=== PATIENT | female | born 1940 | race Caucasian/White ===

== ENCOUNTER 2019-09-15 08:40 | Outpatient (RCR) | payer MEDICARE, OTHER, SELFPAY ==
[2019-09-15 10:25] LABS: Basophils % 0.4 %; Eosinophils # 0.1 10^3/uL (0.0-0.8); Hematocrit 27.5 % (37.0-47.0); Hemoglobin 8.8 g/dL (11.5-15.3); Lymphocytes # 1.3 10^3/uL (0.8-4.8); Mean Corpuscular Hemoglobin 32.4 pg (28.0-34.0); Mean Corpuscular Volume 101.1 fL (81-99); Mean Platelet Volume 10.4 fL (7.4-10.4); Monocytes # 0.7 10^3/uL (0.2-0.9); Monocytes % 13.7 %; Neutrophils # 2.8 10^3/uL (1.8-7.7); Neutrophils % 56.5 %; Nucleated Red Blood Cells % 0 %; Platelet Count 142 10^3/cmm (130-400); Red Blood Count 2.72 10^6/uL (4.1-5.3); Red Cell Distribution Width 18.7 % (12.1-15.1); White Blood Count 4.9 10^3/uL (4.0-10.0)
[2019-09-15 10:42] LABS: Alanine Aminotransferase 9 U/L (0-33); Alkaline Phosphatase 48 IU/L (35-105); Anion Gap 15.7 (5-19); Aspartate Amino Transferase 23 U/L (0-32); Blood Urea Nitrogen 10 mg/dL (8-23); Calcium 9.5 mg/Dl (8.8-10.2); Carbon Dioxide 23 mmol/L (22-29); Chloride 103 mmol/L (98-107); Globulin 2.2 g/dL (1.3-4.6); Glucose 93 mg/dL (74-106); Potassium 3.7 mmol/L (3.5-5.1); Sodium 138 mmol/L (136-145); Total Bilirubin 0.5 mg/dL (0.15-1.2); Total Protein 6.2 g/dL (6.6-8.7)
--- NOTE | 2019-09-15 11:57 | ONC FU_ITS ---
[facility] Patient Note Patient: Lola Lozano Unit #: [id number]: 1940 Dictated By: Ray Wade M.D.Date of Visit: Sep 15, 2019 Onc MED Follow-Up/Prog Note Chief Complaint: Lung cancer. 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 In April 2019 she was admitted to [facility] in [place] after presenting with confusion and frequent falls. Her brain MRI showed a 2.5 x 3.8 x 2.3 cm left anterior frontal convexity mass with surrounding edema extending into the frontal, temporal, and anterior parietal subcortical and periventricular white matter. Her chest x-ray showed a left hilar mass. Her initial staging CT scans showed an irregularly marginated soft tissue density mass in the left suprahilar region measuring 4.5 cm. There was encasement and obstruction of a segmental branch of the left upper lobe bronchus. There was no evidence of mediastinal mass/adenopathy. A subtle opacity in the upper lobe of the right lung was felt to represent minimal infiltrate versus ill-defined small nodule. There were no other findings of metastatic disease. On 04/28/2019 she underwent left frontal craniotomy with resection of the mass. Pathology showed metastatic adenocarcinoma consistent with lung primary. The tumor was found to be negative for the ALK and ROS1 gene rearrangements. EGFR and BRAF mutations were not detected. PD-L1 expression was positive at 10% (membranous positivity). Her staging PET/CT on 05/23/2019 showed an FDG avid left hilar mass measuring 4.9 x 4.2 cm, SUV 13.84. A 1.3 cm nodular density in the upper lobe of the right lung showed no significant FDG uptake, SUV 0.68, consistent with benign disease. There was mild focal increased metabolic activity in the distal esophagus, maximum SUV 4.76, felt to be consistent with inflammatory changes. There was no evidence of mediastinal or distant metastatic disease. Follow recovery from the surgery she underwent CyberKnife radiosurgery, completed on 06/04/2019. She then underwent radiation concurrently with weekly carboplatin/paclitaxel chemotherapy to the primary lesion in the left lung. She completed her radiation on 08/01/2019. She received her sixth weekly infusion of carboplatin/paclitaxel on 07/30/2018. Overall, she tolerated the treatment well. Dr Wade had seen her initially on 08/05/2019. At that point she was still having some difficulty with swallowing and eating following the chemoradiation. She was having daily epistaxis, and she also was having significant diarrhea. She was treated empirically with Levaquin and acyclovir. Her stool was tested and was negative for C. difficile. Restaging CT of the chest on 08/12/2019 showed persistent left hilar region mass or lymphadenopathy measuring 4.8 right 3.6 x 2.6 cm. It appeared to have decreased slightly compared to the pretreatment PET/CT. There was persistent groundglass density in the posterior segment right upper lobe and there are small bilateral pleural effusions. There was no evidence of metastatic disease. She was seen in August 2019 for followup. She did have follow-up CT of the chest on 08/12/2019. It did report left hilar region neoplastic mass or lymphadenopathy. Persistent groundglass density posterior segment right upper lobe. Small bilateral pleural effusions. Chronic emphysema and extensive arteriosclerotic cardiovascular and peripheral vascular changes. Cardiomegaly and prior coronary bypass grafting and mitral valve replacement. Diffuse cortical atrophy of the left kidney. Cholelithiasis. Mrs. Lozano has been offered maintenance therapy with durvalumab. She will start her first cycle today. Ms. Lozano is here today for follow-up. She states overall she is feeling good. She has no new concerns. She denies any fever or chills. She states she is just cold in general which is normal for her. She denies any new shortness of breath. She denies orthopnea. She states she has not had any diarrhea or constipation. Her energy is about the same as always. Her appetite is good. She was informed that her hemoglobin is 8.8 today but she states she does not feel that bad and does not feel that she needs blood currently. Her ECOG is 1. Past Medical History: Carotid stenosis Chronic kidney disease Clostridium difficile colitis Congestive heart failure Coronary artery disease Hyperlipidemia Hypertension Peripheral arterial disease Renal artery stenosis Past Surgical History: Coronary angioplasty/stent placement Femoropopliteal bypass bilaterally ORIF for left ankle fracture ORIF for left foot fracture Right Right carotid endarterectomy Right internal juglar venous access device-[facility] [place] in 2018 Craniotomy with resection of left frontal lobe brain mass in 2019 Aortofemoral bypass in 2004 Renal artery stent placement in 2003 Triple-vessel coronary artery bypass in 2003 Allergies: No Known Allergies. Medications: Atorvastatin Calcium 1 Tablet (of 80 mg) Oral daily Bystolic 1 Tablet (of 5 mg) Oral daily Captopril 1 Tablet (of 25 mg) Oral b.i.d. Felodipine ER 1 Tablet (of 5 mg) Tablet SR 24 HR Oral daily Ondansetron HCl 1 Tablet (of 4 mg) Oral b.i.d. Prochlorperazine Maleate 1 Tablet (of 10 mg) Oral b.i.d. Family History: Ms. Lozano's mother at age 60: bone cancer, and diabetes. Ms. Lozano's father at age 72: old age. Ms. Lozano has 1 brother who is : bone cancer. She has 2 sisters: 2 alive. Father at age 72, reportedly of old age. Mother at age 60 with advanced malignancy. She also had diabetes. Primary site unknown to the patient. A brother at age 74, bone cancer. Two sisters are still living. One is known to have a cerebral aneurysm. Social History: Ms. Lozano is and she is retired. Ms. Lozano quit smoking less than one year ago but had smoked 0.5 packs/day for 60 years. She quit drinking 15 years ago. She has a history of smoking beginning at age 17, but reportedly no more than 6 cigarettes per day. She quit smoking in May 2019. She also had a long history of alcohol use, at times heavy. She quit drinking in 2003. Review Of Symptoms: Constitutional Denies fevers, chills, night sweats, excessive fatigue or weight loss. Allergic/Immunologic No reactions. Eyes Denies significant visual changes. No diplopia. No amaurosis. ENMT Denies changes in hearing, sore throat, mouth sores, difficulty or changes in swallowing ability, and/or sinus drainage. Endocrine No diabetes, thyroid disease or hormone replacement. Denies hot flashes or night sweats. Hematologic/Lymphatic Denies easy bruising or bleeding. The patient denies any tender or palpable lymph nodes. Respiratory Denies dyspnea on exertion, chest pain, cough or hemoptysis. Denies orthopnea. Cardiovascular Denies anginal chest pain, palpitations or orthopnea. Gastrointestinal Denies nausea, vomiting, diarrhea, GI bleeding, or constipation. Denies change in bowel habits and/or stool color, no heartburn or early satiety. Genitourinary (F) No hematuria, hesitancy, incontinence, vaginal bleeding, discharge or other problems with urination. Musculoskeletal Denies joint pain, swelling or redness. No decreased range of motion. Integumentary Denies chronic rashes, inflammation, ulcerations or skin changes. Neurologic Denies headache, blurred vision, and no areas of focal weakness or numbness. Normal gait. No sensory problems. Psychiatric Denies insomnia, depression, bebe or mood swings. Vital Signs: Performed on Sep 15, 2019 10:52 Height - 60.00 in Weight - 120.0 lbs (LOW) BSA - 1.50 sq.m BMI - 23.44 Temperature - 98.9 F (HIGH) Pulse - 67 /min Respiration - 16 /min BP - 144/65 mm(hg) (HIGH) O2 Sat - 96 % Pain - 0,1 - No physically strenuous activity, but ambulatory and able to carry out light or sedentary work (e.g. office work, light house work). (ECOG) Physical Examination: Constitutional Alert, oriented, no acute distress. Skin pink, warm and dry. Head Normocephalic; atraumatic. Eyes Conjunctivae and sclerae are clear and without icterus. Pupils are reactive and equal. ENMT No oral exudates, ulcers, masses, thrush or mucositis. Oropharynx clear. Tongue normal. Neck Supple without masses or thyromegaly. No jugular venous distension. Hematologic/Lymphatic No petechiae or purpura. No tender or palpable lymph nodes in the cervical or supraclavicular areas. Respiratory Lungs are clear to auscultation without rhonchi or wheezing. Cardiovascular Regular rate and rhythm of heart without murmurs,clicks, gallops or rubs. Chest Bruising in mid chest and right subclavian area due to recent Port a Cath insertion. Abdomen Non-tender, non-distended, no masses or ascites. Good bowel sounds noted in all quads. No guarding or rebound tenderness. No pulsatile masses. Back/Spine Non-tender to palpation. Extremities No visible deformities, no cyanosis, clubbing or edema. Musculoskeletal No tenderness or swelling, normal range of motion without obvious weakness. Integumentary No rashes or lesions. Neurologic No sensory or motor deficits, normal cerebellar function, normal gait. Psychiatric Alert and oriented times three. Coherent speech. Verbalizes understanding of our discussions today. Laboratory:Test performed on Sep 15, 2019 10:15 Glucose 93 mg/dL BUN 10 mg/dL Creatinine 0.8 mg/dL Cr Clearance (Est) 53.39 mL/min Sodium 138 mmol/L Potassium 3.7 mmol/L Chloride 103 mmol/L CO2 23 mmol/L Calcium 9.5 mg/dL Protein, Total 6.2 g/dL Albumin 4 g/dL Globulin 2.2 g/dL Bilirubin, Total 0.5 mg/dL Alkaline Phosphatase 48 IU/L AST (SGOT) 23 IU/L ALT (SGPT) 9 IU/L WBC 4.9 10^9/L RBC 2.72 10^12/L HGB 8.8 g/dL HCT 27.5 % MCV 101.1 fl MCH 32.4 pg MCHC 32 g/dL RDW 18.7 % Platelet Count 142 10^9/L MPV 10.4 fL Neutrophils (Gran) 2.8 10^9/L Lymphocytes 1.3 10^9/L Monocytes 0.7 10^9/L Eosinophils 0.1 10^9/L Basophils 0 10^9/L Impression: 1. 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 2. She underwent craniotomy with resection of left frontal lobe metastasis on 04/28/2019. Pathology showed metastatic adenocarcinoma consistent with lung primary. The tumor was negative for ALK and ROS1 rearrangements, and EGFR and BRAF mutations were not detected. The tumor showed positive PD-L1 expression at 10% (membranous positivity). 3. She underwent CyberKnife radiosurgery to the site of brain involvement, completed on 06/04/2019. 4. She then underwent treatment to the primary lesion in the left lung with radiation concurrently with weekly carboplatin/paclitaxel chemotherapy. Radiation was completed on 08/01/2019. She received a total of 6 weekly infusions of chemotherapy. Her other medical illnesses include: 5. Hypertension. 6. Hyperlipidemia. 7. Coronary artery disease with previous myocardial infarction and with triple coronary bypass in 2003. 8. Congestive heart failure. 9. Carotid stenosis with previous right carotid endarterectomy. 10. Peripheral arterial disease with previous aortofemoral bypass and femoropopliteal bypass bilaterally. 11. Renal artery stenosis with previous renal artery stent placement. 12. Chronic kidney disease. 13. Her records indicate a history of clostridium difficile colitis. Overall, she tolerated the chemoradiation pretty well. She does appear to have some response, though not dramatic. She did have follow-up CT of the chest on 08/12/2019. It did report left hilar region neoplastic mass or lymphadenopathy. Persistent groundglass density posterior segment right upper lobe. Small bilateral pleural effusions. Chronic emphysema and extensive arteriosclerotic cardiovascular and peripheral vascular changes. Cardiomegaly and prior coronary bypass grafting and mitral valve replacement. Diffuse cortical atrophy of the left kidney. Cholelithiasis. Mrs. Lozano has been offered maintenance therapy with durvalumab. She will start her first cycle today. Plan: 1. Proceed with cycle 1 durvalumab. 2. No planned premedication. 3. Today's labs were reviewed in detail and discussed with Ms. Lozano and a copy was given to her. WBC 4.9, hemoglobin 8.8, platelets 142,000 ANC is 2800. Creatinine 0.8 LFTs are normal random glucose is 93. 4. It is noted the bruising from recent Port-A-Cath insertion is healing. 5. We will plan to see her back in 2 weeks for cycle 2 durvalumab with CBC CMP and TSH. 6. I did request follow-up B12 and folate level for anemia. Her MCV is elevated. I also added a baseline TSH for immunotherapy monitoring today. 7. Mrs. Lozano was instructed to contact us in the interim should questions or problems arise. 8. Specific side effects of immunotherapy discussed included but not limited to: ??? pneumonitis: new or worsening cough; chest pain; and shortness of breath. ??? Colitis: diarrhea or more bowel movements than usual; blood in stools or dark, tarry, sticky stools; and severe stomach area (abdomen) pain or tenderness. ??? hepatitis: jaundice; severe nausea or vomiting; pain on the right side of the abdomen; drowsiness; dark urine; bleeding or bruise more easily than normal. ??? nephritis and kidney failure: including decrease in the amount of urine; hematuria; lower extremity edema; and loss of appetite. pancreatitis; hyperglycemia. ??? thyroid and pituitary changes that may include: headaches that will not go away or unusual headaches; extreme tiredness, weight gain or weight loss; changes in mood or behavior, such as decreased sex drive, irritability, or forgetfulness; dizziness or fainting; hair loss; feeling cold; constipation; and voice gets deeper. ???rash; changes in eyesight; severe or persistent muscle or joint pains; and severe muscle weakness. The majority of this visit was time spent face to face in review of plan of care, side effect identification and management. Signed By:PIETER Ramirez, AOLEBRON Wade M.D. <<Signature on File>>
[2019-09-16 09:06] LABS: Thyroid Stimulating Hormone 1.56 uIU/mL (0.27-4.20); Vitamin B12 303 pg/mL (232-1245)
[2019-09-16 09:07] LABS: Folate Level 8.5 ng/mL (4.8-37.3)
[2019-09-29 13:43] LABS: Basophils % 0.4 %; Eosinophils # 0.2 10^3/uL (0.0-0.8); Eosinophils % 2.6 %; Hemoglobin 10.1 g/dL (11.5-15.3); Lymphocytes # 1.8 10^3/uL (0.8-4.8); Lymphocytes % 26.7 %; Mean Corpuscular HGB Conc 31.6 g/dL (30.0-36.0); Mean Corpuscular Hemoglobin 33.2 pg (28.0-34.0); Mean Corpuscular Volume 105.3 fL (81-99); Mean Platelet Volume 9.9 fL (7.4-10.4); Monocytes # 0.8 10^3/uL (0.2-0.9); Monocytes % 11.6 %; Neutrophils % 58.4 %; Nucleated Red Blood Cells % 0 %; Platelet Count 148 10^3/cmm (130-400); Red Blood Count 3.04 10^6/uL (4.1-5.3); Red Cell Distribution Width 16.6 % (12.1-15.1); White Blood Count 6.9 10^3/uL (4.0-10.0)
[2019-09-29 14:39] LABS: Alanine Aminotransferase 12 U/L (0-33); Albumin Level 3.6 g/dL (3.5-5.2); Alkaline Phosphatase 49 IU/L (35-105); Anion Gap 17.1 (5-19); Aspartate Amino Transferase 31 U/L (0-32); Blood Urea Nitrogen 12 mg/dL (8-23); Carbon Dioxide 23 mmol/L (22-29); Chloride 103 mmol/L (98-107); Globulin 3.7 g/dL (1.3-4.6); Glucose 90 mg/dL (74-106); Potassium 4.1 mmol/L (3.5-5.1); Sodium 139 mmol/L (136-145); Thyroid Stimulating Hormone 1.76 uIU/mL (0.27-4.20); Total Bilirubin 0.6 mg/dL (0.15-1.2); Total Protein 7.3 g/dL (6.6-8.7)
== END 2019-10-10 23:59 | disposition home or self-care (01) ==
LOC: ONCMED 08:40
PROVIDERS: Nurse Practitioner; Visit Provider Internal Medicine Medical Oncology
DX: Z51.12 Encounter for antineoplastic immunotherapy (principal); C34.02 Malignant neoplasm of left main bronchus; C79.31 Secondary malignant neoplasm of brain; J43.9 Emphysema, unspecified; I25.10 Atherosclerotic heart disease of native coronary artery without angina pectoris; I73.9 Peripheral vascular disease, unspecified; N18.9 Chronic kidney disease, unspecified; I10 Essential (primary) hypertension; I50.9 Heart failure, unspecified; E78.5 Hyperlipidemia, unspecified; Z79.899 Other long term (current) drug therapy; Z95.1 Presence of aortocoronary bypass graft; Z95.2 Presence of prosthetic heart valve; Z95.5 Presence of coronary angioplasty implant and graft; Z92.3 Personal history of irradiation
CPT/HCPCS: 80053; 82607; 82746; 84443; 85025; 96413; 99214; A4222; J7050; J9173

== ENCOUNTER 2019-09-29 12:44 | Outpatient (CLI) | payer MEDICARE, OTHER, SELFPAY ==
--- NOTE | 2019-10-03 21:22 | ONC FU_ITS ---
Dr. Wade Patient Follow-Up Note Patient: Lola Lozano Unit #: [id number]: [id number] Dicatated By: Ray Wade M.D.Date of Visit:Sep 29, 2019 Onc Med Follow-up/Prog Note Chief Complaint: Lung cancer. 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 In April 2019 she was admitted to [facility] in [place] after presenting with confusion and frequent falls. Her brain MRI showed a 2.5 x 3.8 x 2.3 cm left anterior frontal convexity mass with surrounding edema extending into the frontal, temporal, and anterior parietal subcortical and periventricular white matter. Her chest x-ray showed a left hilar mass. Her initial staging CT scans showed an irregularly marginated soft tissue density mass in the left suprahilar region measuring 4.5 cm. There was encasement and obstruction of a segmental branch of the left upper lobe bronchus. There was no evidence of mediastinal mass/adenopathy. A subtle opacity in the upper lobe of the right lung was felt to represent minimal infiltrate versus ill-defined small nodule. There were no other findings of metastatic disease. On 04/28/2019 she underwent left frontal craniotomy with resection of the mass. Pathology showed metastatic adenocarcinoma consistent with lung primary. The tumor was found to be negative for the ALK and ROS1 gene rearrangements. EGFR and BRAF mutations were not detected. PD-L1 expression was positive at 10% (membranous positivity). Her staging PET/CT on 05/23/2019 showed an FDG avid left hilar mass measuring 4.9 x 4.2 cm, SUV 13.84. A 1.3 cm nodular density in the upper lobe of the right lung showed no significant FDG uptake, SUV 0.68, consistent with benign disease. There was mild focal increased metabolic activity in the distal esophagus, maximum SUV 4.76, felt to be consistent with inflammatory changes. There was no evidence of mediastinal or distant metastatic disease. Follow recovery from the surgery she underwent CyberKnife radiosurgery, completed on 06/04/2019. She then underwent radiation concurrently with weekly carboplatin/paclitaxel chemotherapy to the primary lesion in the left lung. She completed her radiation on 08/01/2019. She received her sixth weekly infusion of carboplatin/paclitaxel on 07/30/2018. Overall, she tolerated the treatment well. I had seen her initially on 08/05/2019. At that point she was still having some difficulty with swallowing and eating following the chemoradiation. She was having daily epistaxis, and she also was having significant diarrhea. She was treated empirically with Levaquin and acyclovir. Her stool was tested and was negative for C. difficile. Restaging CT of the chest on 08/12/2019 showed persistent left hilar region mass or lymphadenopathy measuring 4.8 right 3.6 x 2.6 cm. It appeared to have decreased slightly compared to the pretreatment PET/CT. There was persistent groundglass density in the posterior segment right upper lobe and there are small bilateral pleural effusions. There was no evidence of metastatic disease. With those findings, she was eligible for maintenance therapy with durvalumab. She began cycle 1 on 09/15/2019. She is seen now for a follow-up visit. She has been feeling pretty good generally. She has pretty good energy, at least until afternoon. She is doing light work. Her ECOG score is 1. She says she is eating more, but she has lost a little more weight. She does not have fever. She occasionally has sweating at night. She continues to have some sinus drainage. She says her breathing is fine. She has some cough, but not as much. She does not complain of chest pain. She still has some heartburn. She has no other GI or complaints. She reports having some pain on her left side, mainly when she is sitting. She has some soreness in her ribs. She does not complain of headache, and she has no focal neurologic symptoms. Medications: Atorvastatin Calcium 1 Tablet (of 80 mg) Oral daily, Bystolic 1 Tablet (of 5 mg) Oral daily, Captopril 1 Tablet (of 25 mg) Oral b.i.d., Felodipine ER 1 Tablet (of 5 mg) Tablet SR 24 HR Oral daily, Ondansetron HCl 1 Tablet (of 4 mg) Oral b.i.d., Prochlorperazine Maleate 1 Tablet (of 10 mg) Oral b.i.d. Allergies: No Known Allergies. Review of Systems: Constitutional - Her energy is pretty good until afternoon. Her appetite is getting better. No fever. She occasionally has sweating at night. ECOG score is 1, ENMT - She has some sinus congestion/drainage. No further epistaxis. No mouth sores. No sore throat. No difficulty swallowing, Hematologic/Lymphatic - She bruises easily, Respiratory - Her breathing is fine. She has cough, but not much. No pleuritic pain or hemoptysis, Cardiovascular - No angina pain. No palpitations, Gastrointestinal - No nausea or vomiting. She has heartburn. No diarrhea or constipation. No blood in the stool or black stools, Genitourinary (F) - No dysuria or hematuria. No urinary frequency. No urgency or incontinence, Musculoskeletal - She has some pain on her left side and she has some soreness in her ribs, Integumentary - No skin rash, Neurologic - No headache or dizziness. No numbness/paresthesias or other focal neurologic symptoms, Psychiatric - She has some depression. No insomnia. Vital Signs: Performed on Sep 29, 2019 14:49 Height - 60.00 in Weight - 118.6 lbs (LOW) BSA - 1.49 sq.m BMI - 23.16 Temperature - 99.0 F (HIGH) Pulse - 62 /min Respiration - 24 /min BP - 121/60 mm(hg) O2 Sat - 98 % Pain - 0 Physical Examination: Constitutional - She looks pretty good generally, Eyes - Sclerae nonicteric. Conjunctivae clear, ENMT - No lesions noted in the oral cavity, Hematologic/Lymphatic - No cervical, clavicular, or axillary adenopathy, Respiratory - Lungs sound clear with diminished air movement bilaterally, Cardiovascular - Heart rhythm is irregular. There is no murmur, gallop, or rub noted, Abdomen - Soft. Liver and spleen are not enlarged. There is no abdominal mass or ascites noted and there is no inguinal adenopathy, Extremities - No edema, Integumentary - There is no evidence of skin eruption, Neurologic - No focal neurologic deficits noted. Lab/Imaging: Test performed on Sep 29, 2019 14:55 TSH 1.76 uU/mL Glucose 90 mg/dL BUN 12 mg/dL Creatinine 0.8 mg/dL Cr Clearance (Est) 53.39 mL/min Sodium 139 mmol/L Potassium 4.1 mmol/L Chloride 103 mmol/L CO2 23 mmol/L Calcium 10 mg/dL Protein, Total 7.3 g/dL Albumin 3.6 g/dL Globulin 3.7 g/dL Bilirubin, Total 0.6 mg/dL Alkaline Phosphatase 49 IU/L AST (SGOT) 31 IU/L ALT (SGPT) 12 IU/L Test performed on Sep 29, 2019 14:12 WBC 6.9 10^9/L RBC 3.04 10^12/L HGB 10.1 g/dL HCT 32 % MCV 105.3 fl MCH 33.2 pg MCHC 31.6 g/dL RDW 16.6 % Platelet Count 148 10^9/L MPV 9.9 fL Neutrophils (Gran) 4 10^9/L Lymphocytes 1.8 10^9/L Monocytes 0.8 10^9/L Eosinophils 0.2 10^9/L Basophils 0 10^9/L Manual Segs 58.4 % Manual Lymphocytes 26.7 % Manual Monocytes 11.6 % Manual Eosinophils 2.6 % Manual Basophils 0.4 % NRBCs 0 /100 WBC Impression: 1. 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 2. She underwent craniotomy with resection of left frontal lobe metastasis on 04/28/2019. Pathology showed metastatic adenocarcinoma consistent with lung primary. The tumor was negative for ALK and ROS1 rearrangements, and EGFR and BRAF mutations were not detected. The tumor showed positive PD-L1 expression at 10% (membranous positivity). 3. She underwent CyberKnife radiosurgery to the site of brain involvement, completed on 06/04/2019. 4. She then underwent treatment to the primary lesion in the left lung with radiation concurrently with weekly carboplatin/paclitaxel chemotherapy. Radiation was completed on 08/01/2019. She received a total of 6 weekly infusions of chemotherapy. Her other medical illnesses include: 5. Hypertension. 6. Hyperlipidemia. 7. Coronary artery disease with previous myocardial infarction and with triple coronary bypass in 2003. 8. Congestive heart failure. 9. Carotid stenosis with previous right carotid endarterectomy. 10. Peripheral arterial disease with previous aortofemoral bypass and femoropopliteal bypass bilaterally. 11. Renal artery stenosis with previous renal artery stent placement. 12. Chronic kidney disease. 13. Her records indicate a history of clostridium difficile colitis. Overall, she tolerated the chemoradiation pretty well. She appeared to have some response by followup CT scan, though it was not dramatic. Nonetheless, she did meet criteria for maintenance therapy with avelumab. She began cycle 1 on 09/15/2019. She tolerated it well. Overall, she has continued to show gradual improvement in her performance status since completing the chemoradiation. Plan: She will continue with cycle 2 of her avelumab. The dosage remains the same. She will be scheduled for a follow-up visit in 2 weeks. In the meantime, she will be given a prescription for Protonix for the GERD symptoms. Signed By: Ray Wade M.D. <<Signature on File>>
== END 2019-09-29 12:45 | disposition home or self-care (01) ==
LOC: ONCMED 12:44
PROVIDERS: Visit Provider Internal Medicine Medical Oncology
DX: Z51.12 Encounter for antineoplastic immunotherapy (principal); C34.02 Malignant neoplasm of left main bronchus; C79.31 Secondary malignant neoplasm of brain; E78.5 Hyperlipidemia, unspecified; I25.10 Atherosclerotic heart disease of native coronary artery without angina pectoris; I25.2 Old myocardial infarction; I50.9 Heart failure, unspecified; I73.9 Peripheral vascular disease, unspecified; I13.0 Hypertensive heart and chronic kidney disease with heart failure and stage 1 through stage 4 chronic kidney disease, or unspecified chronic kidney disease; N18.9 Chronic kidney disease, unspecified; K21.9 Gastro-esophageal reflux disease without esophagitis; Z95.1 Presence of aortocoronary bypass graft; Z92.3 Personal history of irradiation
CPT/HCPCS: 96413; 99214; J7050; J9173

== ENCOUNTER 2019-10-27 05:40 | Outpatient (RCR) | payer MEDICARE, OTHER, SELFPAY ==
[2019-10-13] MEDS: alteplase 1 mg/mL SDV 2 mL 2 MG IV (09:58)
[2019-10-13 10:14] LABS: Basophils % 0.4 %; Eosinophils # 0.2 10^3/uL (0.0-0.8); Eosinophils % 2.7 %; Hematocrit 31.5 % (37.0-47.0); Lymphocytes # 1.8 10^3/uL (0.8-4.8); Lymphocytes % 26.3 %; Mean Corpuscular HGB Conc 31.7 g/dL (30.0-36.0); Mean Corpuscular Hemoglobin 32.7 pg (28.0-34.0); Mean Corpuscular Volume 102.9 fL (81-99); Mean Platelet Volume 10.2 fL (7.4-10.4); Monocytes # 0.9 10^3/uL (0.2-0.9); Monocytes % 13.5 %; Neutrophils # 3.8 10^3/uL (1.8-7.7); Neutrophils % 56.7 %; Nucleated Red Blood Cells % 0 %; Platelet Count 137 10^3/cmm (130-400); Red Blood Count 3.06 10^6/uL (4.1-5.3); White Blood Count 6.7 10^3/uL (4.0-10.0)
[2019-10-13 10:37] LABS: Alanine Aminotransferase 10 U/L (0-33); Albumin Level 3.5 g/dL (3.5-5.2); Alkaline Phosphatase 63 IU/L (35-105); Aspartate Amino Transferase 24 U/L (0-32); Blood Urea Nitrogen 17 mg/dL (8-23); Calcium 9.6 mg/dL (8.5-10.5); Carbon Dioxide 25 mmol/L (22-29); Chloride 100 mmol/L (98-107); Globulin 3.9 g/dL (1.3-4.6); Glucose 102 mg/dL (74-106); Sodium 135 mmol/L (136-145); Thyroid Stimulating Hormone 2.69 uIU/mL (0.27-4.20); Total Bilirubin 0.3 mg/dL (0.15-1.2); Total Protein 7.4 g/dL (6.6-8.7)
--- NOTE | 2019-10-13 12:10 | ONC FU_ITS ---
[facility] Patient Note Patient: Lola Lozano Unit #: [id number]: 1940 Dictated By: Alvarez RamirezDate of Visit: Oct 13, 2019 Onc MED Follow-Up/Prog Note Chief Complaint: Lung cancer. 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 In April 2019 she was admitted to [facility] in [place] after presenting with confusion and frequent falls. Her brain MRI showed a 2.5 x 3.8 x 2.3 cm left anterior frontal convexity mass with surrounding edema extending into the frontal, temporal, and anterior parietal subcortical and periventricular white matter. Her chest x-ray showed a left hilar mass. Her initial staging CT scans showed an irregularly marginated soft tissue density mass in the left suprahilar region measuring 4.5 cm. There was encasement and obstruction of a segmental branch of the left upper lobe bronchus. There was no evidence of mediastinal mass/adenopathy. A subtle opacity in the upper lobe of the right lung was felt to represent minimal infiltrate versus ill-defined small nodule. There were no other findings of metastatic disease. On 04/28/2019 she underwent left frontal craniotomy with resection of the mass. Pathology showed metastatic adenocarcinoma consistent with lung primary. The tumor was found to be negative for the ALK and ROS1 gene rearrangements. EGFR and BRAF mutations were not detected. PD-L1 expression was positive at 10% (membranous positivity). Her staging PET/CT on 05/23/2019 showed an FDG avid left hilar mass measuring 4.9 x 4.2 cm, SUV 13.84. A 1.3 cm nodular density in the upper lobe of the right lung showed no significant FDG uptake, SUV 0.68, consistent with benign disease. There was mild focal increased metabolic activity in the distal esophagus, maximum SUV 4.76, felt to be consistent with inflammatory changes. There was no evidence of mediastinal or distant metastatic disease. Follow recovery from the surgery she underwent CyberKnife radiosurgery, completed on 06/04/2019. She then underwent radiation concurrently with weekly carboplatin/paclitaxel chemotherapy to the primary lesion in the left lung. She completed her radiation on 08/01/2019. She received her sixth weekly infusion of carboplatin/paclitaxel on 07/30/2018. Overall, she tolerated the treatment well. Dr Wade had seen her initially on 08/05/2019. At that point she was still having some difficulty with swallowing and eating following the chemoradiation. She was having daily epistaxis, and she also was having significant diarrhea. She was treated empirically with Levaquin and acyclovir. Her stool was tested and was negative for C. difficile. Restaging CT of the chest on 08/12/2019 showed persistent left hilar region mass or lymphadenopathy measuring 4.8 right 3.6 x 2.6 cm. It appeared to have decreased slightly compared to the pretreatment PET/CT. There was persistent groundglass density in the posterior segment right upper lobe and there are small bilateral pleural effusions. There was no evidence of metastatic disease. With those findings, she was eligible for maintenance therapy with durvalumab. She began cycle 1 on 09/15/2019. Mrs. Lozano is here today for follow-up. She is due for cycle 3 durvalumab. She states overall she is doing well. She states her appetite has improved she has now eating 2 meals a day. She feels her GERD symptoms are improved. She did start taking the Protonix. She denies any nausea or vomiting. She denies any diarrhea or constipation. She has had no new shortness of breath orthopnea. She states her breathing is good. She denies any change in her fatigue other than it seems to be getting better. She denies any pain particularly any abdominal cramping or pain. She is able to do all her ADLs without assistance. She denies any lower extremity edema. Her ECOG is 1. Past Medical History: Carotid stenosis Chronic kidney disease Clostridium difficile colitis Congestive heart failure Coronary artery disease Hyperlipidemia Hypertension Peripheral arterial disease Renal artery stenosis Past Surgical History: Coronary angioplasty/stent placement Femoropopliteal bypass bilaterally ORIF for left ankle fracture ORIF for left foot fracture Right Right carotid endarterectomy Right internal juglar venous access device-[facility] in 2018 Craniotomy with resection of left frontal lobe brain mass in 2019 Aortofemoral bypass in 2004 Renal artery stent placement in 2003 Triple-vessel coronary artery bypass in 2003 Allergies: No Known Allergies. Medications: Atorvastatin Calcium 1 Tablet (of 80 mg) Oral daily Bystolic 1 Tablet (of 5 mg) Oral daily Captopril 1 Tablet (of 25 mg) Oral b.i.d. Felodipine ER 1 Tablet (of 5 mg) Tablet SR 24 HR Oral daily Ondansetron HCl 1 Tablet (of 4 mg) Oral b.i.d. Prochlorperazine Maleate 1 Tablet (of 10 mg) Oral b.i.d. Family History: Ms. Lozano's mother at age 60: bone cancer, and diabetes. Ms. Lozano's father at age 72: old age. Ms. Lozano has 1 brother who is : bone cancer. She has 2 sisters: 2 alive. Father at age 72, reportedly of old age. Mother at age 60 with advanced malignancy. She also had diabetes. Primary site unknown to the patient. A brother at age 74, bone cancer. Two sisters are still living. One is known to have a cerebral aneurysm. Social History: Ms. Lozano is and she is retired. Ms. Lozano quit smoking less than one year ago but had smoked 0.5 packs/day for 60 years. She quit drinking 15 years ago. She has a history of smoking beginning at age 17, but reportedly no more than 6 cigarettes per day. She quit smoking in May 2019. She also had a long history of alcohol use, at times heavy. She quit drinking in 2003. Review Of Symptoms: Constitutional Denies fevers, chills, night sweats, excessive fatigue or weight loss. Appetite better after starting Protonix. Eating two meals a day. Allergic/Immunologic No reactions. Eyes Denies significant visual changes. No diplopia. No amaurosis. ENMT Denies changes in hearing, sore throat, mouth sores, difficulty or changes in swallowing ability, and/or sinus drainage. Endocrine No diabetes, thyroid disease or hormone replacement. Denies hot flashes or night sweats. Hematologic/Lymphatic Denies easy bruising or bleeding. The patient denies any tender or palpable lymph nodes. Respiratory Denies dyspnea on exertion, chest pain, cough or hemoptysis. Denies orthopnea. Cardiovascular Denies anginal chest pain, palpitations or orthopnea. Gastrointestinal Denies nausea, vomiting, diarrhea, GI bleeding, or constipation. Denies change in bowel habits and/or stool color, no heartburn or early satiety. Genitourinary (F) No hematuria, hesitancy, incontinence, vaginal bleeding, discharge or other problems with urination. Musculoskeletal Denies joint pain, swelling or redness. No decreased range of motion. Integumentary Denies chronic rashes, inflammation, ulcerations or skin changes. Neurologic Denies headache, blurred vision, and no areas of focal weakness or numbness. Normal gait. No sensory problems. Psychiatric Denies insomnia, depression, bebe or mood swings. Vital Signs: Performed on Oct 13, 2019 11:22 Height - 60.00 in Weight - 120.0 lbs (HIGH) BSA - 1.50 sq.m BMI - 23.44 Temperature - 98.8 F Pulse - 63 /min Respiration - 20 /min BP - 139/61 mm(hg) O2 Sat - 97 % Pain - 0,1 - No physically strenuous activity, but ambulatory and able to carry out light or sedentary work (e.g. office work, light house work). (ECOG) Physical Examination: Constitutional Alert, oriented, no acute distress. Skin pink, warm and dry. Head Normocephalic; atraumatic. Eyes Conjunctivae and sclerae are clear and without icterus. Pupils are reactive and equal. ENMT No oral exudates, ulcers, masses, thrush or mucositis. Oropharynx clear. Tongue normal. Neck Supple without masses or thyromegaly. No jugular venous distension. Hematologic/Lymphatic No petechiae or purpura. No tender or palpable lymph nodes in the cervical or supraclavicular areas. Respiratory Lungs are clear to auscultation without rhonchi or wheezing. Cardiovascular Regular rate and rhythm of heart without murmurs,clicks, gallops or rubs. Chest Right chest wall venous access device placement site is unremarkable. Abdomen Non-tender, non-distended, no masses or ascites. Good bowel sounds noted in all quads. No guarding or rebound tenderness. No pulsatile masses. Back/Spine Non-tender to palpation. Extremities No visible deformities, no cyanosis, clubbing or edema. Musculoskeletal No tenderness or swelling, normal range of motion without obvious weakness. Integumentary No rashes or lesions. Neurologic No sensory or motor deficits, normal cerebellar function, normal gait. Psychiatric Alert and oriented times three. Coherent speech. Verbalizes understanding of our discussions today. Laboratory:Test performed on Oct 13, 2019 10:00 Sodium 135 mmol/L TSH 2.69 uIU/mL Potassium 4.0 mmol/L Chloride 100 mmol/L CO2 25 mmol/L Anion Gap 14.0 BUN 17 mg/dL Creatinine 0.8 mg/dL Cr Clearance (Est) 53.3900 mL/min Glucose 102 mg/dL Calcium 9.6 mg/dL Protein, Total 7.4 g/dL Albumin 3.5 g/dL Globulin 3.9 g/dL Bilirubin, Total 0.3 mg/dL ALT (SGPT) 10 U/L AST (SGOT) 24 U/L Alkaline Phosphatase 63 IU/L WBC 6.7 10 3/uL RBC 3.06 10 6/uL HGB 10.0 g/dL HCT 31.5 % MCV 102.9 fL MCH 32.7 pg MCHC 31.7 g/dL RDW 15.0 % Platelet Count 137 10 3/cmm MPV 10.2 fL Neutrophils 3.8 10 3/uL Lymphocytes 1.8 10 3/uL Monocytes 0.9 10 3/uL Eosinophils 0.2 10 3/uL Basophils 0.0 10 3/uL Neutrophil % 56.7 % Lymphocyte % 26.3 % Monocyte % 13.5 % Eosinophil % 2.7 % Basophils % 0.4 % Test performed on Sep 29, 2019 14:12 Manual Segs 58.4 % Manual Lymphocytes 26.7 % Manual Monocytes 11.6 % Manual Eosinophils 2.6 % Manual Basophils 0.4 % NRBCs 0 /100 WBC Test performed on Aug 06, 2019 07:30 C Difficile Culture (Stool) Not Detected Impression: 1. 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 2. She underwent craniotomy with resection of left frontal lobe metastasis on 04/28/2019. Pathology showed metastatic adenocarcinoma consistent with lung primary. The tumor was negative for ALK and ROS1 rearrangements, and EGFR and BRAF mutations were not detected. The tumor showed positive PD-L1 expression at 10% (membranous positivity). 3. She underwent CyberKnife radiosurgery to the site of brain involvement, completed on 06/04/2019. 4. She then underwent treatment to the primary lesion in the left lung with radiation concurrently with weekly carboplatin/paclitaxel chemotherapy. Radiation was completed on 08/01/2019. She received a total of 6 weekly infusions of chemotherapy. Her other medical illnesses include: 5. Hypertension. 6. Hyperlipidemia. 7. Coronary artery disease with previous myocardial infarction and with triple coronary bypass in 2003. 8. Congestive heart failure. 9. Carotid stenosis with previous right carotid endarterectomy. 10. Peripheral arterial disease with previous aortofemoral bypass and femoropopliteal bypass bilaterally. 11. Renal artery stenosis with previous renal artery stent placement. 12. Chronic kidney disease. 13. Her records indicate a history of clostridium difficile colitis. Overall, she tolerated the chemoradiation pretty well. She appeared to have some response by followup CT scan, though it was not dramatic. Nonetheless, she did meet criteria for maintenance therapy with avelumab. She began cycle 1 on 09/15/2019. She tolerated it well. Overall, she has continued to show gradual improvement in her performance status since completing the chemoradiation. She has now completed 2 cycles and is tolerating that well. She continues to have improvement in her performance status. Plan: 1. Proceed with cycle 3 durvalumab. Her dose remains the same. 2. Continue Protonix daily for GERD symptoms as they have dramatically improved. 3. Today's labs reviewed in detail and discussed with Ms. Lozano and a copy was given to her. WBC 6.7, hemoglobin 10, platelets 137,000 ANC is 3800. Potassium 4.0 random glucose 102 creatinine is 0.8 and LFTs are normal. TSH is stable at 2.69. 4. We will plan to see her back in 2 weeks with CBC, CMP and TSH for immunotherapy monitoring. She will be due for cycle 4 durvalumab at that time. 5. Mrs. Lozano was instructed to contact us in the interim should questions or problems arise. Signed By: Alicia Ramirez.N.P.-NISHA, ELIANAP Ray Wade MD <<Signature on File>>
[2019-10-27] MEDS: alteplase 1 mg/mL SDV 2 mL 2 MG IV (08:29)
[2019-10-27 09:29] LABS: Basophils % 0.5 %; Eosinophils # 0.1 10^3/uL (0.0-0.8); Eosinophils % 2.2 %; Hematocrit 31.4 % (37.0-47.0); Hemoglobin 9.9 g/dL (11.5-15.3); Lymphocytes # 1.4 10^3/uL (0.8-4.8); Lymphocytes % 21.2 %; Mean Corpuscular HGB Conc 31.5 g/dL (30.0-36.0); Mean Corpuscular Hemoglobin 31.7 pg (28.0-34.0); Mean Corpuscular Volume 100.6 fL (81-99); Mean Platelet Volume 10.2 fL (7.4-10.4); Monocytes # 0.7 10^3/uL (0.2-0.9); Monocytes % 11.2 %; Neutrophils # 4.1 10^3/uL (1.8-7.7); Neutrophils % 64.4 %; Nucleated Red Blood Cells % 0 %; Platelet Count 160 10^3/cmm (130-400); Red Blood Count 3.12 10^6/uL (4.1-5.3); Red Cell Distribution Width 13.5 % (12.1-15.1); White Blood Count 6.4 10^3/uL (4.0-10.0)
[2019-10-27 10:01] LABS: Alanine Aminotransferase 11 U/L (0-33); Albumin Level 3.6 g/dL (3.5-5.2); Alkaline Phosphatase 70 IU/L (35-105); Anion Gap 15.7 (5-19); Aspartate Amino Transferase 23 U/L (0-32); Blood Urea Nitrogen 23 mg/dL (8-23); Calcium 9.8 mg/dL (8.5-10.5); Carbon Dioxide 22 mmol/L (22-29); Chloride 105 mmol/L (98-107); Globulin 3.3 g/dL (1.3-4.6); Glucose 103 mg/dL (65-115); Potassium 3.7 mmol/L (3.5-5.1); Sodium 139 mmol/L (136-145); Thyroid Stimulating Hormone 2.89 uIU/mL (0.27-4.20); Total Bilirubin 0.3 mg/dL (0.15-1.2); Total Protein 6.9 g/dL (6.6-8.7)
--- NOTE | 2019-10-27 10:21 | ONC FU_ITS ---
Dr. Waed Patient Follow-Up Note Patient: Loal Lozano Unit #: [id number]: 1940 Dicatated By: Ray Wade M.D.Date of Visit:Oct 27, 2019 Onc Med Follow-up/Prog Note Chief Complaint: Lung cancer. 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 In April [address] was admitted [address] [facility] in [place] after presenting with confusion and frequent falls. Her brain MRI showed a 2.5 x 3.8 x 2.3 cm left anterior frontal convexity mass with surrounding edema extending into the frontal, temporal, and anterior parietal subcortical and periventricular white matter. Her chest x-ray showed a left hilar mass. Her initial staging CT scans showed an irregularly marginated soft tissue density mass in the left suprahilar region measuring 4.5 cm. There was encasement and obstruction of a segmental branch of the left upper lobe bronchus. There was no evidence of mediastinal mass/adenopathy. A subtle opacity in the upper lobe of the right lung was felt to represent minimal infiltrate versus ill-defined small nodule. There were no other findings of metastatic disease. On 04/28/2019 she underwent left frontal craniotomy with resection of the mass. Pathology showed metastatic adenocarcinoma consistent with lung primary. The tumor was found to be negative for the ALK and ROS1 gene rearrangements. EGFR and BRAF mutations were not detected. PD-L1 expression was positive at 10% (membranous positivity). Her staging PET/CT on 05/23/2019 showed an FDG avid left hilar mass measuring 4.9 x 4.2 cm, SUV 13.84. A 1.3 cm nodular density in the upper lobe of the right lung showed no significant FDG uptake, SUV 0.68, consistent with benign disease. There was mild focal increased metabolic activity in the distal esophagus, maximum SUV 4.76, felt to be consistent with inflammatory changes. There was no evidence of mediastinal or distant metastatic disease. Follow recovery from the surgery she underwent CyberKnife radiosurgery, completed on 06/04/2019. She then underwent radiation concurrently with weekly carboplatin/paclitaxel chemotherapy to the primary lesion in the left lung. She completed her radiation on 08/01/2019. She received her sixth weekly infusion of carboplatin/paclitaxel on 07/30/2018. Overall, she tolerated the treatment well. I had seen her initially on 08/05/2019. At that point she was still having some difficulty with swallowing and eating following the chemoradiation. She was having daily epistaxis, and she also was having significant diarrhea. She was treated empirically with Levaquin and acyclovir. Her stool was tested and was negative for C. difficile. Restaging CT of the chest on 08/12/2019 showed persistent left hilar region mass or lymphadenopathy measuring 4.8 right 3.6 x 2.6 cm. It appeared to have decreased slightly compared to the pretreatment PET/CT. There was persistent groundglass density in the posterior segment right upper lobe and there are small bilateral pleural effusions. There was no evidence of metastatic disease. With those findings, she was eligible for maintenance therapy with durvalumab. She began cycle 1 on 09/15/2019. She tolerated well, and she was able to continue with cycle 2 on 09/29/2019 and with cycle 3 on 10/13/2019. She is seen for a scheduled visit. She has been feeling pretty good generally. She does not have much activity, but she is doing light housework. ECOG score is 1. Her appetite has improved. Her weight is up a couple of pounds. She does not have fever or night sweats. She has a little bit of sinus drainage. She does not complain of shortness of breath or cough, and she has not been having any chest pain. She currently has no GI complaints. She says her bowels are better now. Bladder function remains adequate, though she does get up frequently at night. She says her left foot is sometimes sore, but that is associated with a previous injury. She has no other joint or bone pain. She has some numbness in the right hand, but it is intermittent. She has no other focal neurologic symptoms. Medications: Atorvastatin Calcium 1 Tablet (of 80 mg) Oral daily, Bystolic 1 Tablet (of 5 mg) Oral daily, Captopril 1 Tablet (of 25 mg) Oral b.i.d., Felodipine ER 1 Tablet (of 5 mg) Tablet SR 24 HR Oral daily, Ondansetron HCl 1 Tablet (of 4 mg) Oral b.i.d., Prochlorperazine Maleate 1 Tablet (of 10 mg) Oral b.i.d. Allergies: No Known Allergies. Review of Systems: Constitutional - Her energy is pretty good, though she still doesn't have much activity. She is doing light housework. Her appetite is getting better. Her weight is up a couple of pounds. No fever or night sweats. ECOG score is 1, ENMT - She has a little bit of sinus drainage. No mouth sores. No sore throat. No difficulty swallowing, Hematologic/Lymphatic - She has a little bruising. No other bleeding. She has been anemic, Respiratory - Her breathing is OK. She does not complain of cough. No pleuritic pain or hemoptysis, Cardiovascular - No angina pain. No palpitations, Gastrointestinal - No nausea or vomiting. Her acid reflux is controlled with medication. Her bowels are better. She currently is not having diarrhea or constipation. No blood in the stool or black stools, Genitourinary (F) - No dysuria or hematuria. No urinary frequency, but she does have nocturia. No urgency or incontinence, Musculoskeletal - No significant joint or bone pain, Integumentary - No skin rash, Neurologic - No headache or dizziness. She has some numbness in the right hand, but it is intermittent. She has no other focal neurologic symptoms, Psychiatric - She sometimes gets nervous. No depression. No insomnia. Vital Signs: Performed on Oct 27, 2019 09:26 Height - 60.00 in Weight - 122 lbs (HIGH) BSA - 1.51 sq.m BMI - 23.83 Temperature - 97.9 F (LOW) Pulse - 64 /min Respiration - 18 /min BP - 131/54 mm(hg) O2 Sat - 97 % Pain - 0 Physical Examination: Constitutional - She looks pretty good generally, Eyes - Sclerae nonicteric. Conjunctivae clear, ENMT - No lesions noted in the oral cavity, Hematologic/Lymphatic - No cervical, clavicular, or axillary adenopathy, Respiratory - Lungs sound clear with slightly diminished air movement on the right, Cardiovascular - Heart rhythm appears regular. There is a I/ systolic murmur at the bas. There is no gallop or rub noted, Abdomen - Soft. Liver and spleen are not enlarged. There is no abdominal mass or ascites noted and there is no inguinal adenopathy, Extremities - No edema, Neurologic - No focal neurologic deficits noted. Lab/Imaging: Test performed on Oct 27, 2019 08:53 WBC 6.4 10 3/uL RBC 3.12 10 6/uL HGB 9.9 g/dL HCT 31.4 % MCV 100.6 fL MCH 31.7 pg MCHC 31.5 g/dL RDW 13.5 % Platelet Count 160 10 3/cmm MPV 10.2 fL Neutrophils 4.1 10 3/uL Lymphocytes 1.4 10 3/uL Monocytes 0.7 10 3/uL Eosinophils 0.1 10 3/uL Basophils 0.0 10 3/uL Neutrophil % 64.4 % Lymphocyte % 21.2 % Monocyte % 11.2 % Eosinophil % 2.2 % Basophils % 0.5 % Impression: 1. 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 2. She underwent craniotomy with resection of left frontal lobe metastasis on 04/28/2019. Pathology showed metastatic adenocarcinoma consistent with lung primary. The tumor was negative for ALK and ROS1 rearrangements, and EGFR and BRAF mutations were not detected. The tumor showed positive PD-L1 expression at 10% (membranous positivity). 3. She underwent CyberKnife radiosurgery to the site of brain involvement, completed on 06/04/2019. 4. She then underwent treatment to the primary lesion in the left lung with radiation concurrently with weekly carboplatin/paclitaxel chemotherapy. Radiation was completed on 08/01/2019. She received a total of 6 weekly infusions of chemotherapy. Her other medical illnesses include: 5. Hypertension. 6. Hyperlipidemia. 7. Coronary artery disease with previous myocardial infarction and with triple coronary bypass in 2003. 8. Congestive heart failure. 9. Carotid stenosis with previous right carotid endarterectomy. 10. Peripheral arterial disease with previous aortofemoral bypass and femoropopliteal bypass bilaterally. 11. Renal artery stenosis with previous renal artery stent placement. 12. Chronic kidney disease. 13. Her records indicate a history of clostridium difficile colitis. Overall, she tolerated the chemoradiation pretty well. She appeared to have some response by followup CT scan, though it was not dramatic. Nonetheless, she did meet criteria for maintenance therapy with avelumab. She began cycle 1 on 09/15/2019. She tolerated it well. She has now completed 3 cycles of treatment. She appears stable clinically, though she remains moderately anemic. Plan: She will continue with cycle 4 of avelumab. The dosage remains the same. She will be scheduled for treatment in 2 weeks and for a follow-up visit in 4 weeks. In the meantime, I will check serum iron studies. She will have further evaluation for the anemia as indicated. Signed By: Ray Wade M.D. <<Signature on File>>
[2019-10-27] MEDS: sodium chloride 0.9% 250 ML IV (10:29)
[2019-10-27 10:56] LABS: Iron 53 ug/dL (37-145); Percent Saturation 19.8 % (20-50); Total Iron Binding Capacity 267 mcg/dl; Unsaturated Iron Binding 214 ug/dL (112-347)
== END 2019-11-08 23:59 | disposition home or self-care (01) ==
LOC: ONCMED 05:40
PROVIDERS: Nurse Practitioner; Absent Provider Internal Medicine Medical Oncology; Visit Provider Internal Medicine Medical Oncology
DX: Z51.12 Encounter for antineoplastic immunotherapy (principal); C34.02 Malignant neoplasm of left main bronchus; C79.31 Secondary malignant neoplasm of brain; T82.594A Other mechanical complication of infusion catheter, initial encounter; Y80.1 Therapeutic (nonsurgical) and rehabilitative physical medicine devices associated with adverse incidents; K21.9 Gastro-esophageal reflux disease without esophagitis; I12.9 Hypertensive chronic kidney disease with stage 1 through stage 4 chronic kidney disease, or unspecified chronic kidney disease; N18.9 Chronic kidney disease, unspecified; I50.9 Heart failure, unspecified; I25.10 Atherosclerotic heart disease of native coronary artery without angina pectoris; E78.5 Hyperlipidemia, unspecified; I73.9 Peripheral vascular disease, unspecified; F10.21 Alcohol dependence, in remission; I25.2 Old myocardial infarction; Z79.899 Other long term (current) drug therapy; Z98.890 Other specified postprocedural states; Z92.3 Personal history of irradiation; Z92.21 Personal history of antineoplastic chemotherapy; Z95.5 Presence of coronary angioplasty implant and graft; Z95.1 Presence of aortocoronary bypass graft; Z87.891 Personal history of nicotine dependence
CPT/HCPCS: 36593; 80053; 83540; 83550; 84443; 85025; 96375; 96413; 99214; J2997; J7050; J9173

== ENCOUNTER 2019-12-08 06:32 | Outpatient (RCR) | payer MEDICARE, OTHER, SELFPAY ==
[2019-11-10] MEDS: sodium chloride 0.9% 250 ML 75 ML IV (09:55)
[2019-11-24 09:01] LABS: Basophils # 0.1 10^3/uL (0.0-0.1); Basophils % 0.7 %; Eosinophils # 0.2 10^3/uL (0.0-0.8); Eosinophils % 2.4 %; Hematocrit 36.5 % (37.0-47.0); Hemoglobin 11.5 g/dL (11.5-15.3); Lymphocytes % 22.3 %; Mean Corpuscular HGB Conc 31.5 g/dL (30.0-36.0); Mean Corpuscular Hemoglobin 31.6 pg (28.0-34.0); Mean Corpuscular Volume 100.3 fL (81-99); Mean Platelet Volume 9.7 fL (7.4-10.4); Monocytes % 11.3 %; Neutrophils # 5.5 10^3/uL (1.8-7.7); Nucleated Red Blood Cells % 0 %; Platelet Count 187 10^3/cmm (130-400); Red Blood Count 3.64 10^6/uL (4.1-5.3); Red Cell Distribution Width 12.6 % (12.1-15.1); White Blood Count 8.7 10^3/uL (4.0-10.0)
[2019-11-24 09:28] LABS: Alanine Aminotransferase 10 U/L (0-33); Albumin Level 3.7 g/dL (3.5-5.2); Alkaline Phosphatase 61 IU/L (35-105); Anion Gap 14.9 (5-19); Aspartate Amino Transferase 23 U/L (0-32); Blood Urea Nitrogen 16 mg/dL (8-23); Calcium 9.6 mg/dL (8.5-10.5); Carbon Dioxide 25 mmol/L (22-29); Chloride 102 mmol/L (98-107); Globulin 3.3 g/dL (1.3-4.6); Glucose 85 mg/dL (65-115); Osmolality Calculated 282 mOsm/kg (285-295); Potassium 3.9 mmol/L (3.5-5.1); Sodium 138 mmol/L (136-145); Thyroid Stimulating Hormone 2.24 uIU/mL (0.27-4.20); Total Bilirubin 0.3 mg/dL (0.15-1.2)
--- NOTE | 2019-11-24 11:20 | ONC FU_ITS ---
[facility]send Patient Note Patient: Lola Lozano Unit #: [id number]: 1940 Dictated By: Alvarez RamirezDate of Visit: Nov 24, 2019 Onc MED Follow-Up/Prog Note Chief Complaint: Lung cancer. 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 In April 2019 she was admitted to [facility] in [place] after presenting with confusion and frequent falls. Her brain MRI showed a 2.5 x 3.8 x 2.3 cm left anterior frontal convexity mass with surrounding edema extending into the frontal, temporal, and anterior parietal subcortical and periventricular white matter. Her chest x-ray showed a left hilar mass. Her initial staging CT scans showed an irregularly marginated soft tissue density mass in the left suprahilar region measuring 4.5 cm. There was encasement and obstruction of a segmental branch of the left upper lobe bronchus. There was no evidence of mediastinal mass/adenopathy. A subtle opacity in the upper lobe of the right lung was felt to represent minimal infiltrate versus ill-defined small nodule. There were no other findings of metastatic disease. On 04/28/2019 she underwent left frontal craniotomy with resection of the mass. Pathology showed metastatic adenocarcinoma consistent with lung primary. The tumor was found to be negative for the ALK and ROS1 gene rearrangements. EGFR and BRAF mutations were not detected. PD-L1 expression was positive at 10% (membranous positivity). Her staging PET/CT on 05/23/2019 showed an FDG avid left hilar mass measuring 4.9 x 4.2 cm, SUV 13.84. A 1.3 cm nodular density in the upper lobe of the right lung showed no significant FDG uptake, SUV 0.68, consistent with benign disease. There was mild focal increased metabolic activity in the distal esophagus, maximum SUV 4.76, felt to be consistent with inflammatory changes. There was no evidence of mediastinal or distant metastatic disease. Follow recovery from the surgery she underwent CyberKnife radiosurgery, completed on 06/04/2019. She then underwent radiation concurrently with weekly carboplatin/paclitaxel chemotherapy to the primary lesion in the left lung. She completed her radiation on 08/01/2019. She received her sixth weekly infusion of carboplatin/paclitaxel on 07/30/2018. Overall, she tolerated the treatment well. I had seen her initially on 08/05/2019. At that point she was still having some difficulty with swallowing and eating following the chemoradiation. She was having daily epistaxis, and she also was having significant diarrhea. She was treated empirically with Levaquin and acyclovir. Her stool was tested and was negative for C. difficile. Restaging CT of the chest on 08/12/2019 showed persistent left hilar region mass or lymphadenopathy measuring 4.8 right 3.6 x 2.6 cm. It appeared to have decreased slightly compared to the pretreatment PET/CT. There was persistent groundglass density in the posterior segment right upper lobe and there are small bilateral pleural effusions. There was no evidence of metastatic disease. With those findings, she was eligible for maintenance therapy with durvalumab. She began cycle 1 on 09/15/2019. She tolerated well, and she was able to continue with cycle 2 on 09/29/2019 and with cycle 3 on 10/13/2019. She has tolerated it well. Ms. Lozano is here today for follow-up. She is due for cycle 6 Imfinzi. She states overall she is doing well. She denies any fever or chills. She is had no mouth sores, sore throat or difficulty swallowing. She denies any shortness of breath orthopnea. She denies any chest pain palpitations or cough. She states her appetite is good and her energy is good. She denies any diarrhea or constipation. She states she did have diarrhea just a stop that bladder medicine and now the diarrhea is gone . She denies any urinary frequency or hesitancy. She denies any new pain. She states she has not had any lower extremity edema. Her ECOG is 1. Past Medical History: Carotid stenosis Chronic kidney disease Clostridium difficile colitis Congestive heart failure Coronary artery disease Hyperlipidemia Hypertension Peripheral arterial disease Renal artery stenosis Past Surgical History: Coronary angioplasty/stent placement Femoropopliteal bypass bilaterally ORIF for left ankle fracture ORIF for left foot fracture Right Right carotid endarterectomy Benign Tumor removal (back of head) in 2019 Right internal juglar venous access device-[facility] in 2018 Craniotomy with resection of left frontal lobe brain mass in 2018 Aortofemoral bypass in 2004 Renal artery stent placement in 2003 Triple-vessel coronary artery bypass in 2003 Allergies: No Known Allergies. Medications: Atorvastatin Calcium 1 Tablet (of 80 mg) Oral daily Bystolic 1 Tablet (of 5 mg) Oral daily Captopril 1 Tablet (of 25 mg) Oral b.i.d. Felodipine ER 1 Tablet (of 5 mg) Tablet SR 24 HR Oral daily Ondansetron HCl 1 Tablet (of 4 mg) Oral b.i.d. Prochlorperazine Maleate 1 Tablet (of 10 mg) Oral b.i.d. Family History: Ms. Lozano's mother at age 60: bone cancer, and diabetes. Ms. Lozano's father at age 72: old age. Ms. Lozano has 1 brother who is : bone cancer. She has 2 sisters: 2 alive. Father at age 72, reportedly of old age. Mother at age 60 with advanced malignancy. She also had diabetes. Primary site unknown to the patient. A brother at age 74, bone cancer. Two sisters are still living. One is known to have a cerebral aneurysm. Social History: Ms. Lozano is and she is retired. Ms. Lozano quit smoking less than one year ago but had smoked 0.5 packs/day for 60 years. She quit drinking 15 years ago. She has a history of smoking beginning at age 17, but reportedly no more than 6 cigarettes per day. She quit smoking in May 2019. She also had a long history of alcohol use, at times heavy. She quit drinking in 2003. Review Of Symptoms: Constitutional Denies fevers, chills, night sweats, excessive fatigue or weight loss. Eating good. Feels good. Allergic/Immunologic No reactions. Eyes Denies significant visual changes. No diplopia. No amaurosis. ENMT Denies changes in hearing, sore throat, mouth sores, difficulty or changes in swallowing ability, and/or sinus drainage. Endocrine No diabetes, thyroid disease or hormone replacement. Denies hot flashes or night sweats. Hematologic/Lymphatic Denies easy bruising or bleeding. The patient denies any tender or palpable lymph nodes. Respiratory Denies dyspnea on exertion, chest pain, cough or hemoptysis. Denies orthopnea. Cardiovascular Denies anginal chest pain, palpitations or orthopnea. Gastrointestinal Denies nausea, vomiting, diarrhea, GI bleeding, or constipation. Denies change in bowel habits and/or stool color, no heartburn or early satiety. Genitourinary (F) No hematuria, hesitancy, incontinence, vaginal bleeding, discharge or other problems with urination. Musculoskeletal Denies joint pain, swelling or redness. No decreased range of motion. Integumentary Denies chronic rashes, inflammation, ulcerations or skin changes. Neurologic Denies headache, blurred vision, and no areas of focal weakness or numbness. Normal gait. No sensory problems. Psychiatric Denies insomnia, depression, bebe or mood swings. Vital Signs: Performed on Nov 24, 2019 10:17 Height - 60.00 in Weight - 120.2 lbs (LOW) BSA - 1.50 sq.m BMI - 23.48 Temperature - 98.9 F (HIGH) Pulse - 60 /min Respiration - 12 /min BP - 165/80 mm(hg) (HIGH) O2 Sat - 98 % Pain - 0 Fatigue - 2,1 - No physically strenuous activity, but ambulatory and able to carry out light or sedentary work (e.g. office work, light house work). (ECOG) Physical Examination: Constitutional Alert, oriented, no acute distress. Skin pink, warm and dry. Head Normocephalic; atraumatic. Eyes Conjunctivae and sclerae are clear and without icterus. Pupils are reactive and equal. ENMT No oral exudates, ulcers, masses, thrush or mucositis. Oropharynx clear. Tongue normal. (white appearing exudate on tongue but she states she ate a mint just before her visit). Neck Supple without masses or thyromegaly. No jugular venous distension. Hematologic/Lymphatic No petechiae or purpura. No tender or palpable lymph nodes in the cervical or supraclavicular areas. Respiratory Lungs are clear to auscultation without rhonchi or wheezing. Cardiovascular Regular rate and rhythm of heart without murmurs,clicks, gallops or rubs. Chest Right chest wall venous access device placement site is unremarkable. Abdomen Non-tender, non-distended, no masses or ascites. Good bowel sounds noted in all quads. No guarding or rebound tenderness. No pulsatile masses. Back/Spine Non-tender to palpation. Extremities No visible deformities, no cyanosis, clubbing or edema. Musculoskeletal No tenderness or swelling, normal range of motion without obvious weakness. Integumentary No rashes or lesions. Neurologic No sensory or motor deficits, normal cerebellar function, normal gait. Psychiatric Alert and oriented times three. Coherent speech. Verbalizes understanding of our discussions today. Laboratory:Test performed on Nov 24, 2019 08:30 Sodium 138 mmol/L TSH 2.24 uIU/mL Potassium 3.9 mmol/L Chloride 102 mmol/L CO2 25 mmol/L Anion Gap 14.9 BUN 16 mg/dL Creatinine 0.9 mg/dL Cr Clearance (Est) 47.4600 mL/min Glucose 85 mg/dL Calcium 9.6 mg/dL Protein, Total 7.0 g/dL Albumin 3.7 g/dL Globulin 3.3 g/dL Bilirubin, Total 0.3 mg/dL ALT (SGPT) 10 U/L AST (SGOT) 23 U/L Alkaline Phosphatase 61 IU/L WBC 8.7 10 3/uL RBC 3.64 10 6/uL HGB 11.5 g/dL HCT 36.5 % MCV 100.3 fL MCH 31.6 pg MCHC 31.5 g/dL RDW 12.6 % Platelet Count 187 10 3/cmm MPV 9.7 fL Neutrophils 5.5 10 3/uL Lymphocytes 2.0 10 3/uL Monocytes 1.0 10 3/uL Eosinophils 0.2 10 3/uL Basophils 0.1 10 3/uL Neutrophil % 63.0 % Lymphocyte % 22.3 % Monocyte % 11.3 % Eosinophil % 2.4 % Basophils % 0.7 % Impression: 1. 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 2. She underwent craniotomy with resection of left frontal lobe metastasis on 04/28/2019. Pathology showed metastatic adenocarcinoma consistent with lung primary. The tumor was negative for ALK and ROS1 rearrangements, and EGFR and BRAF mutations were not detected. The tumor showed positive PD-L1 expression at 10% (membranous positivity). 3. She underwent CyberKnife radiosurgery to the site of brain involvement, completed on 06/04/2019. 4. She then underwent treatment to the primary lesion in the left lung with radiation concurrently with weekly carboplatin/paclitaxel chemotherapy. Radiation was completed on 08/01/2019. She received a total of 6 weekly infusions of chemotherapy. Her other medical illnesses include: 5. Hypertension. 6. Hyperlipidemia. 7. Coronary artery disease with previous myocardial infarction and with triple coronary bypass in 2003. 8. Congestive heart failure. 9. Carotid stenosis with previous right carotid endarterectomy. 10. Peripheral arterial disease with previous aortofemoral bypass and femoropopliteal bypass bilaterally. 11. Renal artery stenosis with previous renal artery stent placement. 12. Chronic kidney disease. 13. Her records indicate a history of clostridium difficile colitis. Overall, she tolerated the chemoradiation pretty well. She appeared to have some response by followup CT scan, though it was not dramatic. Nonetheless, she did meet criteria for maintenance therapy with avelumab. She began cycle 1 on 09/15/2019. She tolerated it well. Overall, she has continued to show gradual improvement in her performance status since completing the chemoradiation. She has now completed 5 cycles and is tolerating treatment well. She continues to have improvement in her performance status. Plan: 1. Proceed with cycle 6 durvalumab. Her dose remains the same. 2. Continue Protonix daily for GERD symptoms as they have dramatically improved. 3. Today's labs reviewed in detail and discussed with Ms. Lozano and a copy was given to her. WBC 8.7, hemoglobin 11.5, platelets 187,000 ANC is 5500. Potassium 3.9 random glucose 85 creatinine is 0.9 and LFTs are normal. TSH is stable at 2.24. 4. We will plan to see her back in 4 weeks with CBC, CMP and TSH for immunotherapy monitoring but she will continue treatment every 2 weeks. She will be due for cycle 8 durvalumab at that time. 5. Mrs. Lozano was instructed to contact us in the interim should questions or problems arise. Signed By: Emely Ramirez.-, AOP Ray Wade MD <<Signature on File>>
== END 2019-12-09 23:59 | disposition home or self-care (01) ==
LOC: ONCMED 06:32
PROVIDERS: Nurse Practitioner; Absent Provider Internal Medicine Medical Oncology; Visit Provider Internal Medicine Medical Oncology
DX: Z51.12 Encounter for antineoplastic immunotherapy (principal); C34.02 Malignant neoplasm of left main bronchus; C79.31 Secondary malignant neoplasm of brain; I13.0 Hypertensive heart and chronic kidney disease with heart failure and stage 1 through stage 4 chronic kidney disease, or unspecified chronic kidney disease; N18.9 Chronic kidney disease, unspecified; I50.9 Heart failure, unspecified; I25.10 Atherosclerotic heart disease of native coronary artery without angina pectoris; E78.5 Hyperlipidemia, unspecified; I73.9 Peripheral vascular disease, unspecified; K21.9 Gastro-esophageal reflux disease without esophagitis; F10.21 Alcohol dependence, in remission; Z79.899 Other long term (current) drug therapy; Z92.3 Personal history of irradiation; Z95.5 Presence of coronary angioplasty implant and graft; Z95.1 Presence of aortocoronary bypass graft; Z87.891 Personal history of nicotine dependence; Z92.21 Personal history of antineoplastic chemotherapy; Z98.890 Other specified postprocedural states
CPT/HCPCS: 80053; 84443; 85025; 96413; 99214; J7050; J9173

== ENCOUNTER 2020-01-05 06:44 | Outpatient (RCR) | payer MEDICARE, OTHER, SELFPAY ==
[2019-12-22 11:34] LABS: Basophils # 0.1 10^3/uL (0.0-0.1); Basophils % 0.6 %; Eosinophils # 0.2 10^3/uL (0.0-0.8); Eosinophils % 1.7 %; Hematocrit 34.4 % (37.0-47.0); Hemoglobin 10.8 g/dL (11.5-15.3); Lymphocytes # 1.9 10^3/uL (0.8-4.8); Lymphocytes % 21.7 %; Mean Corpuscular HGB Conc 31.4 g/dL (30.0-36.0); Mean Corpuscular Hemoglobin 30.5 pg (28.0-34.0); Mean Corpuscular Volume 97.2 fL (81-99); Mean Platelet Volume 9.4 fL (7.4-10.4); Monocytes # 1.1 10^3/uL (0.2-0.9); Monocytes % 12.3 %; Neutrophils # 5.6 10^3/uL (1.8-7.7); Neutrophils % 63.5 %; Nucleated Red Blood Cells % 0 %; Platelet Count 169 10^3/cmm (130-400); Red Blood Count 3.54 10^6/uL (4.1-5.3); Red Cell Distribution Width 13.3 % (12.1-15.1); White Blood Count 8.8 10^3/uL (4.0-10.0)
[2019-12-22 11:58] LABS: Alanine Aminotransferase 7 U/L (0-33); Albumin Level 3.7 g/dL (3.5-5.2); Alkaline Phosphatase 63 IU/L (35-105); Anion Gap 13.2 (5-19); Aspartate Amino Transferase 24 U/L (0-32); Blood Urea Nitrogen 14 mg/dL (8-23); Calcium 9.4 mg/dL (8.5-10.5); Carbon Dioxide 25 mmol/L (22-29); Chloride 103 mmol/L (98-107); Globulin 3.2 g/dL (1.3-4.6); Glucose 110 mg/dL (65-115); Magnesium 1.9 mg/dL (1.7-2.3); Osmolality Calculated 281 mOsm/kg (285-295); Potassium 4.2 mmol/L (3.5-5.1); Sodium 137 mmol/L (136-145); Thyroid Stimulating Hormone 2.72 uIU/mL (0.27-4.20); Total Bilirubin 0.5 mg/dL (0.15-1.2); Total Protein 6.9 g/dL (6.6-8.7)
--- NOTE | 2019-12-22 18:29 | ONC FU_ITS ---
Dr. Wade Patient Follow-Up Note Patient: Lola Lozano Unit #: [id number]: [id number] Dicatated By: Ray Wade M.D.Date of Visit:Dec 22, 2019 Onc Med Follow-up/Prog Note Chief Complaint: Lung cancer. 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 In April 2019 she was admitted to [facility] in [place] after presenting with confusion and frequent falls. Her brain MRI showed a 2.5 x 3.8 x 2.3 cm left anterior frontal convexity mass with surrounding edema extending into the frontal, temporal, and anterior parietal subcortical and periventricular white matter. Her chest x-ray showed a left hilar mass. Her initial staging CT scans showed an irregularly marginated soft tissue density mass in the left suprahilar region measuring 4.5 cm. There was encasement and obstruction of a segmental branch of the left upper lobe bronchus. There was no evidence of mediastinal mass/adenopathy. A subtle opacity in the upper lobe of the right lung was felt to represent minimal infiltrate versus ill-defined small nodule. There were no other findings of metastatic disease. On 04/28/2019 she underwent left frontal craniotomy with resection of the mass. Pathology showed metastatic adenocarcinoma consistent with lung primary. The tumor was found to be negative for the ALK and ROS1 gene rearrangements. EGFR and BRAF mutations were not detected. PD-L1 expression was positive at 10% (membranous positivity). Her staging PET/CT on 05/23/2019 showed an FDG avid left hilar mass measuring 4.9 x 4.2 cm, SUV 13.84. A 1.3 cm nodular density in the upper lobe of the right lung showed no significant FDG uptake, SUV 0.68, consistent with benign disease. There was mild focal increased metabolic activity in the distal esophagus, maximum SUV 4.76, felt to be consistent with inflammatory changes. There was no evidence of mediastinal or distant metastatic disease. Follow recovery from the surgery she underwent CyberKnife radiosurgery, completed on 06/04/2019. She then underwent radiation concurrently with weekly carboplatin/paclitaxel chemotherapy to the primary lesion in the left lung. She completed her radiation on 08/01/2019. She received her sixth weekly infusion of carboplatin/paclitaxel on 07/30/2018. Overall, she tolerated the treatment well. I had seen her initially on 08/05/2019. At that point she was still having some difficulty with swallowing and eating following the chemoradiation. She was having daily epistaxis, and she also was having significant diarrhea. She was treated empirically with Levaquin and acyclovir. Her stool was tested and was negative for C. difficile. Restaging CT of the chest on 08/12/2019 showed persistent left hilar region mass or lymphadenopathy measuring 4.8 right 3.6 x 2.6 cm. It appeared to have decreased slightly compared to the pretreatment PET/CT. There was persistent groundglass density in the posterior segment right upper lobe and there are small bilateral pleural effusions. There was no evidence of metastatic disease. With those findings, she was eligible for maintenance therapy with durvalumab. She began cycle 1 on 09/15/2019. She tolerated it well, and she the continued treatment at 2-week intervals. As of 12/08/2019 she received cycle 7 of durvalumab. During that time, she had been mildly anemic. Her serum iron studies showed low transferrin saturation 19.8%, suggestive of possible iron deficiency. She began on oral iron supplementation. In the meantime, a repeat brain MRI on 10/29/2019 showed a new metastatic lesion in the right occipital lobe measuring 11 mm. There was surrounding vasogenic edema. There was no evidence of recurrent tumor at the left frontal lobe resection site. She has seen the radiation oncologist at [facility], and she is scheduled to undergo CyberKnife radiosurgery. She is seen for a scheduled visit. She has been feeling good generally. She has good energy and activity tolerance. ECOG score is 0. Her appetite is good. She has not had fever. She has had night sweating, but not very much. She did have to stop her oral iron supplement because it made her sick. She has just a little bit of cough occasionally. She does not complain of shortness of breath or chest pain. She has otherwise not had nausea. She has just very occasional diarrhea. She has no complaints. She has some joint pain, mainly just in the right hand. She does not complain of headache. She sometimes has dizziness, but not often. She has no focal neurologic symptoms. Medications: Atorvastatin Calcium 1 Tablet (of 80 mg) Oral daily, Bystolic 1 Tablet (of 5 mg) Oral daily, Captopril 1 Tablet (of 25 mg) Oral b.i.d., Felodipine ER 1 Tablet (of 5 mg) Tablet SR 24 HR Oral daily, Ondansetron HCl 1 Tablet (of 4 mg) Oral b.i.d., Prochlorperazine Maleate 1 Tablet (of 10 mg) Oral b.i.d., Protonix 1 Tablet (of 40 mg) Tablet, enteric coated Oral daily Allergies: No Known Allergies. Review of Systems: Constitutional - Her energy level is good. She is able to do normal activities. Her appetite is good and weight is up about 8 pounds. No fever or chills. She has occasional night sweats but they are significantly improved. ECOG score is 0, ENMT - She has sinus congestion/drainage. No mouth sores. No sore throat or difficulty swallowing, Hematologic/Lymphatic - She bruises easily, Respiratory - No shortness of breath. She has a slight cough. No pleuritic pain or hemoptysis, Cardiovascular - No angina pain. No palpitations, Gastrointestinal - No nausea or vomiting. Her heartburn is well managed with Protonix. No diarrhea or constipation. No blood in the stool or black stools, Genitourinary (F) - No dysuria or hematuria. No urinary frequency. No urgency or incontinence, Musculoskeletal - No joint or bone pain, Integumentary - No skin complications, Neurologic - No headache. She has occasional dizziness. No numbness/paresthesias or other focal neurologic symptoms, Psychiatric - No anxiety or depression. No insomnia. Vital Signs: Performed on Dec 22, 2019 13:23 Height - 60.00 in Weight - 128.4 lbs (HIGH) BSA - 1.55 sq.m BMI - 25.08 Temperature - 99.1 F (HIGH) Pulse - 64 /min Respiration - 18 /min BP - 131/54 mm(hg) O2 Sat - 98 % Pain - 0 Physical Examination: Constitutional - She looks good generally, Eyes - Sclerae nonicteric. Conjunctivae clear, ENMT - No lesions noted in the oral cavity, Hematologic/Lymphatic - No cervical, clavicular, or axillary adenopathy, Respiratory - Lungs sound clear, Cardiovascular - Heart rhythm is regular. There is no murmur, gallop, or rub noted, Abdomen - Soft. Liver and spleen are not enlarged. There is no abdominal mass or ascites noted and there is no inguinal adenopathy, Extremities - Mild swelling at the left ankle, Neurologic - No focal neurologic deficits noted. Lab/Imaging: Test performed on Dec 22, 2019 11:23 Magnesium 1.9 mg/dL Sodium 137 mmol/L TSH 2.72 uIU/mL Potassium 4.2 mmol/L Chloride 103 mmol/L CO2 25 mmol/L Anion Gap 13.2 BUN 14 mg/dL Creatinine 0.9 mg/dL Cr Clearance (Est) 47.4600 mL/min Glucose 110 mg/dL Calcium 9.4 mg/dL Protein, Total 6.9 g/dL Albumin 3.7 g/dL Globulin 3.2 g/dL Bilirubin, Total 0.5 mg/dL ALT (SGPT) 7 U/L AST (SGOT) 24 U/L Alkaline Phosphatase 63 IU/L WBC 8.8 10 3/uL RBC 3.54 10 6/uL HGB 10.8 g/dL HCT 34.4 % MCV 97.2 fL MCH 30.5 pg MCHC 31.4 g/dL RDW 13.3 % Platelet Count 169 10 3/cmm MPV 9.4 fL Neutrophils 5.6 10 3/uL Lymphocytes 1.9 10 3/uL Monocytes 1.1 10 3/uL Eosinophils 0.2 10 3/uL Basophils 0.1 10 3/uL Neutrophil % 63.5 % Lymphocyte % 21.7 % Monocyte % 12.3 % Eosinophil % 1.7 % Basophils % 0.6 % Impression: 1. 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 2. She underwent craniotomy with resection of left frontal lobe metastasis on 04/28/2019. Pathology showed metastatic adenocarcinoma consistent with lung primary. The tumor was negative for ALK and ROS1 rearrangements, and EGFR and BRAF mutations were not detected. The tumor showed positive PD-L1 expression at 10% (membranous positivity). 3. She underwent CyberKnife radiosurgery to the site of brain involvement, completed on 06/04/2019. 4. She then underwent treatment to the primary lesion in the left lung with radiation concurrently with weekly carboplatin/paclitaxel chemotherapy. Radiation was completed on 08/01/2019. She received a total of 6 weekly infusions of chemotherapy. Her other medical illnesses include: 5. Hypertension. 6. Hyperlipidemia. 7. Coronary artery disease with previous myocardial infarction and with triple coronary bypass in 2003. 8. Congestive heart failure. 9. Carotid stenosis with previous right carotid endarterectomy. 10. Peripheral arterial disease with previous aortofemoral bypass and femoropopliteal bypass bilaterally. 11. Renal artery stenosis with previous renal artery stent placement. 12. Chronic kidney disease. 13. Her records indicate a history of clostridium difficile colitis. Overall, she tolerated the chemoradiation pretty well. She appeared to have some response by followup CT scan, though it was not dramatic. Nonetheless, she did meet criteria for maintenance therapy with avelumab. She began cycle 1 on 09/15/2019. She tolerated it well. She then continued treatment at 2-week intervals. During that time she remained mildly anemic. Her serum iron studies were suggestive of iron deficiency. She was not able to tolerate an oral iron supplement. A repeat brain MRI on 10/29/2019 showed a new metastatic lesion in the right occipital lobe measuring 11 mm. There was surrounding vasogenic edema. There was no evidence of recurrent tumor at the left frontal lobe resection site. She has seen the radiation oncologist at [facility], and she was scheduled to undergo CyberKnife radiosurgery. Overall she has been doing well clinically. She continues to show gradual improvement in her performance status. Thus far there has been no other progression of the lung cancer, though she has not had any other followup imaging since the CT scan in August. Plan: She will continue with cycle 8 of avelumab. The dosage remains the same. She will be scheduled for treatment in 2 weeks and for a follow-up visit in 4 weeks. I will tentatively plan to repeat her CT scans in February. Signed By: Ray Wade M.D. <<Signature on File>>
== END 2020-01-08 23:59 | disposition home or self-care (01) ==
LOC: ONCMED 06:44
PROVIDERS: Visit Provider Internal Medicine Medical Oncology
DX: Z51.12 Encounter for antineoplastic immunotherapy (principal); C34.02 Malignant neoplasm of left main bronchus; C79.31 Secondary malignant neoplasm of brain; Z51.81 Encounter for therapeutic drug level monitoring; Z79.899 Other long term (current) drug therapy; I25.10 Atherosclerotic heart disease of native coronary artery without angina pectoris; I11.0 Hypertensive heart disease with heart failure; I50.9 Heart failure, unspecified; I25.2 Old myocardial infarction; I65.29 Occlusion and stenosis of unspecified carotid artery; I13.0 Hypertensive heart and chronic kidney disease with heart failure and stage 1 through stage 4 chronic kidney disease, or unspecified chronic kidney disease; N18.9 Chronic kidney disease, unspecified; E78.5 Hyperlipidemia, unspecified; I73.9 Peripheral vascular disease, unspecified; Z95.5 Presence of coronary angioplasty implant and graft; Z95.1 Presence of aortocoronary bypass graft
CPT/HCPCS: 80053; 83735; 84443; 85025; 96413; 99214; J7050; J9173

== ENCOUNTER 2020-02-03 06:49 | Outpatient (RCR) | payer MEDICARE, OTHER, SELFPAY ==
[2020-01-19 09:34] LABS: Basophils # 0.1 10^3/uL (0.0-0.1); Basophils % 0.7 %; Eosinophils # 0.2 10^3/uL (0.0-0.8); Eosinophils % 2.9 %; Hemoglobin 11.5 g/dL (11.5-15.3); Lymphocytes # 1.9 10^3/uL (0.8-4.8); Lymphocytes % 24.9 %; Mean Corpuscular HGB Conc 31.9 g/dL (30.0-36.0); Mean Corpuscular Hemoglobin 31.1 pg (28.0-34.0); Mean Corpuscular Volume 97.3 fL (81-99); Mean Platelet Volume 9.6 fL (7.4-10.4); Monocytes % 12.8 %; Neutrophils # 4.4 10^3/uL (1.8-7.7); Neutrophils % 58.3 %; Nucleated Red Blood Cells % 0 %; Platelet Count 182 10^3/cmm (130-400); Red Cell Distribution Width 14.1 % (12.1-15.1); White Blood Count 7.5 10^3/uL (4.0-10.0)
[2020-01-19 10:06] LABS: Alanine Aminotransferase 12 U/L (0-33); Albumin Level 3.8 g/dL (3.5-5.2); Alkaline Phosphatase 76 IU/L (35-105); Aspartate Amino Transferase 23 U/L (0-32); Blood Urea Nitrogen 26 mg/dL (8-23); Calcium 9.8 mg/dL (8.5-10.5); Carbon Dioxide 24 mmol/L (22-29); Chloride 103 mmol/L (98-107); Globulin 3.8 g/dL (1.3-4.6); Glucose 85 mg/dL (65-115); Iron 60 ug/dL (37-145); Osmolality Calculated 280 mOsm/kg (285-295); Percent Saturation 18.6 % (20-50); Sodium 137 mmol/L (136-145); Thyroid Stimulating Hormone 2.66 uIU/mL (0.27-4.20); Total Bilirubin 0.3 mg/dL (0.15-1.2); Total Iron Binding Capacity 322 mcg/dl; Total Protein 7.6 g/dL (6.6-8.7); Unsaturated Iron Binding 262 ug/dL (112-347)
[2020-01-19] MEDS: sodium chloride 0.9% 250 ML 75 ML IV (11:35)
--- NOTE | 2020-01-19 15:01 | ONC FU_ITS ---
Dr. Wade Patient Follow-Up Note Patient: Lola Lozano Unit #: [id number]: 1940 Dicatated By: Ray Wade M.D.Date of Visit:January 19, 2020 Onc Med Follow-up/Prog Note Chief Complaint: Lung cancer. 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 In April 2019 she was admitted to [facility] in [place] after presenting with confusion and frequent falls. Her brain MRI showed a 2.5 x 3.8 x 2.3 cm left anterior frontal convexity mass with surrounding edema extending into the frontal, temporal, and anterior parietal subcortical and periventricular white matter. Her chest x-ray showed a left hilar mass. Her initial staging CT scans showed an irregularly marginated soft tissue density mass in the left suprahilar region measuring 4.5 cm. There was encasement and obstruction of a segmental branch of the left upper lobe bronchus. There was no evidence of mediastinal mass/adenopathy. A subtle opacity in the upper lobe of the right lung was felt to represent minimal infiltrate versus ill-defined small nodule. There were no other findings of metastatic disease. On 04/28/2019 she underwent left frontal craniotomy with resection of the mass. Pathology showed metastatic adenocarcinoma consistent with lung primary. The tumor was found to be negative for the ALK and ROS1 gene rearrangements. EGFR and BRAF mutations were not detected. PD-L1 expression was positive at 10% (membranous positivity). Her staging PET/CT on 05/23/2019 showed an FDG avid left hilar mass measuring 4.9 x 4.2 cm, SUV 13.84. A 1.3 cm nodular density in the upper lobe of the right lung showed no significant FDG uptake, SUV 0.68, consistent with benign disease. There was mild focal increased metabolic activity in the distal esophagus, maximum SUV 4.76, felt to be consistent with inflammatory changes. There was no evidence of mediastinal or distant metastatic disease. Follow recovery from the surgery she underwent CyberKnife radiosurgery, completed on 06/04/2019. She then underwent radiation concurrently with weekly carboplatin/paclitaxel chemotherapy to the primary lesion in the left lung. She completed her radiation on 08/01/2019. She received her sixth weekly infusion of carboplatin/paclitaxel on 07/30/2018. Overall, she tolerated the treatment well. I had seen her initially on 08/05/2019. At that point she was still having some difficulty with swallowing and eating following the chemoradiation. She was having daily epistaxis, and she also was having significant diarrhea. She was treated empirically with Levaquin and acyclovir. Her stool was tested and was negative for C. difficile. Restaging CT of the chest on 08/12/2019 showed persistent left hilar region mass or lymphadenopathy measuring 4.8 right 3.6 x 2.6 cm. It appeared to have decreased slightly compared to the pretreatment PET/CT. There was persistent groundglass density in the posterior segment right upper lobe and there are small bilateral pleural effusions. There was no evidence of metastatic disease. With those findings, she was eligible for maintenance therapy with durvalumab. She began cycle 1 on 09/15/2019. She tolerated it well, and she the continued treatment at 2-week intervals. As of 12/08/2019 she received cycle 7 of durvalumab. During that time, she had been mildly anemic. Her serum iron studies showed low transferrin saturation 19.8%, suggestive of possible iron deficiency. She began on oral iron supplementation. In the meantime, a repeat brain MRI on 10/29/2019 showed a new metastatic lesion in the right occipital lobe measuring 11 mm. There was surrounding vasogenic edema. There was no evidence of recurrent tumor at the left frontal lobe resection site. She was seen the radiation oncologist at [facility], and she ws scheduled to undergo CyberKnife radiosurgery. In the meantime, she has continued her durvalumab infusions every 2 weeks. She is seen for a scheduled visit. She has been feeling good generally. She has now completed 9 cycles of durvalumab. She has continued to tolerate it well. She says she feels fine. Her ECOG score is 1. She has pretty good appetite. She has no fever or night sweats. She has some mild exertional dyspnea, but overall she feels that her breathing is fine. She does not have resting dyspnea or cough. She does not complain of chest pain. She has no GI complaints other than her stools are occasionally runny. She has some urinary frequency and nocturia, and she has some associated urgency. She has no significant joint or bone pain. She does not complain of headache. She has just occasional dizziness. She has no focal neurologic symptoms. She says her nerves are sometimes pretty rugged. Medications: Atorvastatin Calcium 1 Tablet (of 80 mg) Oral daily, Bystolic 1 Tablet (of 5 mg) Oral daily, Captopril 1 Tablet (of 25 mg) Oral b.i.d., Felodipine ER 1 Tablet (of 5 mg) Tablet SR 24 HR Oral daily, Ondansetron HCl 1 Tablet (of 4 mg) Oral b.i.d., Prochlorperazine Maleate 1 Tablet (of 10 mg) Oral b.i.d., Protonix 1 Tablet (of 40 mg) Tablet, enteric coated Oral daily Allergies: No Known Allergies. Review of Systems: Constitutional - She generally feels good. Her appetite is good and weight is stable. No fever, chills, hot flashes, or night sweats. ECOG score is 1, ENMT - Her sinus congestion/drainage is improved. No mouth sores. No sore throat or difficulty swallowing, Hematologic/Lymphatic - She bruises easily, Respiratory - She has shortness of breath with activity. No cough. No pleuritic pain or hemoptysis, Cardiovascular - No angina pain. No palpitations, Gastrointestinal - No nausea or vomiting. Her heartburn is well managed with Protonix. No diarrhea or constipation. No blood in the stool or black stools, Genitourinary (F) - No dysuria or hematuria. She has urinary frequency at night. No urgency or incontinence, Musculoskeletal - No joint or bone pain, Integumentary - No skin complications, Neurologic - No headache. She has occasional dizziness. No numbness/paresthesias or other focal neurologic symptoms, Psychiatric - No anxiety or depression. No insomnia. Vital Signs: Performed on January 19, 2020 10:50 Height - 60.00 in Weight - 127.4 lbs (LOW) BSA - 1.54 sq.m BMI - 24.88 Temperature - 97.5 F (LOW) Pulse - 61 /min Respiration - 16 /min BP - 135/62 mm(hg) O2 Sat - 97 % Pain - 0 Physical Examination: Constitutional - She looks good generally, Eyes - Sclerae nonicteric. Conjunctivae clear, ENMT - No lesions noted in the oral cavity, Hematologic/Lymphatic - No cervical, clavicular, or axillary adenopathy, Respiratory - Lungs sound clear, Cardiovascular - Heart rhythm is regular. There is a II/ systolic murmur. There is no gallop or rub noted, Abdomen - Soft. Liver and spleen are not enlarged. There is no abdominal mass or ascites noted and there is no inguinal adenopathy, Extremities - No edema, Neurologic - No focal neurologic deficits noted. Lab/Imaging: Test performed on January 19, 2020 09:10 Iron 60 mcg/dL Sodium 137 mmol/L TSH 2.66 uIU/mL Iron Binding Capacity (TIBC) 322 mcg/dl Potassium 4.0 mmol/L % Iron Saturation 18.6 % Chloride 103 mmol/L CO2 24 mmol/L UIBC 262 mcg/dL Anion Gap 14.0 BUN 26 mg/dL Creatinine 1.0 mg/dL Cr Clearance (Est) 42.0300 mL/min Glucose 85 mg/dL Calcium 9.8 mg/dL Protein, Total 7.6 g/dL Albumin 3.8 g/dL Globulin 3.8 g/dL Bilirubin, Total 0.3 mg/dL ALT (SGPT) 12 U/L AST (SGOT) 23 U/L Alkaline Phosphatase 76 IU/L WBC 7.5 10 3/uL RBC 3.70 10 6/uL HGB 11.5 g/dL HCT 36.0 % MCV 97.3 fL MCH 31.1 pg MCHC 31.9 g/dL RDW 14.1 % Platelet Count 182 10 3/cmm MPV 9.6 fL Neutrophils 4.4 10 3/uL Lymphocytes 1.9 10 3/uL Monocytes 1.0 10 3/uL Eosinophils 0.2 10 3/uL Basophils 0.1 10 3/uL Neutrophil % 58.3 % Lymphocyte % 24.9 % Monocyte % 12.8 % Eosinophil % 2.9 % Basophils % 0.7 % Impression: 1. 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 2. She underwent craniotomy with resection of left frontal lobe metastasis on 04/28/2019. Pathology showed metastatic adenocarcinoma consistent with lung primary. The tumor was negative for ALK and ROS1 rearrangements, and EGFR and BRAF mutations were not detected. The tumor showed positive PD-L1 expression at 10% (membranous positivity). 3. She underwent CyberKnife radiosurgery to the site of brain involvement, completed on 06/04/2019. 4. She then underwent treatment to the primary lesion in the left lung with radiation concurrently with weekly carboplatin/paclitaxel chemotherapy. Radiation was completed on 08/01/2019. She received a total of 6 weekly infusions of chemotherapy. Her other medical illnesses include: 5. Hypertension. 6. Hyperlipidemia. 7. Coronary artery disease with previous myocardial infarction and with triple coronary bypass in 2003. 8. Congestive heart failure. 9. Carotid stenosis with previous right carotid endarterectomy. 10. Peripheral arterial disease with previous aortofemoral bypass and femoropopliteal bypass bilaterally. 11. Renal artery stenosis with previous renal artery stent placement. 12. Chronic kidney disease. 13. Her records indicate a history of clostridium difficile colitis. Overall, she tolerated the chemoradiation pretty well. She appeared to have some response by followup CT scan, though it was not dramatic. Nonetheless, she did meet criteria for maintenance therapy with avelumab. She began cycle 1 on 09/15/2019. She tolerated it well. She then continued treatment at 2-week intervals. During that time she remained mildly anemic. Her serum iron studies were suggestive of iron deficiency. She was not able to tolerate an oral iron supplement. A repeat brain MRI on 10/29/2019 showed a new metastatic lesion in the right occipital lobe measuring 11 mm. There was surrounding vasogenic edema. There was no evidence of recurrent tumor at the left frontal lobe resection site. She was seen the radiation oncologist at [facility], and she was scheduled to undergo CyberKnife radiosurgery. During followup she continued to show gradual improvement in her performance status. She has continued her durvalumab infusions every 2 weeks with no adverse effects. Overall, she has been doing well clinically. Plan: She will continue with cycle 10 of avelumab. The dosage remains the same. She will be scheduled for treatment in 2 weeks. She will be scheduled for a follow-up visit with restaging chest CT in 4 weeks. Signed By: Ray Wade M.D. <<Signature on File>>
[2020-02-03] MEDS: sodium chloride 0.9% 250 ML 75 ML IV (08:35)
== END 2020-02-08 23:59 | disposition home or self-care (01) ==
LOC: ONCMED 06:49
PROVIDERS: Visit Provider Internal Medicine Medical Oncology
DX: Z51.12 Encounter for antineoplastic immunotherapy (principal); C34.02 Malignant neoplasm of left main bronchus; C79.31 Secondary malignant neoplasm of brain; I65.23 Occlusion and stenosis of bilateral carotid arteries; N18.9 Chronic kidney disease, unspecified; I50.9 Heart failure, unspecified; I25.10 Atherosclerotic heart disease of native coronary artery without angina pectoris; E78.5 Hyperlipidemia, unspecified; I10 Essential (primary) hypertension; I73.9 Peripheral vascular disease, unspecified; Z86.19 Personal history of other infectious and parasitic diseases; Z79.899 Other long term (current) drug therapy
CPT/HCPCS: 80053; 83540; 83550; 84443; 85025; 96413; 99214; J7050; J9173

== ENCOUNTER 2020-03-01 06:46 | Outpatient (RCR) | payer MEDICARE, OTHER, SELFPAY ==
--- NOTE | 2020-02-12 10:42 | CT_ITS ---
WS: [id number] CT CHEST WITH INTRAVENOUS CONTRAST HISTORY: LUNG CANCER TECHNIQUE: Contiguous 5 mm axial imaging performed on the thorax. Coronal and sagittal reformats are submitted. All CT scans at [facility] use at least one of these dose optimization techniq ues: automated exposure control; mA and/or kV adjustment per patient size (includes targeted exams wh ere dose is matched to clinical indication); or iterative reconstruction. CONTRAST: Visipaque 320; 95 mL IV. DLP: 351.09 mGy.cm COMPARISON: 08/12/2019 Lungs and central airway: Severe chronic emphysema. Significant improvement in the LEFT hilar mass si nce 08/12/2019. Mass extends over a length of 2.5 cm and transversely by 2.0 and anterior posterior by 2.6 cm. Mass is inseparable from the LEFT main pulmonary artery. Less narrowing of the upper and low er lobe bronchi. Groundglass attenuation in the RIGHT upper lobe measures 1.5 cm in maximum diameter with no change. There is an additional area of groundglass attenuation in the LEFT upper lobe which i s also unchanged. Mild thickening persists but improved along the superior LEFT major fissure. Pleura: No pleural effusions. Heart and pericardium: Markedly enlarged LEFT heart chambers. No pericardial effusion. Prior CABG. Mediastinum and venkat: No new or increasing mediastinal and hilar lymph nodes. Vessels: Extensive atherosclerosis of aorta with no aneurysm. Pulmonary artery size is top normal and equal to the aorta. Chest wall and lower neck: No soft tissue masses. Upper abdomen: Again noted is severe atrophy of the LEFT kidney. No adrenal mass. Extensive atheroscl erosis within the suprarenal aorta and a small hiatal hernia. Osseous structures: Mild increase in the thoracic kyphosis. CT/CT chest w con* [id number] IMPRESSION: 1. Significant decrease in size of the LEFT hilar mass since 08/12/2019. Mass n ow measures 2.5 x 2.0 x 2.6 cm. This compares to a prior measurement of 3.6 x 2 .6 x 4.8 cm. 2. No new or increasing lymphadenopathy. 3. Stable groundglass areas of attenuation in the upper lobes bilaterally. 4. Severe emphysema and atherosclerosis aorta. 5. LEFT cardiomegaly and prior CABG.
[2020-02-12] MEDS: iodixanol 320 mg/mL 100mL Btl IV (11:08)
[2020-02-16 09:01] LABS: Basophils % 0.4 %; Eosinophils # 0.2 10^3/uL (0.0-0.8); Eosinophils % 3.2 %; Hematocrit 33.4 % (37.0-47.0); Hemoglobin 10.6 g/dL (11.5-15.3); Lymphocytes # 1.8 10^3/uL (0.8-4.8); Lymphocytes % 24.3 %; Mean Corpuscular HGB Conc 31.7 g/dL (30.0-36.0); Mean Corpuscular Hemoglobin 30.7 pg (28.0-34.0); Mean Corpuscular Volume 96.8 fL (81-99); Mean Platelet Volume 9.6 fL (7.4-10.4); Monocytes % 13.7 %; Neutrophils # 4.4 10^3/uL (1.8-7.7); Neutrophils % 58.1 %; Nucleated Red Blood Cells % 0 %; Platelet Count 181 10^3/cmm (130-400); Red Blood Count 3.45 10^6/uL (4.1-5.3); Red Cell Distribution Width 14.6 % (12.1-15.1); White Blood Count 7.5 10^3/uL (4.0-10.0)
[2020-02-16 09:15] LABS: Alanine Aminotransferase 9 U/L (0-33); Albumin Level 3.6 g/dL (3.5-5.2); Alkaline Phosphatase 68 IU/L (35-105); Aspartate Amino Transferase 21 U/L (0-32); Blood Urea Nitrogen 20 mg/dL (8-23); Calcium 8.4 mg/dL (8.5-10.5); Carbon Dioxide 22 mmol/L (22-29); Chloride 105 mmol/L (98-107); Globulin 2.9 g/dL (1.3-4.6); Glucose 99 mg/dL (65-115); Osmolality Calculated 281 mOsm/kg (285-295); Sodium 137 mmol/L (136-145); Total Bilirubin 0.3 mg/dL (0.15-1.2); Total Protein 6.5 g/dL (6.6-8.7)
[2020-02-16] MEDS: sodium chloride 0.9% 250 ML 75 ML IV (10:58)
--- NOTE | 2020-02-20 13:32 | ONC FU_ITS ---
Dr. Wade Patient Follow-Up Note Patient: Lola Lozano Unit #: [id number]: 1940 Dicatated By: Ray Wade M.D.Date of Visit:Feb 16, 2020 Onc Med Follow-up/Prog Note Chief Complaint: Lung cancer. 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 In April 2019 she was admitted to [facility] in [place] after presenting with confusion and frequent falls. Her brain MRI showed a 2.5 x 3.8 x 2.3 cm left anterior frontal convexity mass with surrounding edema extending into the frontal, temporal, and anterior parietal subcortical and periventricular white matter. Her chest x-ray showed a left hilar mass. Her initial staging CT scans showed an irregularly marginated soft tissue density mass in the left suprahilar region measuring 4.5 cm. There was encasement and obstruction of a segmental branch of the left upper lobe bronchus. There was no evidence of mediastinal mass/adenopathy. A subtle opacity in the upper lobe of the right lung was felt to represent minimal infiltrate versus ill-defined small nodule. There were no other findings of metastatic disease. On 04/28/2019 she underwent left frontal craniotomy with resection of the mass. Pathology showed metastatic adenocarcinoma consistent with lung primary. The tumor was found to be negative for the ALK and ROS1 gene rearrangements. EGFR and BRAF mutations were not detected. PD-L1 expression was positive at 10% (membranous positivity). Her staging PET/CT on 05/23/2019 showed an FDG avid left hilar mass measuring 4.9 x 4.2 cm, SUV 13.84. A 1.3 cm nodular density in the upper lobe of the right lung showed no significant FDG uptake, SUV 0.68, consistent with benign disease. There was mild focal increased metabolic activity in the distal esophagus, maximum SUV 4.76, felt to be consistent with inflammatory changes. There was no evidence of mediastinal or distant metastatic disease. Follow recovery from the surgery she underwent CyberKnife radiosurgery, completed on 06/04/2019. She then underwent radiation concurrently with weekly carboplatin/paclitaxel chemotherapy to the primary lesion in the left lung. She completed her radiation on 08/01/2019. She received her sixth weekly infusion of carboplatin/paclitaxel on 07/30/2018. Overall, she tolerated the treatment well. I had seen her initially on 08/05/2019. At that point she was still having some difficulty with swallowing and eating following the chemoradiation. She was having daily epistaxis, and she also was having significant diarrhea. She was treated empirically with Levaquin and acyclovir. Her stool was tested and was negative for C. difficile. Restaging CT of the chest on 08/12/2019 showed persistent left hilar region mass or lymphadenopathy measuring 4.8 right 3.6 x 2.6 cm. It appeared to have decreased slightly compared to the pretreatment PET/CT. There was persistent groundglass density in the posterior segment right upper lobe and there are small bilateral pleural effusions. There was no evidence of metastatic disease. With those findings, she was eligible for maintenance therapy with durvalumab. She began cycle 1 on 09/15/2019. She tolerated it well, and she the continued treatment at 2-week intervals. As of 12/08/2019 she received cycle 7 of durvalumab. During that time, she had been mildly anemic. Her serum iron studies showed low transferrin saturation 19.8%, suggestive of possible iron deficiency. She began on oral iron supplementation. In the meantime, a repeat brain MRI on 10/29/2019 showed a new metastatic lesion in the right occipital lobe measuring 11 mm. There was surrounding vasogenic edema. There was no evidence of recurrent tumor at the left frontal lobe resection site. She was seen by the radiation oncologist at [facility], and she underwent CyberKnife radiosurgery. Treatment included a single fraction of 2400 cGy delivered on 11/20/2019. She tolerated it well. In the meantime, she continued her durvalumab infusions every 2 weeks. Her other medical illnesses include hypertension, hyperlipidemia, coronary artery disease, congestive heart failure, carotid stenosis, peripheral arterial disease, and renal artery stenosis. She has a history of C. difficile colitis. Her surgical procedures have included coronary angioplasty/stent placement, triple coronary artery bypass, femoropopliteal bypass bilaterally, aortofemoral bypass, and renal artery stent placement. She has a history of smoking since age 17, but less than 1/2 pack of cigarettes daily. She quit smoking in May 2019. She had heavy alcohol use in the past, but she quit drinking in 2003. Restaging chest CT on 02/12/2020 showed improvement in the left hilar mass compared to the previous study from August, measuring 2.5 x 2.0 x 2.6 cm. The mass was noted to be inseparable from the left main pulmonary artery. There was less narrowing of upper and lower lobe bronchi. Groundglass attenuation in the right upper lobe measuring 1.5 cm appeared unchanged. An additional area of groundglass attenuation in the left upper lobe also appeared unchanged. Left heart chambers were noted to be markedly enlarged. Also noted was severe atrophy of the left kidney. She is seen for a scheduled visit. She has now completed 11 cycles of durvalumab. She has been tolerating it well. Her energy has been pretty good. She does housework and she says she does lots of walking. ECOG score is 1. She has good appetite. She has not had fever. She had a single episode of night sweating. She has some sinus drainage with a little cough. She does not complain of shortness of breath or chest pain. She has no GI or complaints. She occasionally has pain in her right hand. She has no other joint or bone pain. She does not complain of headache. She sometimes has dizziness. She has no focal neurologic symptoms. Medications: Atorvastatin Calcium 1 Tablet (of 80 mg) Oral daily, Bystolic 1 Tablet (of 5 mg) Oral daily, Captopril 1 Tablet (of 25 mg) Oral b.i.d., Felodipine ER 1 Tablet (of 5 mg) Tablet SR 24 HR Oral daily, Ondansetron HCl 1 Tablet (of 4 mg) Oral b.i.d., Prochlorperazine Maleate 1 Tablet (of 10 mg) Oral b.i.d., Protonix 1 Tablet (of 40 mg) Tablet, enteric coated Oral daily Allergies: No Known Allergies. Review of Systems: Constitutional - She has pretty good energy. She is doing housework and she says she does lots of walking. Appetite is good and her weight is up a few pounds. No fever, night sweats, or hot flashes. ECOG score is 1, ENMT - She has sinus congestion/drainage. No mouth sores. No sore throat or difficulty swallowing, Hematologic/Lymphatic - She has some bruising, Respiratory - No shortness of breath. She has a little bit of cough. No pleuritic pain or hemoptysis. She continues to have some chest congestion, Cardiovascular - No angina pain. No palpitations, Gastrointestinal - No nausea or vomiting. No heartburn or acid reflux. No diarrhea or constipation. No blood in the stool or black stools, Genitourinary (F) - No dysuria or hematuria. No urinary frequency. No urgency or incontinence, Musculoskeletal - She has pain in her right hand occasionally. No other joint or bone pain, Integumentary - No skin rash, Neurologic - No headache. She sometimes has dizziness. No numbness or tingling. No other focal neurologic symptoms, Psychiatric - No anxiety or depression. No insomnia. Vital Signs: Performed on Feb 16, 2020 10:04 Height - 60.00 in Weight - 129.0 lbs (HIGH) BSA - 1.55 sq.m BMI - 25.19 Temperature - 97.0 F (LOW) Pulse - 53 /min (LOW) Respiration - 18 /min BP - 117/59 mm(hg) O2 Sat - 97 % Pain - 0 Physical Examination: Constitutional - She looks good generally, Eyes - Sclerae nonicteric. Conjunctivae clear, ENMT - No lesions noted in the oral cavity, Hematologic/Lymphatic - No cervical, clavicular, or axillary adenopathy, Respiratory - Lungs are clear with some decrease in air movement bilaterally, Cardiovascular - Heart rhythm is regular. There is a II/ systolic murmur. There is no gallop or rub noted, Abdomen - Soft. Liver and spleen are not enlarged. There is no abdominal mass or ascites noted and there is no inguinal adenopathy, Extremities - Slight edema, Neurologic - No focal neurologic deficits noted. Lab/Imaging: Test performed on Feb 16, 2020 08:42 Sodium 137 mmol/L Potassium 4.0 mmol/L Chloride 105 mmol/L CO2 22 mmol/L Anion Gap 14.0 BUN 20 mg/dL Creatinine 1.0 mg/dL Cr Clearance (Est) 42.0300 mL/min Glucose 99 mg/dL Calcium 8.4 mg/dL Protein, Total 6.5 g/dL Albumin 3.6 g/dL Globulin 2.9 g/dL Bilirubin, Total 0.3 mg/dL ALT (SGPT) 9 U/L AST (SGOT) 21 U/L Alkaline Phosphatase 68 IU/L WBC 7.5 10 3/uL RBC 3.45 10 6/uL HGB 10.6 g/dL HCT 33.4 % MCV 96.8 fL MCH 30.7 pg MCHC 31.7 g/dL RDW 14.6 % Platelet Count 181 10 3/cmm MPV 9.6 fL Neutrophils 4.4 10 3/uL Lymphocytes 1.8 10 3/uL Monocytes 1.0 10 3/uL Eosinophils 0.2 10 3/uL Basophils 0.0 10 3/uL Neutrophil % 58.1 % Lymphocyte % 24.3 % Monocyte % 13.7 % Eosinophil % 3.2 % Basophils % 0.4 % Impression: 1. 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 2. She underwent craniotomy with resection of left frontal lobe metastasis on 04/28/2019. Pathology showed metastatic adenocarcinoma consistent with lung primary. The tumor was negative for ALK and ROS1 rearrangements, and EGFR and BRAF mutations were not detected. The tumor showed positive PD-L1 expression at 10% (membranous positivity). 3. She underwent CyberKnife radiosurgery to the site of brain involvement, completed on 06/04/2019. 4. She then underwent treatment to the primary lesion in the left lung with radiation concurrently with weekly carboplatin/paclitaxel chemotherapy. Radiation was completed on 08/01/2019. She received a total of 6 weekly infusions of chemotherapy. Her other medical illnesses include: 5. Hypertension. 6. Hyperlipidemia. 7. Coronary artery disease with previous myocardial infarction and with triple coronary bypass in 2003. 8. Congestive heart failure. 9. Carotid stenosis with previous right carotid endarterectomy. 10. Peripheral arterial disease with previous aortofemoral bypass and femoropopliteal bypass bilaterally. 11. Renal artery stenosis with previous renal artery stent placement. 12. Chronic kidney disease. 13. Her records indicate a history of clostridium difficile colitis. Overall, she tolerated the chemoradiation pretty well. She appeared to have some response by followup CT scan, though it was not dramatic. Nonetheless, she did meet criteria for maintenance therapy with avelumab. She began cycle 1 on 09/15/2019. She tolerated it well. She then continued treatment at 2-week intervals. During that time she remained mildly anemic. Her serum iron studies were suggestive of iron deficiency. She was not able to tolerate an oral iron supplement. A repeat brain MRI on 10/29/2019 showed a new metastatic lesion in the right occipital lobe measuring 11 mm. There was surrounding vasogenic edema. There was no evidence of recurrent tumor at the left frontal lobe resection site. She was seen by the radiation oncologist at [facility], and she underwent CyberKnife radiosurgery. Treatment included a single fraction of 2400 cGy delivered on 11/20/2019. During followup she had gradual improvement in her performance status. She has continued her durvalumab infusions every 2 weeks with no adverse effects. Her restaging chest CT on 02/12/2020 showed residual left hilar region mass, but with further improvement compared to the study from August 2019. Plan: She will continue with cycle 12 of avelumab. The dosage remains the same. She will be scheduled for treatment in 2 weeks. In the meantime, she will be scheduled for repeat MRI, she has not yet had restaging of her [employer] disease since the CyberKnife radiosurgery. Signed By: Ray Wade M.D. <<Signature on File>>
== END 2020-03-09 23:59 | disposition home or self-care (01) ==
LOC: ONCMED 06:46
PROVIDERS: Visit Provider Internal Medicine Medical Oncology
DX: Z51.12 Encounter for antineoplastic immunotherapy (principal); C34.02 Malignant neoplasm of left main bronchus; C79.31 Secondary malignant neoplasm of brain; I65.23 Occlusion and stenosis of bilateral carotid arteries; N18.9 Chronic kidney disease, unspecified; I50.9 Heart failure, unspecified; I25.10 Atherosclerotic heart disease of native coronary artery without angina pectoris; E78.5 Hyperlipidemia, unspecified; I10 Essential (primary) hypertension; I73.9 Peripheral vascular disease, unspecified; I70.1 Atherosclerosis of renal artery; A04.71 Enterocolitis due to Clostridium difficile, recurrent; Z79.899 Other long term (current) drug therapy
CPT/HCPCS: 71260; 80053; 85025; 96413; 99214; J7050; J9173; Q9967

== ENCOUNTER 2020-03-29 06:46 | Outpatient (RCR) | payer MEDICARE, OTHER, SELFPAY ==
[2020-03-15 08:57] LABS: Basophils # 0.1 10^3/uL (0.0-0.1); Basophils % 0.9 %; Eosinophils # 0.3 10^3/uL (0.0-0.8); Eosinophils % 3.8 %; Hematocrit 34.9 % (37.0-47.0); Hemoglobin 11.2 g/dL (11.5-15.3); Lymphocytes # 1.7 10^3/uL (0.8-4.8); Lymphocytes % 24.1 %; Mean Corpuscular HGB Conc 32.1 g/dL (30.0-36.0); Mean Corpuscular Hemoglobin 30.6 pg (28.0-34.0); Mean Corpuscular Volume 95.4 fL (81-99); Mean Platelet Volume 9.4 fL (7.4-10.4); Monocytes # 0.9 10^3/uL (0.2-0.9); Monocytes % 13.2 %; Neutrophils # 4.1 10^3/uL (1.8-7.7); Neutrophils % 57.7 %; Nucleated Red Blood Cells % 0 %; Platelet Count 162 10^3/cmm (130-400); Red Blood Count 3.66 10^6/uL (4.1-5.3); Red Cell Distribution Width 14.2 % (12.1-15.1); White Blood Count 7.1 10^3/uL (4.0-10.0)
[2020-03-15 09:19] LABS: Alanine Aminotransferase 11 U/L (0-33); Albumin Level 3.9 g/dL (3.5-5.2); Alkaline Phosphatase 67 IU/L (35-105); Aspartate Amino Transferase 25 U/L (0-32); Chloride 100 mmol/L (98-107); Glucose 88 mg/dL (65-115); Potassium 3.9 mmol/L (3.5-5.1); Sodium 136 mmol/L (136-145)
[2020-03-15 10:30] LABS: Thyroid Stimulating Hormone 2.85 uIU/mL (0.27-4.20)
[2020-03-15 11:43] LABS: Anion Gap 14.9 (5-19); Blood Urea Nitrogen 12 mg/dL (8-23); Calcium 9.6 mg/dL (8.5-10.5); Carbon Dioxide 25 mmol/L (22-29); Osmolality Calculated 278 mOsm/kg (285-295); Total Bilirubin 0.4 mg/dL (0.15-1.2); Total Protein 6.9 g/dL (6.6-8.7)
--- NOTE | 2020-03-15 11:46 | ONC FU_ITS ---
[facility] Patient Note Patient: Lola Lozano Unit #: [id number]: 1940 Dictated By: Alvarez RamirezDate of Visit: Mar 15, 2020 Onc MED Follow-Up/Prog Note Chief Complaint: Lung cancer. 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 In April 2019 she was admitted to [facility] in [place] after presenting with confusion and frequent falls. Her brain MRI showed a 2.5 x 3.8 x 2.3 cm left anterior frontal convexity mass with surrounding edema extending into the frontal, temporal, and anterior parietal subcortical and periventricular white matter. Her chest x-ray showed a left hilar mass. Her initial staging CT scans showed an irregularly marginated soft tissue density mass in the left suprahilar region measuring 4.5 cm. There was encasement and obstruction of a segmental branch of the left upper lobe bronchus. There was no evidence of mediastinal mass/adenopathy. A subtle opacity in the upper lobe of the right lung was felt to represent minimal infiltrate versus ill-defined small nodule. There were no other findings of metastatic disease. On 04/28/2019 she underwent left frontal craniotomy with resection of the mass. Pathology showed metastatic adenocarcinoma consistent with lung primary. The tumor was found to be negative for the ALK and ROS1 gene rearrangements. EGFR and BRAF mutations were not detected. PD-L1 expression was positive at 10% (membranous positivity). Her staging PET/CT on 05/23/2019 showed an FDG avid left hilar mass measuring 4.9 x 4.2 cm, SUV 13.84. A 1.3 cm nodular density in the upper lobe of the right lung showed no significant FDG uptake, SUV 0.68, consistent with benign disease. There was mild focal increased metabolic activity in the distal esophagus, maximum SUV 4.76, felt to be consistent with inflammatory changes. There was no evidence of mediastinal or distant metastatic disease. Follow recovery from the surgery she underwent CyberKnife radiosurgery, completed on 06/04/2019. She then underwent radiation concurrently with weekly carboplatin/paclitaxel chemotherapy to the primary lesion in the left lung. She completed her radiation on 08/01/2019. She received her sixth weekly infusion of carboplatin/paclitaxel on 07/30/2018. Overall, she tolerated the treatment well. Dr Wade had seen her initially on 08/05/2019. At that point she was still having some difficulty with swallowing and eating following the chemoradiation. She was having daily epistaxis, and she also was having significant diarrhea. She was treated empirically with Levaquin and acyclovir. Her stool was tested and was negative for C. difficile. Restaging CT of the chest on 08/12/2019 showed persistent left hilar region mass or lymphadenopathy measuring 4.8 right 3.6 x 2.6 cm. It appeared to have decreased slightly compared to the pretreatment PET/CT. There was persistent groundglass density in the posterior segment right upper lobe and there are small bilateral pleural effusions. There was no evidence of metastatic disease. With those findings, she was eligible for maintenance therapy with durvalumab. She began cycle 1 on 09/15/2019. She tolerated it well, and she the continued treatment at 2-week intervals. As of 12/08/2019 she received cycle 7 of durvalumab. During that time, she had been mildly anemic. Her serum iron studies showed low transferrin saturation 19.8%, suggestive of possible iron deficiency. She began on oral iron supplementation. In the meantime, a repeat brain MRI on 10/29/2019 showed a new metastatic lesion in the right occipital lobe measuring 11 mm. There was surrounding vasogenic edema. There was no evidence of recurrent tumor at the left frontal lobe resection site. She was seen by the radiation oncologist at [facility], and she underwent CyberKnife radiosurgery. Treatment included a single fraction of 2400 cGy delivered on 11/20/2019. She tolerated it well. In the meantime, she continued her durvalumab infusions every 2 weeks. Her other medical illnesses include hypertension, hyperlipidemia, coronary artery disease, congestive heart failure, carotid stenosis, peripheral arterial disease, and renal artery stenosis. She has a history of C. difficile colitis. Her surgical procedures have included coronary angioplasty/stent placement, triple coronary artery bypass, femoropopliteal bypass bilaterally, aortofemoral bypass, and renal artery stent placement. She has a history of smoking since age 17, but less than 1/2 pack of cigarettes daily. She quit smoking in May 2019. She had heavy alcohol use in the past, but she quit drinking in 2003. Restaging chest CT on 02/12/2020 showed improvement in the left hilar mass compared to the previous study from August, measuring 2.5 x 2.0 x 2.6 cm. The mass was noted to be inseparable from the left main pulmonary artery. There was less narrowing of upper and lower lobe bronchi. Groundglass attenuation in the right upper lobe measuring 1.5 cm appeared unchanged. An additional area of groundglass attenuation in the left upper lobe also appeared unchanged. Left heart chambers were noted to be markedly enlarged. Also noted was severe atrophy of the left kidney. Ms Lozano is here today for followup. She has now completed 13 cycles of durvalumab. She has been tolerating it well. She states she feels good. Her energy has been pretty good. She is still doing housework and she says she does lots of walking. States she is doing well overall. She has good appetite she is eating twice a day. She denies any headache or vision changes. She has had no fever or chills. She denies any diarrhea or constipation. She denies any abdominal pain or diarrhea. She denies cough, shortness of breath orthopnea. She states she feels good in general. ECOG score is 1. Past Medical History: Carotid stenosis Chronic kidney disease Clostridium difficile colitis Congestive heart failure Coronary artery disease Hyperlipidemia Hypertension Peripheral arterial disease Renal artery stenosis Past Surgical History: Coronary angioplasty/stent placement Femoropopliteal bypass bilaterally ORIF for left ankle fracture ORIF for left foot fracture Right Right carotid endarterectomy Benign Tumor removal (back of head) in 2019 Right internal juglar venous access device-[facility] in 2018 Craniotomy with resection of left frontal lobe brain mass in 2018 Aortofemoral bypass in 2004 Renal artery stent placement in 2003 Triple-vessel coronary artery bypass in 2003 Allergies: No Known Allergies. Medications: Atorvastatin Calcium 1 Tablet (of 80 mg) Oral daily Bystolic 1 Tablet (of 5 mg) Oral daily Captopril 1 Tablet (of 25 mg) Oral b.i.d. Felodipine ER 1 Tablet (of 5 mg) Tablet SR 24 HR Oral daily Ondansetron HCl 1 Tablet (of 4 mg) Oral b.i.d. Prochlorperazine Maleate 1 Tablet (of 10 mg) Oral b.i.d. Protonix 1 Tablet (of 40 mg) Tablet, enteric coated Oral daily Family History: Ms. Lozano's mother at age 60: bone cancer, and diabetes. Ms. Lozano's father at age 72: old age. Ms. Lozano has 1 brother who is : bone cancer. She has 2 sisters: 2 alive. Father at age 72, reportedly of old age. Mother at age 60 with advanced malignancy. She also had diabetes. Primary site unknown to the patient. A brother at age 74, bone cancer. Two sisters are still living. One is known to have a cerebral aneurysm. Social History: Ms. Lozano is and she is retired. Ms. Lozano quit smoking less than one year ago but had smoked 0.5 packs/day for 60 years. She quit drinking 15 years ago. Review Of Symptoms: Constitutional Denies fevers, chills, night sweats, excessive fatigue or weight loss. Eating good. Feels good. Allergic/Immunologic No reactions. Eyes Denies significant visual changes. No diplopia. No amaurosis. ENMT Denies changes in hearing, sore throat, mouth sores, difficulty or changes in swallowing ability, and/or sinus drainage. Endocrine No diabetes, thyroid disease or hormone replacement. Denies hot flashes or night sweats. Hematologic/Lymphatic Denies easy bruising or bleeding. The patient denies any tender or palpable lymph nodes. Respiratory Denies dyspnea on exertion, chest pain, cough or hemoptysis. Denies orthopnea. Cardiovascular Denies anginal chest pain, palpitations or orthopnea. Gastrointestinal Denies nausea, vomiting, diarrhea, GI bleeding, or constipation. Denies change in bowel habits and/or stool color, no heartburn or early satiety. Genitourinary (F) No hematuria, hesitancy, incontinence, vaginal bleeding, discharge or other problems with urination. Musculoskeletal Denies joint pain, swelling or redness. No decreased range of motion. Integumentary Denies chronic rashes, inflammation, ulcerations or skin changes. Neurologic Denies headache, blurred vision, and no areas of focal weakness or numbness. Normal gait. No sensory problems. Psychiatric Denies insomnia, depression, bebe or mood swings. Vital Signs: Performed on Mar 15, 2020 11:12 Height - 60.00 in Weight - 128.2 lbs (LOW) BSA - 1.55 sq.m BMI - 25.04 Temperature - 96.2 F (LOW) Pulse - 63 /min Respiration - 18 /min BP - 160/62 mm(hg) (HIGH) O2 Sat - 97 % Pain - 0,1 - No physically strenuous activity, but ambulatory and able to carry out light or sedentary work (e.g. office work, light house work). (ECOG) Physical Examination: Constitutional Alert, oriented, no acute distress. Skin pink, warm and dry. Head Normocephalic; atraumatic. Eyes Conjunctivae and sclerae are clear and without icterus. Pupils are reactive and equal. Neck Supple without masses or thyromegaly. No jugular venous distension. Hematologic/Lymphatic No petechiae or purpura. No tender or palpable lymph nodes in the cervical or supraclavicular areas. Respiratory Lungs are clear to auscultation without rhonchi or wheezing. Cardiovascular Regular rate and rhythm of heart without murmurs,clicks, gallops or rubs. Chest Right chest wall venous access device placement site is unremarkable. Abdomen Non-tender, non-distended, no masses or ascites. Good bowel sounds noted in all quads. No guarding or rebound tenderness. No pulsatile masses. Back/Spine Non-tender to palpation. Extremities No visible deformities, no cyanosis, clubbing or edema. Musculoskeletal No tenderness or swelling, normal range of motion without obvious weakness. Integumentary No rashes or lesions. Neurologic No sensory or motor deficits, normal cerebellar function, normal gait. Psychiatric Alert and oriented times three. Coherent speech. Verbalizes understanding of our discussions today. Laboratory:Test performed on Feb 16, 2020 08:42 Sodium 137 mmol/L Potassium 4.0 mmol/L Chloride 105 mmol/L CO2 22 mmol/L Anion Gap 14.0 BUN 20 mg/dL Creatinine 1.0 mg/dL Cr Clearance (Est) 42.0300 mL/min Glucose 99 mg/dL Calcium 8.4 mg/dL Protein, Total 6.5 g/dL Albumin 3.6 g/dL Globulin 2.9 g/dL Bilirubin, Total 0.3 mg/dL ALT (SGPT) 9 U/L AST (SGOT) 21 U/L Alkaline Phosphatase 68 IU/L WBC 7.5 10 3/uL RBC 3.45 10 6/uL HGB 10.6 g/dL HCT 33.4 % MCV 96.8 fL MCH 30.7 pg MCHC 31.7 g/dL RDW 14.6 % Platelet Count 181 10 3/cmm MPV 9.6 fL Neutrophils 4.4 10 3/uL Lymphocytes 1.8 10 3/uL Monocytes 1.0 10 3/uL Eosinophils 0.2 10 3/uL Basophils 0.0 10 3/uL Neutrophil % 58.1 % Lymphocyte % 24.3 % Monocyte % 13.7 % Eosinophil % 3.2 % Basophils % 0.4 % Test performed on January 19, 2020 09:10 Iron 60 mcg/dL TSH 2.66 uIU/mL Iron Binding Capacity (TIBC) 322 mcg/dl % Iron Saturation 18.6 % UIBC 262 mcg/dL Test performed on Dec 22, 2019 11:23 Magnesium 1.9 mg/dL Test performed on Sep 29, 2019 14:12 Manual Segs 58.4 % Manual Lymphocytes 26.7 % Manual Monocytes 11.6 % Manual Eosinophils 2.6 % Manual Basophils 0.4 % NRBCs 0 /100 WBC Impression: 1. 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 2. She underwent craniotomy with resection of left frontal lobe metastasis on 04/28/2019. Pathology showed metastatic adenocarcinoma consistent with lung primary. The tumor was negative for ALK and ROS1 rearrangements, and EGFR and BRAF mutations were not detected. The tumor showed positive PD-L1 expression at 10% (membranous positivity). 3. She underwent CyberKnife radiosurgery to the site of brain involvement, completed on 06/04/2019. 4. She then underwent treatment to the primary lesion in the left lung with radiation concurrently with weekly carboplatin/paclitaxel chemotherapy. Radiation was completed on 08/01/2019. She received a total of 6 weekly infusions of chemotherapy. Her other medical illnesses include: 5. Hypertension. 6. Hyperlipidemia. 7. Coronary artery disease with previous myocardial infarction and with triple coronary bypass in 2003. 8. Congestive heart failure. 9. Carotid stenosis with previous right carotid endarterectomy. 10. Peripheral arterial disease with previous aortofemoral bypass and femoropopliteal bypass bilaterally. 11. Renal artery stenosis with previous renal artery stent placement. 12. Chronic kidney disease. 13. Her records indicate a history of clostridium difficile colitis. Overall, she tolerated the chemoradiation pretty well. She appeared to have some response by followup CT scan, though it was not dramatic. Nonetheless, she did meet criteria for maintenance therapy with avelumab. She began cycle 1 on 09/15/2019. She tolerated it well. She then continued treatment at 2-week intervals. During that time she remained mildly anemic. Her serum iron studies were suggestive of iron deficiency. She was not able to tolerate an oral iron supplement. A repeat brain MRI on 10/29/2019 showed a new metastatic lesion in the right occipital lobe measuring 11 mm. There was surrounding vasogenic edema. There was no evidence of recurrent tumor at the left frontal lobe resection site. She was seen by the radiation oncologist at [facility], and she underwent CyberKnife radiosurgery. Treatment included a single fraction of 2400 cGy delivered on 11/20/2019. During followup she had gradual improvement in her performance status. She has continued her durvalumab infusions every 2 weeks with no adverse effects. Her restaging chest CT on 02/12/2020 showed residual left hilar region mass, but with further improvement compared to the study from August 2019. Plan: 1. Proceed with cycle 14 of durvalumazlumab. The dosage remains the same. 2. labs from Today were reviewed in detail and discussed with Mrs. Lozano and a copy was given to her. WBC 7.1, hemoglobin 11.2, platelets 262,000, ANC is 4100. Potassium 3.9 random glucose 88 TSH is 2.85. LFTs are normal. 3. MRI of the brain from [facility] on 03/12/2020 reports decreased size in the right occipital enhancing lesion measuring 6 mm previously at 10 mm. Stable left frontal resection cavity and no evidence of any new lesions. 4. CT of the chest with contrast from 02/12/2020 reports severe chronic emphysema significant improvement in the left hilar mass since 08/12/2019. The mass extends over a length of 2.5 cm and transversely by 2 cm and anterior posterior 2.6 cm overall the mass is decreased from 3.6 x 2.6 x 4.82 2.5 x 2.0 x 2.6 cm. No new or increasing lymphadenopathy. Stable groundglass areas of attenuation in the right lobes bilaterally. Severe emphysema and athersosocerir aorta; left cardiomegaly and prior CABG. 5. We will have her return in 2 weeks for repeat immunotherapy. 6. Plan to see her back in 4 weeks with CBC CMP and TSH which time she will be due for cycle 16 durvalumab. 7. Mrs. Lozano was instructed to contact us in the interim should questions or problems arise. Signed By: Alvarez Ramirez-, AOCNP Ray Wade MD <<Signature on File>>
[2020-03-29] MEDS: sodium chloride 0.9% 250 ML 75 ML IV (08:45)
== END 2020-04-09 23:59 | disposition home or self-care (01) ==
LOC: ONCMED 06:46
PROVIDERS: Visit Provider Nurse Practitioner
DX: Z51.12 Encounter for antineoplastic immunotherapy (principal); C34.02 Malignant neoplasm of left main bronchus; C79.31 Secondary malignant neoplasm of brain; E78.5 Hyperlipidemia, unspecified; I25.10 Atherosclerotic heart disease of native coronary artery without angina pectoris; I50.9 Heart failure, unspecified; I73.9 Peripheral vascular disease, unspecified; I70.1 Atherosclerosis of renal artery; I13.0 Hypertensive heart and chronic kidney disease with heart failure and stage 1 through stage 4 chronic kidney disease, or unspecified chronic kidney disease; N18.9 Chronic kidney disease, unspecified; J43.9 Emphysema, unspecified; Z79.899 Other long term (current) drug therapy; Z92.3 Personal history of irradiation; Z95.1 Presence of aortocoronary bypass graft; Z95.5 Presence of coronary angioplasty implant and graft; Z87.891 Personal history of nicotine dependence
CPT/HCPCS: 80053; 84443; 85025; 96413; 99214; J7050; J9173

== ENCOUNTER 2020-05-10 05:33 | Outpatient (RCR) | payer MEDICARE, OTHER, SELFPAY ==
[2020-04-12] MEDS: alteplase 1 mg/mL SDV 2 mL 2 MG IV (09:19)
[2020-04-12 09:55] LABS: Basophils % 0.5 %; Eosinophils # 0.2 10^3/uL (0.0-0.8); Eosinophils % 2.4 %; Hematocrit 37.1 % (37.0-47.0); Hemoglobin 11.8 g/dL (11.5-15.3); Lymphocytes # 1.5 10^3/uL (0.8-4.8); Lymphocytes % 19.5 %; Mean Corpuscular HGB Conc 31.8 g/dL (30.0-36.0); Mean Corpuscular Volume 97.4 fL (81-99); Mean Platelet Volume 9.8 fL (7.4-10.4); Monocytes % 12.6 %; Neutrophils # 4.88 10^3/uL (1.8-7.7); Neutrophils % 64.6 %; Nucleated Red Blood Cells % 0 %; Platelet Count 148 10^3/cmm (130-400); Red Blood Count 3.81 10^6/uL (4.1-5.3); Red Cell Distribution Width 13.8 % (12.1-15.1); White Blood Count 7.6 10^3/uL (4.0-10.0)
[2020-04-12 10:16] LABS: Alanine Aminotransferase 9 U/L (0-33); Albumin Level 3.9 g/dL (3.5-5.2); Alkaline Phosphatase 67 IU/L (35-105); Anion Gap 11.8 (5-19); Aspartate Amino Transferase 25 U/L (0-32); Blood Urea Nitrogen 14 mg/dL (8-23); Calcium 8.9 mg/dL (8.5-10.5); Carbon Dioxide 26 mmol/L (22-29); Chloride 104 mmol/L (98-107); Glucose 102 mg/dL (65-115); Osmolality Calculated 282 mOsm/kg (285-295); Potassium 3.8 mmol/L (3.5-5.1); Sodium 138 mmol/L (136-145); Total Bilirubin 0.3 mg/dL (0.15-1.2); Total Protein 6.9 g/dL (6.6-8.7)
--- NOTE | 2020-04-16 18:02 | ONC FU_ITS ---
Dr. Wade Patient Follow-Up Note Patient: Lola Lozano Unit #: [id number]: 1940 Dicatated By: Ray Wade M.D.Date of Visit:Apr 12, 2020 Onc Med Follow-up/Prog Note Chief Complaint: Lung cancer. 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 In April 2019 she was admitted to [facility] in [employer] after presenting with confusion and frequent falls. Her brain MRI showed a 2.5 x 3.8 x 2.3 cm left anterior frontal convexity mass with surrounding edema extending into the frontal, temporal, and anterior parietal subcortical and periventricular white matter. Her chest x-ray showed a left hilar mass. Her initial staging CT scans showed an irregularly marginated soft tissue density mass in the left suprahilar region measuring 4.5 cm. There was encasement and obstruction of a segmental branch of the left upper lobe bronchus. There was no evidence of mediastinal mass/adenopathy. A subtle opacity in the upper lobe of the right lung was felt to represent minimal infiltrate versus ill-defined small nodule. There were no other findings of metastatic disease. On 04/28/2019 she underwent left frontal craniotomy with resection of the mass. Pathology showed metastatic adenocarcinoma consistent with lung primary. The tumor was found to be negative for the ALK and ROS1 gene rearrangements. EGFR and BRAF mutations were not detected. PD-L1 expression was positive at 10% (membranous positivity). Her staging PET/CT on 05/23/2019 showed an FDG avid left hilar mass measuring 4.9 x 4.2 cm, SUV 13.84. A 1.3 cm nodular density in the upper lobe of the right lung showed no significant FDG uptake, SUV 0.68, consistent with benign disease. There was mild focal increased metabolic activity in the distal esophagus, maximum SUV 4.76, felt to be consistent with inflammatory changes. There was no evidence of mediastinal or distant metastatic disease. Follow recovery from the surgery she underwent CyberKnife radiosurgery, completed on 06/04/2019. She then underwent radiation concurrently with weekly carboplatin/paclitaxel chemotherapy to the primary lesion in the left lung. She completed her radiation on 08/01/2019. She received her sixth weekly infusion of carboplatin/paclitaxel on 07/30/2018. Overall, she tolerated the treatment well. I had seen her initially on 08/05/2019. At that point she was still having some difficulty with swallowing and eating following the chemoradiation. She was having daily epistaxis, and she also was having significant diarrhea. She was treated empirically with Levaquin and acyclovir. Her stool was tested and was negative for C. difficile. Restaging CT of the chest on 08/12/2019 showed persistent left hilar region mass or lymphadenopathy measuring 4.8 right 3.6 x 2.6 cm. It appeared to have decreased slightly compared to the pretreatment PET/CT. There was persistent groundglass density in the posterior segment right upper lobe and there are small bilateral pleural effusions. There was no evidence of metastatic disease. With those findings, she was eligible for maintenance therapy with durvalumab. She began cycle 1 on 09/15/2019. She tolerated it well, and she the continued treatment at 2-week intervals. As of 12/08/2019 she received cycle 7 of durvalumab. During that time, she had been mildly anemic. Her serum iron studies showed low transferrin saturation 19.8%, suggestive of possible iron deficiency. She began on oral iron supplementation. In the meantime, a repeat brain MRI on 10/29/2019 showed a new metastatic lesion in the right occipital lobe measuring 11 mm. There was surrounding vasogenic edema. There was no evidence of recurrent tumor at the left frontal lobe resection site. She was seen by the radiation oncologist at [facility], and she underwent CyberKnife radiosurgery. Treatment included a single fraction of 2400 cGy delivered on 11/20/2019. She tolerated it well. In the meantime, she continued her durvalumab infusions every 2 weeks. Her other medical illnesses include hypertension, hyperlipidemia, coronary artery disease, congestive heart failure, carotid stenosis, peripheral arterial disease, and renal artery stenosis. She has a history of C. difficile colitis. Her surgical procedures have included coronary angioplasty/stent placement, triple coronary artery bypass, femoropopliteal bypass bilaterally, aortofemoral bypass, and renal artery stent placement. She has a history of smoking since age 17, but less than 1/2 pack of cigarettes daily. She quit smoking in May 2019. She had heavy alcohol use in the past, but she quit drinking in 2003. INTERIM HSTORY: Restaging chest CT on 02/12/2020 showed improvement in the left hilar mass compared to the previous study from August, measuring 2.5 x 2.0 x 2.6 cm. The mass was noted to be inseparable from the left main pulmonary artery. There was less narrowing of upper and lower lobe bronchi. Groundglass attenuation in the right upper lobe measuring 1.5 cm appeared unchanged. An additional area of groundglass attenuation in the left upper lobe also appeared unchanged. Left heart chambers were noted to be markedly enlarged. Also noted was severe atrophy of the left kidney. With those findings, she continued her maintenance immunotherapy with durvalumab. Repeat brain MRI on 03/12/2020 showed decrease in the size of the right occipital enhancing lesion measuring 6 mm compared to 10 mm on the previous study. There was stable enhancement along the margins of the resection cavity in the left frontal area. There were no new lesions identified. She is seen for a scheduled visit. She has been feeling pretty good generally, though she says she has been up and down a little. She has normal activity, though. ECOG score is 0. Her appetite is good. She has not had fever. She occasionally has sweating at night. She has sinus drainage with a little bit of cough. Her breathing is better, but she is still sometimes short of breath. She occasionally has a mild pulling discomfort in her chest. She does complain of heartburn. Her bowel function fluctuates between regular and runny stools. She has no complaints. She has some joint pain, mainly in the right hand. She does not complain of headache, and she has no focal neurologic symptoms. Medications: Atorvastatin Calcium 1 Tablet (of 80 mg) Oral daily, Bystolic 1 Tablet (of 5 mg) Oral daily, Captopril 1 Tablet (of 25 mg) Oral b.i.d., Ondansetron HCl 1 Tablet (of 4 mg) Oral b.i.d., Prochlorperazine Maleate 1 Tablet (of 10 mg) Oral b.i.d., Protonix 1 Tablet (of 40 mg) Tablet, enteric coated Oral daily Allergies: No Known Allergies. Review of Systems: Constitutional - Her energy is up and down, but overall pretty good. She has normal activity. Appetite is good and weight is stable. No fever. She occasionally has sweating at night. ECOG score is 0, ENMT - She has sinus drainage. No mouth sores. No sore throat or difficulty swallowing, Hematologic/Lymphatic - She has easy bruising, Respiratory - No sometimes has shortness of breath. She has a little bit of cough. No pleuritic pain or hemoptysis, Cardiovascular - No angina pain. No palpitations, Gastrointestinal - No nausea or vomiting. She has heartburn or acid reflux. Her bowel movements fluctuate between regular and runny stools. No blood in the stool or black stools, Genitourinary (F) - No dysuria or hematuria. No urinary frequency. No urgency or incontinence, Musculoskeletal - She has some pain in her right hand. She has no other joint or bone pain, Integumentary - No skin rash, Neurologic - No headache. She occasionally is off balance. No numbness or tingling. No other focal neurologic symptoms, Psychiatric - No anxiety or depression. No insomnia. Vital Signs: Blood pressure 158/82, pulse 58, respirations 22, temp 97.4 degrees, oxygen saturation 97%. Her weight is 126 pounds. Physical Examination: Constitutional - She looks good generally, Eyes - Sclerae nonicteric. Conjunctivae clear, ENMT - No lesions noted in the oral cavity, Neck - The subcutaneous portion of the Port-A-Cath has become more prominent, extending up into the right side of the neck. There is no associated erythema or tenderness, Hematologic/Lymphatic - No cervical, clavicular, or axillary adenopathy, Respiratory - Lungs are clear with some decrease in air movement bilaterally, Cardiovascular - Heart rhythm is regular. There is a II/ systolic murmur. There is no gallop or rub noted, Abdomen - Soft. Liver and spleen are not enlarged. There is no abdominal mass or ascites noted and there is no inguinal adenopathy, Extremities - No edema, Neurologic - No focal neurologic deficits noted. Lab/Imaging: Test performed on Apr 12, 2020 09:38 Sodium 138 mmol/L Potassium 3.8 mmol/L Chloride 104 mmol/L CO2 26 mmol/L Anion Gap 11.8 BUN 14 mg/dL Creatinine 0.9 mg/dL Cr Clearance (Est) 46.7000 mL/min Glucose 102 mg/dL Calcium 8.9 mg/dL Protein, Total 6.9 g/dL Albumin 3.9 g/dL Globulin 3.0 g/dL Bilirubin, Total 0.3 mg/dL ALT (SGPT) 9 U/L AST (SGOT) 25 U/L Alkaline Phosphatase 67 IU/L WBC 7.6 10 3/uL RBC 3.81 10 6/uL HGB 11.8 g/dL HCT 37.1 % MCV 97.4 fL MCH 31.0 pg MCHC 31.8 g/dL RDW 13.8 % Platelet Count 148 10 3/cmm MPV 9.8 fL Neutrophils 4.88 10 3/uL Lymphocytes 1.5 10 3/uL Monocytes 1.0 10 3/uL Eosinophils 0.2 10 3/uL Basophils 0.0 10 3/uL Neutrophil % 64.6 % Lymphocyte % 19.5 % Monocyte % 12.6 % Eosinophil % 2.4 % Basophils % 0.5 % NRBC % 0 % Impression: 1. 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 2. She underwent craniotomy with resection of left frontal lobe metastasis on 04/28/2019. Pathology showed metastatic adenocarcinoma consistent with lung primary. The tumor was negative for ALK and ROS1 rearrangements, and EGFR and BRAF mutations were not detected. The tumor showed positive PD-L1 expression at 10% (membranous positivity). 3. She underwent CyberKnife radiosurgery to the site of brain involvement, completed on 06/04/2019. 4. She then underwent treatment to the primary lesion in the left lung with radiation concurrently with weekly carboplatin/paclitaxel chemotherapy. Radiation was completed on 08/01/2019. She received a total of 6 weekly infusions of chemotherapy. Her other medical illnesses include: 5. Hypertension. 6. Hyperlipidemia. 7. Coronary artery disease with previous myocardial infarction and with triple coronary bypass in 2003. 8. Congestive heart failure. 9. Carotid stenosis with previous right carotid endarterectomy. 10. Peripheral arterial disease with previous aortofemoral bypass and femoropopliteal bypass bilaterally. 11. Renal artery stenosis with previous renal artery stent placement. 12. Chronic kidney disease. 13. Her records indicate a history of clostridium difficile colitis. Overall, she tolerated the chemoradiation pretty well. She appeared to have some response by followup CT scan, though it was not dramatic. Nonetheless, she did meet criteria for maintenance therapy with avelumab. She began cycle 1 on 09/15/2019. She tolerated it well. She then continued treatment at 2-week intervals. During that time she remained mildly anemic. Her serum iron studies were suggestive of iron deficiency. She was not able to tolerate an oral iron supplement. A repeat brain MRI on 10/29/2019 showed a new metastatic lesion in the right occipital lobe measuring 11 mm. There was surrounding vasogenic edema. There was no evidence of recurrent tumor at the left frontal lobe resection site. She was seen by the radiation oncologist at [facility], and she underwent CyberKnife radiosurgery. Treatment included a single fraction of 2400 cGy delivered on 11/20/2019. During followup she had gradual improvement in her performance status. She continued her durvalumab infusions every 2 weeks with no adverse effects. Her restaging chest CT on 02/12/2020 showed residual left hilar region mass, but with further improvement compared to the study from August 2019. Her repeat brain MRI on 03/12/2020 showed decrease in the right occipital enhancing lesion from 10 mm to 6 mm. There was no evidence of disease progression. She subsequently continued with her maintenance immunotherapy. She has been tolerating it very well, and her overall clinical status remains stable. Plan: She will continue with cycle 14 of durvalumab. The dosage remains the same. She will be scheduled for treatment in 2 weeks. In the meantime, she will be scheduled for a flow study to verify the position of her port. Signed By: Ray Wade M.D. <<Signature on File>>
[2020-05-10 11:20] LABS: Basophils # 0.1 10^3/uL (0.0-0.1); Basophils % 0.7 %; Eosinophils # 0.2 10^3/uL (0.0-0.8); Eosinophils % 2.6 %; Lymphocytes # 2.1 10^3/uL (0.8-4.8); Lymphocytes % 23.9 %; Mean Corpuscular HGB Conc 32.4 g/dL (30.0-36.0); Mean Corpuscular Hemoglobin 31.6 pg (28.0-34.0); Mean Corpuscular Volume 97.4 fL (81-99); Mean Platelet Volume 9.5 fL (7.4-10.4); Monocytes % 11.2 %; Neutrophils # 5.37 10^3/uL (1.8-7.7); Neutrophils % 61.3 %; Nucleated Red Blood Cells % 0 %; Platelet Count 163 10^3/cmm (130-400); Red Cell Distribution Width 13.8 % (12.1-15.1); White Blood Count 8.8 10^3/uL (4.0-10.0)
[2020-05-10 11:52] LABS: Alanine Aminotransferase 9 U/L (0-33); Albumin Level 3.8 g/dL (3.5-5.2); Alkaline Phosphatase 67 IU/L (35-105); Anion Gap 13.3 (5-19); Aspartate Amino Transferase 21 U/L (0-32); Blood Urea Nitrogen 19 mg/dL (8-23); Calcium 9.1 mg/dL (8.5-10.5); Carbon Dioxide 24 mmol/L (22-29); Chloride 103 mmol/L (98-107); Globulin 3.1 g/dL (1.3-4.6); Glucose 96 mg/dL (65-115); Osmolality Calculated 278 mOsm/kg (285-295); Potassium 4.3 mmol/L (3.5-5.1); Sodium 136 mmol/L (136-145); Thyroid Stimulating Hormone 3.78 uIU/mL (0.27-4.20); Total Bilirubin 0.3 mg/dL (0.15-1.2); Total Protein 6.9 g/dL (6.6-8.7)
--- NOTE | 2020-05-10 13:31 | ONC FU_ITS ---
[facility] Patient Note Patient: Lola Lozano Unit #: [id number]: 1940 Dictated By: Alvarez RamirezDate of Visit: May 10, 2020 Onc MED Follow-Up/Prog Note Chief Complaint: Lung cancer. 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 In April 2019 she was admitted to [facility] in [place] after presenting with confusion and frequent falls. Her brain MRI showed a 2.5 x 3.8 x 2.3 cm left anterior frontal convexity mass with surrounding edema extending into the frontal, temporal, and anterior parietal subcortical and periventricular white matter. Her chest x-ray showed a left hilar mass. Her initial staging CT scans showed an irregularly marginated soft tissue density mass in the left suprahilar region measuring 4.5 cm. There was encasement and obstruction of a segmental branch of the left upper lobe bronchus. There was no evidence of mediastinal mass/adenopathy. A subtle opacity in the upper lobe of the right lung was felt to represent minimal infiltrate versus ill-defined small nodule. There were no other findings of metastatic disease. On 04/28/2019 she underwent left frontal craniotomy with resection of the mass. Pathology showed metastatic adenocarcinoma consistent with lung primary. The tumor was found to be negative for the ALK and ROS1 gene rearrangements. EGFR and BRAF mutations were not detected. PD-L1 expression was positive at 10% (membranous positivity). Her staging PET/CT on 05/23/2019 showed an FDG avid left hilar mass measuring 4.9 x 4.2 cm, SUV 13.84. A 1.3 cm nodular density in the upper lobe of the right lung showed no significant FDG uptake, SUV 0.68, consistent with benign disease. There was mild focal increased metabolic activity in the distal esophagus, maximum SUV 4.76, felt to be consistent with inflammatory changes. There was no evidence of mediastinal or distant metastatic disease. Follow recovery from the surgery she underwent CyberKnife radiosurgery, completed on 06/04/2019. She then underwent radiation concurrently with weekly carboplatin/paclitaxel chemotherapy to the primary lesion in the left lung. She completed her radiation on 08/01/2019. She received her sixth weekly infusion of carboplatin/paclitaxel on 07/30/2018. Overall, she tolerated the treatment well. Dr Wade had seen her initially on 08/05/2019. At that point she was still having some difficulty with swallowing and eating following the chemoradiation. She was having daily epistaxis, and she also was having significant diarrhea. She was treated empirically with Levaquin and acyclovir. Her stool was tested and was negative for C. difficile. Restaging CT of the chest on 08/12/2019 showed persistent left hilar region mass or lymphadenopathy measuring 4.8 right 3.6 x 2.6 cm. It appeared to have decreased slightly compared to the pretreatment PET/CT. There was persistent groundglass density in the posterior segment right upper lobe and there are small bilateral pleural effusions. There was no evidence of metastatic disease. With those findings, she was eligible for maintenance therapy with durvalumab. She began cycle 1 on 09/15/2019. She tolerated it well, and she the continued treatment at 2-week intervals. As of 12/08/2019 she received cycle 7 of durvalumab. During that time, she had been mildly anemic. Her serum iron studies showed low transferrin saturation 19.8%, suggestive of possible iron deficiency. She began on oral iron supplementation. In the meantime, a repeat brain MRI on 10/29/2019 showed a new metastatic lesion in the right occipital lobe measuring 11 mm. There was surrounding vasogenic edema. There was no evidence of recurrent tumor at the left frontal lobe resection site. She was seen by the radiation oncologist at [facility], and she underwent CyberKnife radiosurgery. Treatment included a single fraction of 2400 cGy delivered on 11/20/2019. She tolerated it well. In the meantime, she continued her durvalumab infusions every 2 weeks. Her other medical illnesses include hypertension, hyperlipidemia, coronary artery disease, congestive heart failure, carotid stenosis, peripheral arterial disease, and renal artery stenosis. She has a history of C. difficile colitis. Her surgical procedures have included coronary angioplasty/stent placement, triple coronary artery bypass, femoropopliteal bypass bilaterally, aortofemoral bypass, and renal artery stent placement. She has a history of smoking since age 17, but less than 1/2 pack of cigarettes daily. She quit smoking in May 2019. She had heavy alcohol use in the past, but she quit drinking in 2003. INTERIM HSTORY: Restaging chest CT on 02/12/2020 showed improvement in the left hilar mass compared to the previous study from August, measuring 2.5 x 2.0 x 2.6 cm. The mass was noted to be inseparable from the left main pulmonary artery. There was less narrowing of upper and lower lobe bronchi. Groundglass attenuation in the right upper lobe measuring 1.5 cm appeared unchanged. An additional area of groundglass attenuation in the left upper lobe also appeared unchanged. Left heart chambers were noted to be markedly enlarged. Also noted was severe atrophy of the left kidney. With those findings, she continued her maintenance immunotherapy with durvalumab. Repeat brain MRI on 03/12/2020 showed decrease in the size of the right occipital enhancing lesion measuring 6 mm compared to 10 mm on the previous study. There was stable enhancement along the margins of the resection cavity in the left frontal area. There were no new lesions identified. Mrs. Lozano is here today for follow-up. She is due for cycle 18 durvalumab. Overall she states she is doing well. She states she feels good. She is eating good. She remains active around the house. She denies any new pain. She denies fever or chills. She states her bowels are better. She has had no more diarrhea. She states she has no abdominal pain. She denies any shortness of breath orthopnea. She denies any cough, hemoptysis or dyspnea. She has chronic lower extremity edema in the left ankle. She states it is stable. She denies any urinary symptoms. She denies any episodes of confusion, headache or visual changes. Her ECOG is 0. Past Medical History: Carotid stenosis Chronic kidney disease Clostridium difficile colitis Congestive heart failure Coronary artery disease Hyperlipidemia Hypertension Peripheral arterial disease Renal artery stenosis Past Surgical History: Coronary angioplasty/stent placement Femoropopliteal bypass bilaterally ORIF for left ankle fracture ORIF for left foot fracture Right Right carotid endarterectomy Benign Tumor removal (back of head) in 2019 Right internal juglar venous access [place] [place] Craniotomy with resection of left frontal lobe brain mass in 2019 Aortofemoral bypass in 2004 Renal artery stent placement in 2003 Triple-vessel coronary artery bypass in 2003 Allergies: No Known Allergies. Medications: Atorvastatin Calcium 1 Tablet (of 80 mg) Oral daily Bystolic 1 Tablet (of 5 mg) Oral daily Captopril 1 Tablet (of 25 mg) Oral b.i.d. Ondansetron HCl 1 Tablet (of 4 mg) Oral b.i.d. Prochlorperazine Maleate 1 Tablet (of 10 mg) Oral b.i.d. Protonix 1 Tablet (of 40 mg) Tablet, enteric coated Oral daily Family History: Ms. Lozano's mother at age 60: bone cancer, and diabetes. Ms. Lozano's father at age 72: old age. Ms. Lozano has 1 brother who is : bone cancer. She has 2 sisters: 2 alive. Father at age 72, reportedly of old age. Mother at age 60 with advanced malignancy. She also had diabetes. Primary site unknown to the patient. A brother at age 74, bone cancer. Two sisters are still living. One is known to have a cerebral aneurysm. Social History: Ms. Lozano is and she is retired. Ms. Lozano quit smoking less than one year ago but had smoked 0.5 packs/day for 60 years. She quit drinking 15 years ago. Review Of Symptoms: Constitutional Denies fevers, chills, night sweats, excessive fatigue or weight loss. Eating good. Feels good. Allergic/Immunologic No reactions. Eyes Denies significant visual changes. No diplopia. No amaurosis. ENMT Denies changes in hearing, sore throat, mouth sores, difficulty or changes in swallowing ability, and/or sinus drainage. Endocrine No diabetes, thyroid disease or hormone replacement. Denies hot flashes or night sweats. Hematologic/Lymphatic Denies easy bruising or bleeding. The patient denies any tender or palpable lymph nodes. Respiratory Denies dyspnea on exertion, chest pain, cough or hemoptysis. Denies orthopnea. Cardiovascular Denies anginal chest pain, palpitations or orthopnea. Gastrointestinal Denies nausea, vomiting, diarrhea, GI bleeding, or constipation. Denies change in bowel habits and/or stool color, no heartburn or early satiety. Genitourinary (F) No hematuria, hesitancy, incontinence, vaginal bleeding, discharge or other problems with urination. Musculoskeletal Denies joint pain, swelling or redness. No decreased range of motion. Integumentary Denies chronic rashes, inflammation, ulcerations or skin changes. Neurologic Denies headache, blurred vision, and no areas of focal weakness or numbness. Normal gait. No sensory problems. Psychiatric Denies insomnia, depression, bebe or mood swings. Vital Signs: Performed on May 10, 2020 13:01 Height - 60.00 in Weight - 128.0 lbs (LOW) BSA - 1.54 sq.m BMI - 25.00 Temperature - 97.0 F (LOW) Pulse - 80 /min Respiration - 17 /min BP - 127/67 mm(hg) O2 Sat - 93 % (LOW) Pain - 0,0 - Fully active, able to carry on all predisease activities without restrictions. (ECOG) Physical Examination: Constitutional Alert, oriented, no acute distress. Skin pink, warm and dry. Head Normocephalic; atraumatic. Eyes Conjunctivae and sclerae are clear and without icterus. Pupils are reactive and equal. ENMT No oral exudates, ulcers, masses, thrush or mucositis. Oropharynx clear. Tongue normal. Neck Supple without masses or thyromegaly. No jugular venous distension. Hematologic/Lymphatic No petechiae or purpura. No tender or palpable lymph nodes in the cervical or supraclavicular areas. Respiratory Lungs are clear to auscultation without rhonchi or wheezing. Cardiovascular Regular rate and rhythm of heart without murmurs,clicks, gallops or rubs. Chest Right chest wall venous access device placement site is unremarkable. Abdomen Non-tender, non-distended, no masses or ascites. Good bowel sounds noted in all quads. No guarding or rebound tenderness. No pulsatile masses. Back/Spine Non-tender to palpation. Extremities No visible deformities, no cyanosis, clubbing or edema. Musculoskeletal No tenderness or swelling, normal range of motion without obvious weakness. Integumentary No rashes or lesions. Neurologic No sensory or motor deficits, normal cerebellar function, normal gait. Psychiatric Alert and oriented times three. Coherent speech. Verbalizes understanding of our discussions today. Laboratory:Test performed on May 10, 2020 11:08 Sodium 136 mmol/L TSH 3.78 uIU/mL Potassium 4.3 mmol/L Chloride 103 mmol/L CO2 24 mmol/L Anion Gap 13.3 BUN 19 mg/dL Creatinine 1.1 mg/dL Cr Clearance (Est) 38.2100 mL/min Glucose 96 mg/dL Calcium 9.1 mg/dL Protein, Total 6.9 g/dL Albumin 3.8 g/dL Globulin 3.1 g/dL Bilirubin, Total 0.3 mg/dL ALT (SGPT) 9 U/L AST (SGOT) 21 U/L Alkaline Phosphatase 67 IU/L WBC 8.8 10 3/uL RBC 3.80 10 6/uL HGB 12.0 g/dL HCT 37.0 % MCV 97.4 fL MCH 31.6 pg MCHC 32.4 g/dL RDW 13.8 % Platelet Count 163 10 3/cmm MPV 9.5 fL Neutrophils 5.37 10 3/uL Lymphocytes 2.1 10 3/uL Monocytes 1.0 10 3/uL Eosinophils 0.2 10 3/uL Basophils 0.1 10 3/uL Neutrophil % 61.3 % Lymphocyte % 23.9 % Monocyte % 11.2 % Eosinophil % 2.6 % Basophils % 0.7 % NRBC % 0 % Test performed on January 19, 2020 09:10 Iron 60 mcg/dL Iron Binding Capacity (TIBC) 322 mcg/dl % Iron Saturation 18.6 % UIBC 262 mcg/dL Test performed on Dec 22, 2019 11:23 Magnesium 1.9 mg/dL Impression: 1. 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 2. She underwent craniotomy with resection of left frontal lobe metastasis on 04/28/2019. Pathology showed metastatic adenocarcinoma consistent with lung primary. The tumor was negative for ALK and ROS1 rearrangements, and EGFR and BRAF mutations were not detected. The tumor showed positive PD-L1 expression at 10% (membranous positivity). 3. She underwent CyberKnife radiosurgery to the site of brain involvement, completed on 06/04/2019. 4. She then underwent treatment to the primary lesion in the left lung with radiation concurrently with weekly carboplatin/paclitaxel chemotherapy. Radiation was completed on 08/01/2019. She received a total of 6 weekly infusions of chemotherapy. Her other medical illnesses include: 5. Hypertension. 6. Hyperlipidemia. 7. Coronary artery disease with previous myocardial infarction and with triple coronary bypass in 2003. 8. Congestive heart failure. 9. Carotid stenosis with previous right carotid endarterectomy. 10. Peripheral arterial disease with previous aortofemoral bypass and femoropopliteal bypass bilaterally. 11. Renal artery stenosis with previous renal artery stent placement. 12. Chronic kidney disease. 13. Her records indicate a history of clostridium difficile colitis. Overall, she tolerated the chemoradiation pretty well. She appeared to have some response by followup CT scan, though it was not dramatic. Nonetheless, she did meet criteria for maintenance therapy with avelumab. She began cycle 1 on 09/15/2019. She tolerated it well. She then continued treatment at 2-week intervals. During that time she remained mildly anemic. Her serum iron studies were suggestive of iron deficiency. She was not able to tolerate an oral iron supplement. A repeat brain MRI on 10/29/2019 showed a new metastatic lesion in the right occipital lobe measuring 11 mm. There was surrounding vasogenic edema. There was no evidence of recurrent tumor at the left frontal lobe resection site. She was seen by the radiation oncologist at [facility], and she underwent CyberKnife radiosurgery. Treatment included a single fraction of 2400 cGy delivered on 11/20/2019. During followup she had gradual improvement in her performance status. She continued her durvalumab infusions every 2 weeks with no adverse effects. Her restaging chest CT on 02/12/2020 showed residual left hilar region mass, but with further improvement compared to the study from August 2019. Her repeat brain MRI on 03/12/2020 showed decrease in the right occipital enhancing lesion from 10 mm to 6 mm. There was no evidence of disease progression. She subsequently continued with her maintenance immunotherapy. She has been tolerating it very well, and her overall clinical status remains stable. Plan: 1. Proceed with cycle 18 of durvalumab. 2. Continue current plan of care otherwise. 3. Today's labs reviewed in detail discussed with Mrs. Lozano and a copy was given to her. WBC 8.8 hemoglobin 12.0, platelets 163,000 ANC is 5400. Potassium 4.3 random glucose is 96 creatinine 1.1 LFTs are normal. TSH is 3.78. 4. We will plan to have her return in 2 weeks for treatment with durvalumab. 5. We will plan to see her back in 4 weeks with CBC, CMP and TSH. She will be due for cycle 20 durvalumab at that time. 6. Mrs. Lozano was instructed to contact us in the interim should questions or problems arise. Signed By: Alvarez Ramirez-, [facility] Ray Wade MD <<Signature on File>>
== END 2020-05-10 23:59 | disposition home or self-care (01) ==
LOC: ONCMED 05:33
PROVIDERS: Internal Medicine Medical Oncology; Visit Provider Nurse Practitioner
DX: Z51.12 Encounter for antineoplastic immunotherapy (principal); C34.02 Malignant neoplasm of left main bronchus; C79.31 Secondary malignant neoplasm of brain; I13.0 Hypertensive heart and chronic kidney disease with heart failure and stage 1 through stage 4 chronic kidney disease, or unspecified chronic kidney disease; N18.9 Chronic kidney disease, unspecified; I50.9 Heart failure, unspecified; E78.5 Hyperlipidemia, unspecified; I25.2 Old myocardial infarction; I65.29 Occlusion and stenosis of unspecified carotid artery; I73.9 Peripheral vascular disease, unspecified; I70.1 Atherosclerosis of renal artery; F17.210 Nicotine dependence, cigarettes, uncomplicated; Z95.828 Presence of other vascular implants and grafts; Z79.899 Other long term (current) drug therapy; Z92.3 Personal history of irradiation
CPT/HCPCS: 36593; 80053; 84443; 85025; 96375; 96413; 99214; J2997; J7050; J9173

== ENCOUNTER 2020-06-07 05:40 | Outpatient (RCR) | payer MEDICARE, OTHER, SELFPAY ==
[2020-06-07 12:53] LABS: Basophils # 0.1 10^3/uL (0.0-0.1); Basophils % 0.7 %; Eosinophils # 0.2 10^3/uL (0.0-0.8); Eosinophils % 3.1 %; Hematocrit 37.5 % (37.0-47.0); Hemoglobin 12.2 g/dL (11.5-15.3); Lymphocytes # 2.1 10^3/uL (0.8-4.8); Lymphocytes % 29.2 %; Mean Corpuscular HGB Conc 32.5 g/dL (30.0-36.0); Mean Corpuscular Hemoglobin 31.8 pg (28.0-34.0); Mean Corpuscular Volume 97.7 fL (81-99); Mean Platelet Volume 9.4 fL (7.4-10.4); Monocytes # 0.8 10^3/uL (0.2-0.9); Monocytes % 11.3 %; Neutrophils # 4.05 10^3/uL (1.8-7.7); Neutrophils % 55.3 %; Nucleated Red Blood Cells % 0 %; Platelet Count 159 10^3/cmm (130-400); Red Blood Count 3.84 10^6/uL (4.1-5.3); Red Cell Distribution Width 13.9 % (12.1-15.1); White Blood Count 7.3 10^3/uL (4.0-10.0)
[2020-06-07 13:29] LABS: Alanine Aminotransferase 10 U/L (0-33); Albumin Level 3.9 g/dL (3.5-5.2); Alkaline Phosphatase 75 IU/L (35-105); Anion Gap 11.4 (5-19); Aspartate Amino Transferase 26 U/L (0-32); Blood Urea Nitrogen 15 mg/dL (8-23); Calcium 9.3 mg/dL (8.5-10.5); Carbon Dioxide 25 mmol/L (22-29); Chloride 104 mmol/L (98-107); Globulin 2.8 g/dL (1.3-4.6); Glucose 88 mg/dL (65-115); Osmolality Calculated 282 mOsm/kg (285-295); Potassium 4.4 mmol/L (3.5-5.1); Sodium 136 mmol/L (136-145); Thyroid Stimulating Hormone 2.63 uIU/mL (0.27-4.20); Total Bilirubin 0.3 mg/dL (0.15-1.2); Total Protein 6.7 g/dL (6.6-8.7)
== END 2020-06-09 23:59 | disposition home or self-care (01) ==
LOC: ONCMED 05:40
PROVIDERS: Visit Provider Internal Medicine Medical Oncology
DX: Z51.12 Encounter for antineoplastic immunotherapy (principal); C34.02 Malignant neoplasm of left main bronchus; C79.31 Secondary malignant neoplasm of brain
CPT/HCPCS: 80053; 84443; 85025; 96413; J7050; J9173

== ENCOUNTER 2020-07-05 05:35 | Outpatient (RCR) | payer MEDICARE, OTHER, SELFPAY ==
[2020-06-21 09:51] LABS: Basophils # 0.1 10^3/uL (0.0-0.1); Basophils % 0.7 %; Eosinophils # 0.3 10^3/uL (0.0-0.8); Eosinophils % 3.4 %; Hematocrit 37.3 % (37.0-47.0); Lymphocytes # 1.9 10^3/uL (0.8-4.8); Lymphocytes % 25.8 %; Mean Corpuscular HGB Conc 32.2 g/dL (30.0-36.0); Mean Corpuscular Hemoglobin 31.3 pg (28.0-34.0); Mean Corpuscular Volume 97.4 fL (81-99); Mean Platelet Volume 9.8 fL (7.4-10.4); Monocytes # 0.9 10^3/uL (0.2-0.9); Monocytes % 12.7 %; Neutrophils # 4.24 10^3/uL (1.8-7.7); Nucleated Red Blood Cells % 0 %; Platelet Count 184 10^3/cmm (130-400); Red Blood Count 3.83 10^6/uL (4.1-5.3); Red Cell Distribution Width 13.8 % (12.1-15.1); White Blood Count 7.4 10^3/uL (4.0-10.0)
[2020-06-21 10:10] LABS: Alanine Aminotransferase 9 U/L (0-33); Albumin Level 3.9 g/dL (3.5-5.2); Alkaline Phosphatase 73 IU/L (35-105); Anion Gap 14.3 (5-19); Aspartate Amino Transferase 22 U/L (0-32); Blood Urea Nitrogen 14 mg/dL (8-23); Calcium 9.2 mg/dL (8.5-10.5); Carbon Dioxide 23 mmol/L (22-29); Chloride 103 mmol/L (98-107); Globulin 2.7 g/dL (1.3-4.6); Glucose 86 mg/dL (65-115); Osmolality Calculated 282 mOsm/kg (285-295); Potassium 4.3 mmol/L (3.5-5.1); Sodium 136 mmol/L (136-145); Total Bilirubin 0.3 mg/dL (0.15-1.2); Total Protein 6.6 g/dL (6.6-8.7)
--- NOTE | 2020-06-21 11:53 | ONC FU_ITS ---
[facility] Patient Note Patient: Lola Lozano Unit #: [id number]: 1940 Dictated By: Alvarez RamirezDate of Visit: Jun 21, 2020 Onc MED Follow-Up/Prog Note Chief Complaint: Lung cancer. 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 In April 2019 she was admitted to [facility] in [place] after presenting with confusion and frequent falls. Her brain MRI showed a 2.5 x 3.8 x 2.3 cm left anterior frontal convexity mass with surrounding edema extending into the frontal, temporal, and anterior parietal subcortical and periventricular white matter. Her chest x-ray showed a left hilar mass. Her initial staging CT scans showed an irregularly marginated soft tissue density mass in the left suprahilar region measuring 4.5 cm. There was encasement and obstruction of a segmental branch of the left upper lobe bronchus. There was no evidence of mediastinal mass/adenopathy. A subtle opacity in the upper lobe of the right lung was felt to represent minimal infiltrate versus ill-defined small nodule. There were no other findings of metastatic disease. On 04/28/2019 she underwent left frontal craniotomy with resection of the mass. Pathology showed metastatic adenocarcinoma consistent with lung primary. The tumor was found to be negative for the ALK and ROS1 gene rearrangements. EGFR and BRAF mutations were not detected. PD-L1 expression was positive at 10% (membranous positivity). Her staging PET/CT on 05/23/2019 showed an FDG avid left hilar mass measuring 4.9 x 4.2 cm, SUV 13.84. A 1.3 cm nodular density in the upper lobe of the right lung showed no significant FDG uptake, SUV 0.68, consistent with benign disease. There was mild focal increased metabolic activity in the distal esophagus, maximum SUV 4.76, felt to be consistent with inflammatory changes. There was no evidence of mediastinal or distant metastatic disease. Follow recovery from the surgery she underwent CyberKnife radiosurgery, completed on 06/04/2019. She then underwent radiation concurrently with weekly carboplatin/paclitaxel chemotherapy to the primary lesion in the left lung. She completed her radiation on 08/01/2019. She received her sixth weekly infusion of carboplatin/paclitaxel on 07/30/2018. Overall, she tolerated the treatment well. Dr Wade had seen her initially on 08/05/2019. At that point she was still having some difficulty with swallowing and eating following the chemoradiation. She was having daily epistaxis, and she also was having significant diarrhea. She was treated empirically with Levaquin and acyclovir. Her stool was tested and was negative for C. difficile. Restaging CT of the chest on 08/12/2019 showed persistent left hilar region mass or lymphadenopathy measuring 4.8 right 3.6 x 2.6 cm. It appeared to have decreased slightly compared to the pretreatment PET/CT. There was persistent groundglass density in the posterior segment right upper lobe and there are small bilateral pleural effusions. There was no evidence of metastatic disease. With those findings, she was eligible for maintenance therapy with durvalumab. She began cycle 1 on 09/15/2019. She tolerated it well, and she the continued treatment at 2-week intervals. As of 12/08/2019 she received cycle 7 of durvalumab. During that time, she had been mildly anemic. Her serum iron studies showed low transferrin saturation 19.8%, suggestive of possible iron deficiency. She began on oral iron supplementation. In the meantime, a repeat brain MRI on 10/29/2019 showed a new metastatic lesion in the right occipital lobe measuring 11 mm. There was surrounding vasogenic edema. There was no evidence of recurrent tumor at the left frontal lobe resection site. She was seen by the radiation oncologist at [facility], and she underwent CyberKnife radiosurgery. Treatment included a single fraction of 2400 cGy delivered on 11/20/2019. She tolerated it well. In the meantime, she continued her durvalumab infusions every 2 weeks. Her other medical illnesses include hypertension, hyperlipidemia, coronary artery disease, congestive heart failure, carotid stenosis, peripheral arterial disease, and renal artery stenosis. She has a history of C. difficile colitis. Her surgical procedures have included coronary angioplasty/stent placement, triple coronary artery bypass, femoropopliteal bypass bilaterally, aortofemoral bypass, and renal artery stent placement. She has a history of smoking since age 17, but less than 1/2 pack of cigarettes daily. She quit smoking in May 2019. She had heavy alcohol use in the past, but she quit drinking in 2003. INTERIM HSTORY: Restaging chest CT on 02/12/2020 showed improvement in the left hilar mass compared to the previous study from August, measuring 2.5 x 2.0 x 2.6 cm. The mass was noted to be inseparable from the left main pulmonary artery. There was less narrowing of upper and lower lobe bronchi. Groundglass attenuation in the right upper lobe measuring 1.5 cm appeared unchanged. An additional area of groundglass attenuation in the left upper lobe also appeared unchanged. Left heart chambers were noted to be markedly enlarged. Also noted was severe atrophy of the left kidney. With those findings, she continued her maintenance immunotherapy with durvalumab. Repeat brain MRI on 03/12/2020 showed decrease in the size of the right occipital enhancing lesion measuring 6 mm compared to 10 mm on the previous study. There was stable enhancement along the margins of the resection cavity in the left frontal area. There were no new lesions identified. Mrs. Lozano is here today for follow-up. She is due for cycle 21 durvalumab. She has no new concerns today. She states she feels good. She denies any shortness of with orthopnea. She said no cough. She denies hemoptysis. She denies any diarrhea or constipation. Has had no abdominal pain. She denies any pain with breathing. She states she feels good. Her appetite is good. Her energy is good. She denies any concerns of pain or lower extremity edema. She states her energy is good for her. Her ECOG is 1. Past Medical History: Carotid stenosis Chronic kidney disease Clostridium difficile colitis Congestive heart failure Coronary artery disease Hyperlipidemia Hypertension Peripheral arterial disease Renal artery stenosis Past Surgical History: Coronary angioplasty/stent placement Femoropopliteal bypass bilaterally ORIF for left ankle fracture ORIF for left foot fracture Right Right carotid endarterectomy Benign Tumor removal (back of head) in 2019 Right internal juglar venous access device-Dr [place] [place] in 2018 Craniotomy with resection of left frontal lobe brain mass in 2019 Aortofemoral bypass in 2004 Renal artery stent placement in 2003 Triple-vessel coronary artery bypass in 2003 Allergies: No Known Allergies. Medications: Atorvastatin Calcium 1 Tablet (of 80 mg) Oral daily Bystolic 1 Tablet (of 5 mg) Oral daily Captopril 1 Tablet (of 25 mg) Oral b.i.d. Ondansetron HCl 1 Tablet (of 4 mg) Oral b.i.d. Prochlorperazine Maleate 1 Tablet (of 10 mg) Oral b.i.d. Protonix 1 Tablet (of 40 mg) Tablet, enteric coated Oral daily Family History: Ms. Lozano's mother at age 60: bone cancer, and diabetes. Ms. Lozano's father at age 72: old age. Ms. Lozano has 1 brother who is : bone cancer. She has 2 sisters: 2 alive. Father at age 72, reportedly of old age. Mother at age 60 with advanced malignancy. She also had diabetes. Primary site unknown to the patient. A brother at age 74, bone cancer. Two sisters are still living. One is known to have a cerebral aneurysm. Social History: Ms. Lozano is and she is retired. She quit smoking 1 year ago but had smoked 0.5 packs/day for 60 years. She quit drinking 16 years ago. Review Of Symptoms: Constitutional Denies fevers, chills, night sweats, excessive fatigue or weight loss. Eating good. Feels good. Allergic/Immunologic No reactions. Eyes Denies significant visual changes. No diplopia. No amaurosis. ENMT Denies changes in hearing, sore throat, mouth sores, difficulty or changes in swallowing ability, and/or sinus drainage. Endocrine No diabetes, thyroid disease or hormone replacement. Denies hot flashes or night sweats. Hematologic/Lymphatic Denies easy bruising or bleeding. The patient denies any tender or palpable lymph nodes. Respiratory Denies dyspnea on exertion, chest pain, cough or hemoptysis. Denies orthopnea. Cardiovascular Denies anginal chest pain, palpitations or orthopnea. Gastrointestinal Denies nausea, vomiting, diarrhea, GI bleeding, or constipation. Denies change in bowel habits and/or stool color, no heartburn or early satiety. Genitourinary (F) No hematuria, hesitancy, incontinence, vaginal bleeding, discharge or other problems with urination. Musculoskeletal Denies joint pain, swelling or redness. No decreased range of motion. Integumentary Denies chronic rashes, inflammation, ulcerations or skin changes. Neurologic Denies headache, blurred vision, and no areas of focal weakness or numbness. Normal gait. No sensory problems. Psychiatric Denies insomnia, depression, bebe or mood swings. Vital Signs: Performed on Jun 21, 2020 11:33 Height - 60.00 in Weight - 128.2 lbs (HIGH) BSA - 1.55 sq.m BMI - 25.04 Temperature - 96.9 F (LOW) Pulse - 68 /min Respiration - 18 /min BP - 119/64 mm(hg) O2 Sat - 98 % Pain - 0,1 - No physically strenuous activity, but ambulatory and able to carry out light or sedentary work (e.g. office work, light house work). (ECOG) Physical Examination: Constitutional Alert, oriented, no acute distress. Skin pink, warm and dry. Head Normocephalic; atraumatic. Eyes Conjunctivae and sclerae are clear and without icterus. Pupils are reactive and equal. Neck Supple without masses or thyromegaly. No jugular venous distension. Hematologic/Lymphatic No petechiae or purpura. No tender or palpable lymph nodes in the cervical or supraclavicular areas. Respiratory Lungs are clear to auscultation without rhonchi or wheezing. Cardiovascular Regular rate and rhythm of heart without murmurs,clicks, gallops or rubs. Chest Right chest wall venous access device placement site is unremarkable. Back/Spine Non-tender to palpation. Extremities No visible deformities, no cyanosis, clubbing or edema. Musculoskeletal No tenderness or swelling, normal range of motion without obvious weakness. Integumentary No rashes or lesions. Neurologic No sensory or motor deficits, normal cerebellar function, normal gait. Psychiatric Alert and oriented times three. Coherent speech. Verbalizes understanding of our discussions today. Laboratory:Test performed on Jun 21, 2020 09:20 Sodium 136 mmol/L Potassium 4.3 mmol/L Chloride 103 mmol/L CO2 23 mmol/L Anion Gap 14.3 BUN 14 mg/dL Creatinine 1.0 mg/dL Cr Clearance (Est) 42.0300 mL/min Glucose 86 mg/dL Osmolality - Calculated 282 mOsm/kg Calcium 9.2 mg/dL Protein, Total 6.6 g/dL Albumin 3.9 g/dL Globulin 2.7 g/dL Bilirubin, Total 0.3 mg/dL ALT (SGPT) 9 U/L AST (SGOT) 22 U/L Alkaline Phosphatase 73 IU/L WBC 7.4 10 3/uL RBC 3.83 10 6/uL HGB 12.0 g/dL HCT 37.3 % MCV 97.4 fL MCH 31.3 pg MCHC 32.2 g/dL RDW 13.8 % Platelet Count 184 10 3/cmm MPV 9.8 fL Neutrophils 4.24 10 3/uL Lymphocytes 1.9 10 3/uL Monocytes 0.9 10 3/uL Eosinophils 0.3 10 3/uL Basophils 0.1 10 3/uL Neutrophil % 57.0 % Lymphocyte % 25.8 % Monocyte % 12.7 % Eosinophil % 3.4 % Basophils % 0.7 % NRBC % 0 % Test performed on Jun 07, 2020 12:40 TSH 2.63 uIU/mL Impression: 1. 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 2. She underwent craniotomy with resection of left frontal lobe metastasis on 04/28/2019. Pathology showed metastatic adenocarcinoma consistent with lung primary. The tumor was negative for ALK and ROS1 rearrangements, and EGFR and BRAF mutations were not detected. The tumor showed positive PD-L1 expression at 10% (membranous positivity). 3. She underwent CyberKnife radiosurgery to the site of brain involvement, completed on 06/04/2019. 4. She then underwent treatment to the primary lesion in the left lung with radiation concurrently with weekly carboplatin/paclitaxel chemotherapy. Radiation was completed on 08/01/2019. She received a total of 6 weekly infusions of chemotherapy. Her other medical illnesses include: 5. Hypertension. 6. Hyperlipidemia. 7. Coronary artery disease with previous myocardial infarction and with triple coronary bypass in 2003. 8. Congestive heart failure. 9. Carotid stenosis with previous right carotid endarterectomy. 10. Peripheral arterial disease with previous aortofemoral bypass and femoropopliteal bypass bilaterally. 11. Renal artery stenosis with previous renal artery stent placement. 12. Chronic kidney disease. 13. Her records indicate a history of clostridium difficile colitis. Overall, she tolerated the chemoradiation pretty well. She appeared to have some response by followup CT scan, though it was not dramatic. Nonetheless, she did meet criteria for maintenance therapy with avelumab. She began cycle 1 on 09/15/2019. She tolerated it well. She then continued treatment at 2-week intervals. During that time she remained mildly anemic. Her serum iron studies were suggestive of iron deficiency. She was not able to tolerate an oral iron supplement. A repeat brain MRI on 10/29/2019 showed a new metastatic lesion in the right occipital lobe measuring 11 mm. There was surrounding vasogenic edema. There was no evidence of recurrent tumor at the left frontal lobe resection site. She was seen by the radiation oncologist at [facility], and she underwent CyberKnife radiosurgery. Treatment included a single fraction of 2400 cGy delivered on 11/20/2019. During followup she had gradual improvement in her performance status. She continued her durvalumab infusions every 2 weeks with no adverse effects. Her restaging chest CT on 02/12/2020 showed residual left hilar region mass, but with further improvement compared to the study from August 2019. Her repeat brain MRI on 03/12/2020 showed decrease in the right occipital enhancing lesion from 10 mm to 6 mm. There was no evidence of disease progression. She subsequently continued with her maintenance immunotherapy. She has been tolerating it very well, and her overall clinical status remains stable. Plan: 1. Proceed with cycle 21 of durvalumab. 2. Continue current plan of care otherwise. 3. Today's labs reviewed in detail discussed with Mrs. Lozano and a copy was given to her. WBC 7.4 hemoglobin 12.0, platelets 184,000 ANC is 4200. Potassium 4.3 random glucose is 86 creatinine 1.0 LFTs are normal. TSH from 06/07/2020 =2.63. 4. We will plan to have her return in 2 weeks for treatment with durvalumab. 5. We will plan to see her back in 4 weeks with CBC, CMP and TSH. She will be due for cycle 23 durvalumab at that time. 6. Mrs. Lozano was instructed to contact us in the interim should questions or problems arise. Signed By: Alvarez Ramirez-, [facility] Ray Wade MD <<Signature on File>>
[2020-06-21] MEDS: sodium chloride 0.9% 250 ML 75 ML IV (12:05)
[2020-07-05] MEDS: sodium chloride 0.9% 250 ML 75 ML IV (10:30)
== END 2020-07-10 23:59 | disposition home or self-care (01) ==
LOC: ONCMED 05:35
PROVIDERS: Nurse Practitioner; Visit Provider Internal Medicine Medical Oncology
DX: Z51.12 Encounter for antineoplastic immunotherapy (principal); C34.02 Malignant neoplasm of left main bronchus; C79.31 Secondary malignant neoplasm of brain; E78.5 Hyperlipidemia, unspecified; I25.10 Atherosclerotic heart disease of native coronary artery without angina pectoris; I25.2 Old myocardial infarction; I50.9 Heart failure, unspecified; I11.0 Hypertensive heart disease with heart failure; I13.0 Hypertensive heart and chronic kidney disease with heart failure and stage 1 through stage 4 chronic kidney disease, or unspecified chronic kidney disease; N18.9 Chronic kidney disease, unspecified; I73.9 Peripheral vascular disease, unspecified; Z92.3 Personal history of irradiation; Z87.891 Personal history of nicotine dependence; Z79.899 Other long term (current) drug therapy
CPT/HCPCS: 80053; 85025; 96413; 99214; J7050; J9173

== ENCOUNTER 2020-08-02 11:00 | Outpatient (RCR) | payer MEDICARE, OTHER, SELFPAY ==
[2020-07-19 09:43] LABS: Basophils # 0.1 10^3/uL (0.0-0.1); Basophils % 0.7 %; Eosinophils # 0.2 10^3/uL (0.0-0.8); Eosinophils % 2.6 %; Hematocrit 37.7 % (37.0-47.0); Lymphocytes # 2.4 10^3/uL (0.8-4.8); Lymphocytes % 28.6 %; Mean Corpuscular HGB Conc 31.8 g/dL (30.0-36.0); Mean Corpuscular Hemoglobin 32.1 pg (28.0-34.0); Mean Corpuscular Volume 100.8 fL (81-99); Mean Platelet Volume 9.5 fL (7.4-10.4); Monocytes % 12.4 %; Neutrophils # 4.55 10^3/uL (1.8-7.7); Neutrophils % 55.5 %; Nucleated Red Blood Cells % 0 %; Platelet Count 162 10^3/cmm (130-400); Red Blood Count 3.74 10^6/uL (4.1-5.3); Red Cell Distribution Width 13.2 % (12.1-15.1); White Blood Count 8.2 10^3/uL (4.0-10.0)
[2020-07-19 10:19] LABS: Alanine Aminotransferase 11 U/L (0-33); Albumin Level 3.9 g/dL (3.5-5.2); Alkaline Phosphatase 79 IU/L (35-105); Anion Gap 12.3 (5-19); Aspartate Amino Transferase 24 U/L (0-32); Blood Urea Nitrogen 15 mg/dL (8-23); Calcium 9.2 mg/dL (8.5-10.5); Carbon Dioxide 26 mmol/L (22-29); Chloride 105 mmol/L (98-107); Globulin 2.8 g/dL (1.3-4.6); Glucose 105 mg/dL (65-115); Osmolality Calculated 289 mOsm/kg (285-295); Potassium 4.3 mmol/L (3.5-5.1); Sodium 139 mmol/L (136-145); Thyroid Stimulating Hormone 3.21 uIU/mL (0.27-4.20); Total Bilirubin 0.2 mg/dL (0.15-1.2); Total Protein 6.7 g/dL (6.6-8.7)
[2020-07-19] MEDS: sodium chloride 0.9% 250 ML 75 ML IV (12:00)
--- NOTE | 2020-07-20 07:29 | ONC FU_ITS ---
Dr. Wade Patient Follow-Up Note Patient: Lola Lozano Unit #: [id number]: 1940 Dicatated By: Ray Wade M.D.Date of Visit:Jul 19, 2020 Onc Med Follow-up/Prog Note Chief Complaint: Lung cancer. 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 In April 2019 she was admitted to [facility] in [place] after presenting with confusion and frequent falls. Her brain MRI showed a 2.5 x 3.8 x 2.3 cm left anterior frontal convexity mass with surrounding edema extending into the frontal, temporal, and anterior parietal subcortical and periventricular white matter. Her chest x-ray showed a left hilar mass. Her initial staging CT scans showed an irregularly marginated soft tissue density mass in the left suprahilar region measuring 4.5 cm. There was encasement and obstruction of a segmental branch of the left upper lobe bronchus. There was no evidence of mediastinal mass/adenopathy. A subtle opacity in the upper lobe of the right lung was felt to represent minimal infiltrate versus ill-defined small nodule. There were no other findings of metastatic disease. On 04/28/2019 she underwent left frontal craniotomy with resection of the mass. Pathology showed metastatic adenocarcinoma consistent with lung primary. The tumor was found to be negative for the ALK and ROS1 gene rearrangements. EGFR and BRAF mutations were not detected. PD-L1 expression was positive at 10% (membranous positivity). Her staging PET/CT on 05/23/2019 showed an FDG avid left hilar mass measuring 4.9 x 4.2 cm, SUV 13.84. A 1.3 cm nodular density in the upper lobe of the right lung showed no significant FDG uptake, SUV 0.68, consistent with benign disease. There was mild focal increased metabolic activity in the distal esophagus, maximum SUV 4.76, felt to be consistent with inflammatory changes. There was no evidence of mediastinal or distant metastatic disease. Follow recovery from the surgery she underwent CyberKnife radiosurgery, completed on 06/04/2019. She then underwent radiation concurrently with weekly carboplatin/paclitaxel chemotherapy to the primary lesion in the left lung. She completed her radiation on 08/01/2019. She received her sixth weekly infusion of carboplatin/paclitaxel on 07/30/2018. Overall, she tolerated the treatment well. I had seen her initially on 08/05/2019. At that point she was still having some difficulty with swallowing and eating following the chemoradiation. She was having daily epistaxis, and she also was having significant diarrhea. She was treated empirically with Levaquin and acyclovir. Her stool was tested and was negative for C. difficile. Restaging CT of the chest on 08/12/2019 showed persistent left hilar region mass or lymphadenopathy measuring 4.8 right 3.6 x 2.6 cm. It appeared to have decreased slightly compared to the pretreatment PET/CT. There was persistent groundglass density in the posterior segment right upper lobe and there are small bilateral pleural effusions. There was no evidence of metastatic disease. With those findings, she was eligible for maintenance therapy with durvalumab. She began cycle 1 on 09/15/2019. She tolerated it well, and she the continued treatment at 2-week intervals. As of 12/08/2019 she received cycle 7 of durvalumab. During that time, she had been mildly anemic. Her serum iron studies showed low transferrin saturation 19.8%, suggestive of possible iron deficiency. She began on oral iron supplementation. In the meantime, a repeat brain MRI on 10/29/2019 showed a new metastatic lesion in the right occipital lobe measuring 11 mm. There was surrounding vasogenic edema. There was no evidence of recurrent tumor at the left frontal lobe resection site. She was seen by the radiation oncologist at [facility], and she underwent CyberKnife radiosurgery. Treatment included a single fraction of 2400 cGy delivered on 11/20/2019. She tolerated it well. In the meantime, she continued her durvalumab infusions every 2 weeks. Her other medical illnesses include hypertension, hyperlipidemia, coronary artery disease, congestive heart failure, carotid stenosis, peripheral arterial disease, and renal artery stenosis. She has a history of C. difficile colitis. Her surgical procedures have included coronary angioplasty/stent placement, triple coronary artery bypass, femoropopliteal bypass bilaterally, aortofemoral bypass, and renal artery stent placement. She has a history of smoking since age 17, but less than 1/2 pack of cigarettes daily. She quit smoking in May 2019. She had heavy alcohol use in the past, but she quit drinking in 2003. INTERIM HSTORY: Restaging chest CT on 02/12/2020 showed improvement in the left hilar mass compared to the previous study from August, measuring 2.5 x 2.0 x 2.6 cm. The mass was noted to be inseparable from the left main pulmonary artery. There was less narrowing of upper and lower lobe bronchi. Groundglass attenuation in the right upper lobe measuring 1.5 cm appeared unchanged. An additional area of groundglass attenuation in the left upper lobe also appeared unchanged. Left heart chambers were noted to be markedly enlarged. Also noted was severe atrophy of the left kidney. Repeat brain MRI on 03/12/2020 showed decrease in the size of the right occipital enhancing lesion measuring 6 mm compared to 10 mm on the previous study. There was stable enhancement along the margins of the resection cavity in the left frontal area. There were no new lesions identified. She continued her maintenance immunotherapy with durvalumab. She is seen for a scheduled visit. She has been feeling good generally. She says her energy is fine. She is walking every day and she does her housework. ECOG score is 1. Appetite is pretty good. She says she eats twice a day. She does not have fever or night sweats. Her breathing is fine. She has just occasional cough. She does not complain of chest pain. She does report having heartburn. She had been having diarrhea, but that seems to be resolved with Pepto-Bismol. She has no complaints. She has no significant joint or bone pain. She has just occasional headache. She has not had dizziness lately, and she has no focal neurologic symptoms. Medications: Atorvastatin Calcium 1 Tablet (of 80 mg) Oral daily, Bystolic 1 Tablet (of 5 mg) Oral daily, Captopril 1 Tablet (of 25 mg) Oral b.i.d., Ondansetron HCl 1 Tablet (of 4 mg) Oral b.i.d., Prochlorperazine Maleate 1 Tablet (of 10 mg) Oral b.i.d., Protonix 1 Tablet (of 40 mg) Tablet, enteric coated Oral daily Allergies: No Known Allergies. Review of Systems: Constitutional - She has been feeling good generally. She is walking every day and she is doing housework. Appetite is okay. She is eating twice a day. Weight is up a few pounds. She does not have fever or night sweats. ECOG score is 1, ENMT - She has a little bit of sinus drainage. No mouth sores. No sore throat or difficulty swallowing, Hematologic/Lymphatic - She has easy bruising, Respiratory - No shortness of breath. She has just occasional cough. No pleuritic pain or hemoptysis, Cardiovascular - No angina pain. No palpitations, Gastrointestinal - No nausea or vomiting. She has heartburn, which she manages with antacid. She was having diarrhea, that has resolved. No blood in the stool or black stools, Genitourinary (F) - No dysuria or hematuria. No urinary frequency. No urgency or incontinence, Musculoskeletal - No joint or bone pain, Integumentary - No skin rash, Neurologic - No headache. She has just occasional headache. She has not had any dizziness lately. No numbness or tingling. No other focal neurologic symptoms, Psychiatric - No anxiety or depression. No insomnia. Vital Signs: Performed on Jul 19, 2020 11:12 Height - 60.00 in Weight - 130.2 lbs (HIGH) BSA - 1.56 sq.m BMI - 25.43 Temperature - 97.8 F (LOW) Pulse - 77 /min Respiration - 16 /min BP - 146/96 mm(hg) (HIGH) O2 Sat - 97 % Pain - 0 Physical Examination: Constitutional - She looks good generally, Eyes - Sclerae nonicteric. Conjunctivae clear, ENMT - No lesions noted in the oral cavity, Hematologic/Lymphatic - No cervical, clavicular, or axillary adenopathy, Respiratory - Lungs are clear with some decrease in air movement bilaterally, Cardiovascular - Heart rhythm is regular with occasional premature beats. There is a II/ systolic murmur. There is no gallop or rub noted, Abdomen - Soft. Liver and spleen are not enlarged. There is no abdominal mass or ascites noted and there is no inguinal adenopathy, Extremities - Slight edema, Neurologic - No focal neurologic deficits noted. Lab/Imaging: Test performed on Jul 19, 2020 09:30 Sodium 139 mmol/L TSH 3.21 uIU/mL Potassium 4.3 mmol/L Chloride 105 mmol/L CO2 26 mmol/L Anion Gap 12.3 BUN 15 mg/dL Creatinine 1.0 mg/dL Cr Clearance (Est) 42.0300 mL/min Glucose 105 mg/dL Osmolality - Calculated 289 mOsm/kg Calcium 9.2 mg/dL Protein, Total 6.7 g/dL Albumin 3.9 g/dL Globulin 2.8 g/dL Bilirubin, Total 0.2 mg/dL ALT (SGPT) 11 U/L AST (SGOT) 24 U/L Alkaline Phosphatase 79 IU/L WBC 8.2 10 3/uL RBC 3.74 10 6/uL HGB 12.0 g/dL HCT 37.7 % MCV 100.8 fL MCH 32.1 pg MCHC 31.8 g/dL RDW 13.2 % Platelet Count 162 10 3/cmm MPV 9.5 fL Neutrophils 4.55 10 3/uL Lymphocytes 2.4 10 3/uL Monocytes 1.0 10 3/uL Eosinophils 0.2 10 3/uL Basophils 0.1 10 3/uL Neutrophil % 55.5 % Lymphocyte % 28.6 % Monocyte % 12.4 % Eosinophil % 2.6 % Basophils % 0.7 % NRBC % 0 % Impression: 1. 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 2. She underwent craniotomy with resection of left frontal lobe metastasis on 04/28/2019. Pathology showed metastatic adenocarcinoma consistent with lung primary. The tumor was negative for ALK and ROS1 rearrangements, and EGFR and BRAF mutations were not detected. The tumor showed positive PD-L1 expression at 10% (membranous positivity). 3. She underwent CyberKnife radiosurgery to the site of brain involvement, completed on 06/04/2019. 4. She then underwent treatment to the primary lesion in the left lung with radiation concurrently with weekly carboplatin/paclitaxel chemotherapy. Radiation was completed on 08/01/2019. She received a total of 6 weekly infusions of chemotherapy. Her other medical illnesses include: 5. Hypertension. 6. Hyperlipidemia. 7. Coronary artery disease with previous myocardial infarction and with triple coronary bypass in 2003. 8. Congestive heart failure. 9. Carotid stenosis with previous right carotid endarterectomy. 10. Peripheral arterial disease with previous aortofemoral bypass and femoropopliteal bypass bilaterally. 11. Renal artery stenosis with previous renal artery stent placement. 12. Chronic kidney disease. 13. Her records indicate a history of clostridium difficile colitis. Overall, she tolerated the chemoradiation pretty well. She appeared to have some response by followup CT scan, though it was not dramatic. Nonetheless, she did meet criteria for maintenance therapy with avelumab. She began cycle 1 on 09/15/2019. She tolerated it well. She then continued treatment at 2-week intervals. During that time she remained mildly anemic. Her serum iron studies were suggestive of iron deficiency. She was not able to tolerate an oral iron supplement. A repeat brain MRI on 10/29/2019 showed a new metastatic lesion in the right occipital lobe measuring 11 mm. There was surrounding vasogenic edema. There was no evidence of recurrent tumor at the left frontal lobe resection site. She was seen by the radiation oncologist at [facility], and she underwent CyberKnife radiosurgery. Treatment included a single fraction of 2400 cGy delivered on 11/20/2019. During followup she had gradual improvement in her performance status. She continued her durvalumab infusions every 2 weeks with no adverse effects. Her restaging chest CT on 02/12/2020 showed residual left hilar region mass, but with further improvement compared to the study from August 2019. Her repeat brain MRI on 03/12/2020 showed decrease in the right occipital enhancing lesion from 10 mm to 6 mm. There was no evidence of disease progression. She then continued her maintenance durvalumab 2-week intervals. She has continued to tolerate treatment well, and her overall clinical status remains stable. Plan: She will continue with cycle 23 of durvalumab. The dosage remains the same. She will be scheduled for treatment in 2 weeks, and at that time I also will plan to repeat her head MRI. She will be scheduled for a follow-up visit in 4 weeks. Signed By: Ray Wade M.D. <<Signature on File>>
--- NOTE | 2020-08-02 10:59 | MR_ITS ---
WS: [id number] MRI BRAIN WITH AND WITHOUT CONTRAST HISTORY: LUNG Cancer; brain METS, prior brain surgery 1 year ago. History of lung and brain cancer. COMPARISON: None available. TECHNIQUE: Multiplanar imaging performed through the brain with Prohance 10 ml's IV. No evidence for an acute infarct or hemorrhage. Extra-axial ovoid fluid collection adjacent to the LE FT frontal horn measures 4.5 x 0.7 cm. There is very slight mass effect upon the LEFT frontal lobe. T here is adjacent volume loss and gliosis in the frontal lobe. Suspect this is a probably a prior biop sy cavity. On the postcontrast images there is an area of enhancement measuring 7 x 3 mm adjacent to the LEFT frontal biopsy cavity. There is very mild enhancement of the dura which can be seen postsurg ically. No additional areas of enhancement. Periventricular areas of increased T2 and FLAIR signal around the ventricles. Paranasal sinuses: Well aerated with no significant disease. Mastoid air cells: Normal. Calvarium and scalp: No fracture or bone destruction. [place] holes are noted over the LEFT frontal kathleen on. MR/MR head wo/w con [id number] IMPRESSION: 1. Ovoid 7 x 3 mm area of enhancement adjacent to the LEFT frontal surgical si te. Recurrent neoplasm/metastasis not excluded. 2. Extra-axial postoperative dural fluid collection adjacent to the LEFT front al lobe measures 4.5 x 0.7 cm. 3. Mild atrophy and chronic ischemic disease with no additional areas of abnor mal enhancement. 4. No prior MRIs available for comparison. If MRIs become available an addendu m can be submitted to evaluate for any change in the LEFT frontal lobe lesion a nd postoperative cavity.
== END 2020-08-09 23:59 | disposition home or self-care (01) ==
LOC: ONCMED 11:00
PROVIDERS: Visit Provider Internal Medicine Medical Oncology
DX: Z51.12 Encounter for antineoplastic immunotherapy (principal); C34.02 Malignant neoplasm of left main bronchus; C79.31 Secondary malignant neoplasm of brain; Z23 Encounter for immunization; I50.9 Heart failure, unspecified; I13.0 Hypertensive heart and chronic kidney disease with heart failure and stage 1 through stage 4 chronic kidney disease, or unspecified chronic kidney disease; N18.9 Chronic kidney disease, unspecified; E78.5 Hyperlipidemia, unspecified; I25.10 Atherosclerotic heart disease of native coronary artery without angina pectoris; I25.2 Old myocardial infarction; I65.21 Occlusion and stenosis of right carotid artery; I73.9 Peripheral vascular disease, unspecified; I70.1 Atherosclerosis of renal artery; Z92.3 Personal history of irradiation; Z95.1 Presence of aortocoronary bypass graft; Z95.828 Presence of other vascular implants and grafts; Z87.891 Personal history of nicotine dependence; Z79.899 Other long term (current) drug therapy
CPT/HCPCS: 70553; 80053; 84443; 85025; 90471; 90670; 90686; 96413; 99214; A9579; J7050; J9173

== ENCOUNTER 2020-09-01 13:45 | Outpatient (RCR) | payer MEDICARE, OTHER, SELFPAY ==
[2020-08-16 09:43] LABS: Basophils # 0.1 10^3/uL (0.0-0.1); Basophils % 0.7 %; Eosinophils # 0.2 10^3/uL (0.0-0.8); Eosinophils % 2.8 %; Hematocrit 38.2 % (37.0-47.0); Hemoglobin 12.5 g/dL (11.5-15.3); Lymphocytes % 24.3 %; Mean Corpuscular HGB Conc 32.7 g/dL (30.0-36.0); Mean Corpuscular Hemoglobin 32.3 pg (28.0-34.0); Mean Corpuscular Volume 98.7 fL (81-99); Mean Platelet Volume 9.5 fL (7.4-10.4); Monocytes % 11.7 %; Neutrophils # 4.93 10^3/uL (1.8-7.7); Nucleated Red Blood Cells % 0 %; Platelet Count 164 10^3/cmm (130-400); Red Blood Count 3.87 10^6/uL (4.1-5.3); White Blood Count 8.2 10^3/uL (4.0-10.0)
[2020-08-16 10:03] LABS: Alanine Aminotransferase 10 U/L (0-33); Albumin Level 3.9 g/dL (3.5-5.2); Alkaline Phosphatase 71 IU/L (35-105); Anion Gap 12.6 (5-19); Aspartate Amino Transferase 19 U/L (0-32); Blood Urea Nitrogen 20 mg/dL (8-23); Calcium 9.2 mg/dL (8.5-10.5); Carbon Dioxide 25 mmol/L (22-29); Chloride 104 mmol/L (98-107); Globulin 2.9 g/dL (1.3-4.6); Glucose 90 mg/dL (65-115); Osmolality Calculated 286 mOsm/kg (285-295); Potassium 4.6 mmol/L (3.5-5.1); Sodium 137 mmol/L (136-145); Total Bilirubin 0.3 mg/dL (0.15-1.2); Total Protein 6.8 g/dL (6.6-8.7)
--- NOTE | 2020-09-01 13:30 | MR_ITS ---
WS: [id number] MRI BRAIN WITH AND WITHOUT CONTRAST HISTORY: METASTATIC LUNG cancer, enhancing LESION LT FRONTAL SURGICAL SITE COMPARISON: 08/02/2020 TECHNIQUE: Multiplanar imaging performed through the brain with [employer]. Recently described area of enhancement adjacent to the LEFT frontal surgical site is again noted lashay uring 8 x 5 mm. Minimal enlargement but the signal intensity and enhancement and solid component is m ore prominent. Otherwise the enhancement at the resection site is stable. No increase in size of the 5 mm RIGHT occipital lobe nodule which is very difficult to visualize now. There is an area of slight enhancement in the RIGHT temporal lobe which may be a small venous angioma. No evidence for an acute infarct. No hemorrhage. Moderate amount of chronic microvascular ischemic di sease is unchanged. Paranasal sinuses: Well aerated with no significant disease. Mastoid air cells: Normal. Calvarium and scalp: Normal. MR/MR head wo/w con [id number] IMPRESSION: 1. Mild progression of the solid component and intense enhancement involving t he ovoid 8 x 5 mm nodule adjacent to the postsurgical resection site in the LEF T frontal lobe. Very suspicious for recurrent tumor. 2. No increase in size of the 5 mm RIGHT occipital lobe nodule.
== END 2020-09-09 23:59 | disposition home or self-care (01) ==
LOC: ONCMED 13:45
PROVIDERS: Visit Provider Nurse Practitioner
DX: Z51.12 Encounter for antineoplastic immunotherapy (principal); C34.02 Malignant neoplasm of left main bronchus; C79.31 Secondary malignant neoplasm of brain; Z79.899 Other long term (current) drug therapy
CPT/HCPCS: 70553; 80053; 85025; 96413; A9579; J7050; J9173

== ENCOUNTER 2020-10-13 08:28 | Outpatient (CLI) | payer MEDICARE, OTHER, SELFPAY ==
[2020-10-13 09:13] LABS: Basophils # 0.1 10^3/uL (0.0-0.1); Basophils % 0.7 %; Eosinophils # 0.3 10^3/uL (0.0-0.8); Hematocrit 37.3 % (37.0-47.0); Lymphocytes % 24.2 %; Mean Corpuscular HGB Conc 32.2 g/dL (30.0-36.0); Mean Corpuscular Hemoglobin 31.6 pg (28.0-34.0); Mean Corpuscular Volume 98.2 fL (81-99); Mean Platelet Volume 9.3 fL (7.4-10.4); Monocytes % 11.8 %; Neutrophils # 4.96 10^3/uL (1.8-7.7); Neutrophils % 59.9 %; Nucleated Red Blood Cells % 0 %; Platelet Count 196 10^3/cmm (130-400); Red Cell Distribution Width 12.7 % (12.1-15.1); White Blood Count 8.3 10^3/uL (4.0-10.0)
[2020-10-13 09:41] LABS: Alanine Aminotransferase 8 U/L (0-33); Albumin Level 3.6 g/dL (3.5-5.2); Alkaline Phosphatase 72 IU/L (35-105); Anion Gap 11.4 (5-19); Aspartate Amino Transferase 18 U/L (0-32); Blood Urea Nitrogen 16 mg/dL (8-23); Carbon Dioxide 27 mmol/L (22-29); Chloride 101 mmol/L (98-107); Glucose 89 mg/dL (65-115); Osmolality Calculated 281 mOsm/kg (285-295); Potassium 4.4 mmol/L (3.5-5.1); Sodium 135 mmol/L (136-145); Total Bilirubin 0.3 mg/dL (0.15-1.2); Total Protein 6.6 g/dL (6.6-8.7)
--- NOTE | 2020-10-13 18:40 | ONC FU_ITS ---
Dr. Wade Patient Follow-Up Note Patient: Lola Lozano Unit #: [id number]: 1940 Dicatated By: Ray Wade M.D.Date of Visit:Oct 13, 2020 Onc Med Follow-up/Prog Note Chief Complaint: Lung cancer. 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 In April 2019 she was admitted to [facility] in [place] after presenting with confusion and frequent falls. Her brain MRI showed a 2.5 x 3.8 x 2.3 cm left anterior frontal convexity mass with surrounding edema extending into the frontal, temporal, and anterior parietal subcortical and periventricular white matter. Her chest x-ray showed a left hilar mass. Her initial staging CT scans showed an irregularly marginated soft tissue density mass in the left suprahilar region measuring 4.5 cm. There was encasement and obstruction of a segmental branch of the left upper lobe bronchus. There was no evidence of mediastinal mass/adenopathy. A subtle opacity in the upper lobe of the right lung was felt to represent minimal infiltrate versus ill-defined small nodule. There were no other findings of metastatic disease. On 04/28/2019 she underwent left frontal craniotomy with resection of the mass. Pathology showed metastatic adenocarcinoma consistent with lung primary. The tumor was found to be negative for the ALK and ROS1 gene rearrangements. EGFR and BRAF mutations were not detected. PD-L1 expression was positive at 10% (membranous positivity). Her staging PET/CT on 05/23/2019 showed an FDG avid left hilar mass measuring 4.9 x 4.2 cm, SUV 13.84. A 1.3 cm nodular density in the upper lobe of the right lung showed no significant FDG uptake, SUV 0.68, consistent with benign disease. There was mild focal increased metabolic activity in the distal esophagus, maximum SUV 4.76, felt to be consistent with inflammatory changes. There was no evidence of mediastinal or distant metastatic disease. Follow recovery from the surgery she underwent CyberKnife radiosurgery, completed on 06/04/2019. She then underwent radiation concurrently with weekly carboplatin/paclitaxel chemotherapy to the primary lesion in the left lung. She completed her radiation on 08/01/2019. She received her sixth weekly infusion of carboplatin/paclitaxel on 07/30/2018. Overall, she tolerated the treatment well. I had seen her initially on 08/05/2019. At that point she was still having some difficulty with swallowing and eating following the chemoradiation. She was having daily epistaxis, and she also was having significant diarrhea. She was treated empirically with Levaquin and acyclovir. Her stool was tested and was negative for C. difficile. Restaging CT of the chest on 08/12/2019 showed persistent left hilar region mass or lymphadenopathy measuring 4.8 right 3.6 x 2.6 cm. It appeared to have decreased slightly compared to the pretreatment PET/CT. There was persistent groundglass density in the posterior segment right upper lobe and there are small bilateral pleural effusions. There was no evidence of metastatic disease. With those findings, she was eligible for maintenance therapy with durvalumab. She began cycle 1 on 09/15/2019. She tolerated it well, and she the continued treatment at 2-week intervals. As of 12/08/2019 she received cycle 7 of durvalumab. During that time, she had been mildly anemic. Her serum iron studies showed low transferrin saturation 19.8%, suggestive of possible iron deficiency. She began on oral iron supplementation. In the meantime, a repeat brain MRI on 10/29/2019 showed a new metastatic lesion in the right occipital lobe measuring 11 mm. There was surrounding vasogenic edema. There was no evidence of recurrent tumor at the left frontal lobe resection site. She was seen by the radiation oncologist at [facility], and she underwent CyberKnife radiosurgery. Treatment included a single fraction of 2400 cGy delivered on 11/20/2019. She tolerated it well. In the meantime, she continued her durvalumab infusions every 2 weeks. Her other medical illnesses include hypertension, hyperlipidemia, coronary artery disease, congestive heart failure, carotid stenosis, peripheral arterial disease, and renal artery stenosis. She has a history of C. difficile colitis. Her surgical procedures have included coronary angioplasty/stent placement, triple coronary artery bypass, femoropopliteal bypass bilaterally, aortofemoral bypass, and renal artery stent placement. She has a history of smoking since age 17, but less than 1/2 pack of cigarettes daily. She quit smoking in May 2019. She had heavy alcohol use in the past, but she quit drinking in 2003. INTERIM HSTORY: Restaging chest CT on 02/12/2020 showed improvement in the left hilar mass compared to the previous study from August, measuring 2.5 x 2.0 x 2.6 cm. The mass was noted to be inseparable from the left main pulmonary artery. There was less narrowing of upper and lower lobe bronchi. Groundglass attenuation in the right upper lobe measuring 1.5 cm appeared unchanged. An additional area of groundglass attenuation in the left upper lobe also appeared unchanged. Left heart chambers were noted to be markedly enlarged. Also noted was severe atrophy of the left kidney. Repeat brain MRI on 03/12/2020 showed decrease in the size of the right occipital enhancing lesion measuring 6 mm compared to 10 mm on the previous study. There was stable enhancement along the margins of the resection cavity in the left frontal area. There were no new lesions identified. She continued her maintenance immunotherapy with durvalumab. Her repeat head MRI on 08/02/2020 showed a 7 x 3 mm enhancing nodule adjacent to the left frontal surgical site which appeared to be new from previous studies. A right occipital metastatic lesion had significantly decreased in size measuring 3.4 mm. A repeat MRI on 09/01/2020 reported mild progression of the solid component and intense enhancement involving the ovoid 8 x 5 mm nodule adjacent to the post surgical resection site in the left frontal lobe. This was felt to be very suspicious for recurrent tumor. There was no increase in the right occipital lobe nodule. With those findings, she was seen for follow-up by the radiation oncologist in [place]. It was felt that she was not having significant progression, and continued observation was recommended for the brain. In the meantime, she completed cycle 25 of durvalumab on 08/16/2020. She is seen for a scheduled visit. She has been feeling good generally, though her energy is sometimes low. ECOG score is one. Appetite is not all that good, but she does eat breakfast and supper and her weight is up a little. She does not have fever or night sweats. She has a lot of sinus drainage. She has just a little bit of cough. She says her breathing is fine. She does not complain of chest pain. She has no GI or complaints. She has joint pain, mainly just when it rains. She has had a few headaches and she complains that she gets dizzy. She has no focal neurologic symptoms. Medications: Atorvastatin Calcium 1 Tablet (of 80 mg) Oral daily, Bystolic 1 Tablet (of 5 mg) Oral daily, Captopril 1 Tablet (of 25 mg) Oral b.i.d., Ondansetron HCl 1 Tablet (of 4 mg) Oral b.i.d., Prochlorperazine Maleate 1 Tablet (of 10 mg) Oral b.i.d., Protonix 1 Tablet (of 40 mg) Tablet, enteric coated Oral daily Allergies: No Known Allergies. Vital Signs: Performed on Oct 13, 2020 09:56 Height - 60.00 in Weight - 130 lbs (LOW) BSA - 1.55 sq.m BMI - 25.39 Temperature - 98.4 F Pulse - 60 /min Respiration - 18 /min BP - 141/67 mm(hg) (HIGH) O2 Sat - 96 % Pain - 0 Physical Examination: Constitutional - She looks pretty good generally, Eyes - Sclerae nonicteric. Conjunctivae clear, ENMT - No lesions noted in the oral cavity, Hematologic/Lymphatic - No cervical, clavicular, or axillary adenopathy, Respiratory - Lungs are clear with some decrease in air movement bilaterally, Cardiovascular - Heart rhythm is regular. There is a II/ systolic murmur. There is no gallop or rub noted, Abdomen - Soft. Liver and spleen are not enlarged. There is no abdominal mass or ascites noted and there is no inguinal adenopathy, Extremities - No edema, Neurologic - No focal neurologic deficits noted. Lab/Imaging: Test performed on Oct 13, 2020 08:44 Sodium 135 mmol/L Potassium 4.4 mmol/L Chloride 101 mmol/L CO2 27 mmol/L Anion Gap 11.4 BUN 16 mg/dL Creatinine 1.0 mg/dL Cr Clearance (Est) 42.0300 mL/min Glucose 89 mg/dL Osmolality - Calculated 281 mOsm/kg Calcium 9.0 mg/dL Protein, Total 6.6 g/dL Albumin 3.6 g/dL Globulin 3.0 g/dL Bilirubin, Total 0.3 mg/dL ALT (SGPT) 8 U/L AST (SGOT) 18 U/L Alkaline Phosphatase 72 IU/L WBC 8.3 10 3/uL RBC 3.80 10 6/uL HGB 12.0 g/dL HCT 37.3 % MCV 98.2 fL MCH 31.6 pg MCHC 32.2 g/dL RDW 12.7 % Platelet Count 196 10 3/cmm MPV 9.3 fL Neutrophils 4.96 10 3/uL Lymphocytes 2.0 10 3/uL Monocytes 1.0 10 3/uL Eosinophils 0.3 10 3/uL Basophils 0.1 10 3/uL Neutrophil % 59.9 % Lymphocyte % 24.2 % Monocyte % 11.8 % Eosinophil % 3.0 % Basophils % 0.7 % NRBC % 0 % Problem List: 1. Adenocarcinoma involving the hilar region of the left lung, stage SUMIT (T2b, N0, M1b), presenting in April 2019 with a single site of metastatic involvement in the left frontal lobe of the brain. She underwent resection of the left frontal lobe metastasis on 04/28/2019 followed by CyberKnife radiosurgery, completed on 06/04/2019. Pathology showed metastatic adenocarcinoma consistent with lung primary. The tumor was negative for ALK and ROS1 rearrangements, and EGFR and BRAF mutations were not detected. The tumor showed positive PD-L1 expression at 10% (membranous positivity). 3. She underwent CyberKnife radiosurgery to the site of brain involvement, completed on 06/04/2019. 4. She then underwent treatment to the primary lesion in the left lung with radiation concurrently with weekly carboplatin/paclitaxel chemotherapy. Radiation was completed on 08/01/2019. She received a total of 6 weekly infusions of chemotherapy. 5. Hypertension. 6. Hyperlipidemia. 7. Coronary artery disease with previous myocardial infarction and with triple coronary bypass in 2003. 8. Congestive heart failure. 9. Carotid stenosis with previous right carotid endarterectomy. 10. Peripheral arterial disease with previous aortofemoral bypass and femoropopliteal bypass bilaterally. 11. Renal artery stenosis with previous renal artery stent placement. 12. Chronic kidney disease. 13. Her records indicate a history of clostridium difficile colitis. Problems Addressed with this Encounter and Plan: 1. Adenocarcinoma involving the hilar region of the left lung, stage SUMIT (T2b, N0, M1b), presenting in April 2019 with a single site of metastatic involvement in the left frontal lobe of the brain. She underwent resection of the left frontal lobe metastasis on 04/28/2019. Pathology showed metastatic adenocarcinoma consistent with lung primary. The tumor was negative for ALK and ROS1 rearrangements, and EGFR and BRAF mutations were not detected. The tumor showed positive PD-L1 expression at 10% (membranous positivity). She then underwent CyberKnife radiosurgery to the site of brain involvement, completed on 06/04/2019. She underwent treatment to the primary lesion in the left lung with radiation concurrently with weekly carboplatin/paclitaxel chemotherapy. Radiation was completed on 08/01/2019. She received a total of 6 weekly infusions of chemotherapy. She did show some response by follow-up chest CT. She began maintenance immunotherapy with nivolumab on 09/15/2019. She has completed a year of maintenance immunotherapy. She will now have restaging CT scans of the chest, abdomen, and pelvis. Recommendations for further treatment will depend on those results. 2. Her repeat brain MRI on 10/29/2019 showed a new metastatic lesion in the right occipital lobe measuring 11 mm. There was surrounding vasogenic edema. There was no evidence of recurrent tumor at the left frontal lobe resection site. She was seen by the radiation oncologist at [facility], and she underwent CyberKnife radiosurgery. Treatment included a single fraction of 2400 cGy delivered on 11/20/2019. She had a good response. Follow-up head MRI studies in July and in August 2020 showed findings suspicious for progression at the site of the left frontal lobe resection. However, she was then seen in follow-up by the radiation oncologist at [facility], and it was recommended that she continue observation for the brain. She will need to continue follow-up MRI studies at a minimum of three-month intervals. Signed By: Ray Wade M.D. <<Signature on File>>
== END 2020-10-13 08:29 | disposition home or self-care (01) ==
LOC: ONCMED 08:31
PROVIDERS: Visit Provider Internal Medicine Medical Oncology
DX: C79.31 Secondary malignant neoplasm of brain (principal); E78.5 Hyperlipidemia, unspecified; I13.0 Hypertensive heart and chronic kidney disease with heart failure and stage 1 through stage 4 chronic kidney disease, or unspecified chronic kidney disease; I25.10 Atherosclerotic heart disease of native coronary artery without angina pectoris; I65.29 Occlusion and stenosis of unspecified carotid artery; Z92.3 Personal history of irradiation; N18.9 Chronic kidney disease, unspecified; Z95.1 Presence of aortocoronary bypass graft; Z51.12 Encounter for antineoplastic immunotherapy; I73.9 Peripheral vascular disease, unspecified; I70.1 Atherosclerosis of renal artery
CPT/HCPCS: 36591; 80053; 85025; 99214

== ENCOUNTER 2020-11-02 08:18 | Outpatient (CLI) | payer MEDICARE, OTHER, SELFPAY ==
--- NOTE | 2020-11-02 08:15 | CT_ITS ---
WS: [id number] CT CHEST, ABDOMEN AND PELVIS WITH CONTRAST. HISTORY: LUNG CANCER TECHNIQUE: Contiguous 5 mm axial imaging performed through the chest, abdomen and pelvis with IV cont rast, oral contrast has been provided. Coronal and sagittal reformats chest. Coronal and sagittal ref ormats through the abdomen and pelvis. All CT scans at [facility] use at least one of the se dose optimization techniques: automated exposure control; mA and/or kV adjustment per patient size (includes targeted exams where dose is matched to clinical indication); or iterative reconstruction. CONTRAST: Visipaque 320; 95 mL IV. DLP: 1700.98 mGycm COMPARISON: 02/12/[address]: Chronic emphysema with prior CABG. Continued slow improvement in the neoplasm centered at t he LEFT hilum. Lobulated soft tissue mass measures 2.5 x 1.2 as compared to 2.6 x 2.1 cm on the prior examination. Mass is inseparable from the distal LEFT pulmonary artery with mild extension along the proximal LEFT upper and lower lobe pulmonary arteries. Similar to the prior study. Bilateral areas o f groundglass attenuation again noted in the upper lung burgos. The subsolid attenuation in the RIGHT upper lobe measures 1.7 x 1.0 cm and is slightly more prominent as compared to the prior study. Keaton gn granuloma RIGHT middle lobe. Stable atherosclerosis aorta with no aneurysm. Mild enlargement of the LEFT heart chambers. No perica rdial effusion. Normal size pulmonary arteries. No additional mediastinal or hilar adenopathy. Abdomen CT: Normal size liver. Very minimal dilatation of the central bile ducts. Common bile duct at pancreatic head is normal. Gallbladder is present with cholelithiasis. Normal pancreas and spleen. N o adrenal mass. Normal appearance of the RIGHT kidney. Severe atrophy of the LEFT kidney. Aorta: Severe atherosclerotic plaque throughout the abdominal aorta. Heavy calcification at the origi n of the celiac axis, SMA and renal arteries. Status post abdominal aorta bypass grafts. No ascites o r adenopathy. Small hiatal hernia. Mild diffuse constipation. No GI tract obstruction. The appendix is normal. Pelvic CT: No free fluid or adenopathy. Uterus is atrophic as expected. Defect in the anterior pelvic wall with herniated loops of small bowel. There is no obstruction. No osteoblastic or osteolytic bone disease. CT/CT chest abd pel w con* IMPRESSION: 1. Slight decrease in size of the LEFT hilar neoplasm now measuring 2.5 x 1.2 as compared to 2.6 x 2.1 cm. 2. Very slight increase in size of the subsolid nodule in the RIGHT upper lobe now measuring 1.7 x 1.0 cm. Early neoplasm is not excluded. This could be a lo w-grade neoplasm. Continued follow-up recommended. 3. Chronic emphysema and prior CABG. 4. No metastatic disease to the adrenal glands or liver. 5. Severe atrophy LEFT kidney is probably related to severe atherosclerosis of aorta. Additional severe calcification within the mesenteric arteries. 6. Cholelithiasis.
[2020-11-02] MEDS: iohexol 300 mg/mL 50 mL Btl PO (08:35)
[2020-11-02] MEDS: iodixanol 320 mg/mL 100mL Btl IV (09:30)
== END 2020-11-02 08:19 | disposition home or self-care (01) ==
LOC: RADWPI 08:22
PROVIDERS: Visit Provider Internal Medicine Medical Oncology
DX: C34.02 Malignant neoplasm of left main bronchus (principal); K80.20 Calculus of gallbladder without cholecystitis without obstruction; N26.1 Atrophy of kidney (terminal); J43.9 Emphysema, unspecified; Z95.1 Presence of aortocoronary bypass graft; R91.1 Solitary pulmonary nodule; D38.1 Neoplasm of uncertain behavior of trachea, bronchus and lung
CPT/HCPCS: 71260; 74177; Q9967

== ENCOUNTER 2020-11-09 08:04 | Outpatient (CLI) | payer MEDICARE, OTHER, SELFPAY ==
--- NOTE | 2020-11-09 08:55 | ONC FU_ITS ---
Dr. Wade Patient Follow-Up Note Patient: Lola Lozano Unit #: [id number]: 1940 Dicatated By: Ray Wade M.D.Date of Visit:Nov 09, 2020 Onc Med Follow-up/Prog Note Chief Complaint: Lung cancer. 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 In April 2019 she was admitted to [facility] in [place] after presenting with confusion and frequent falls. Her brain MRI showed a 2.5 x 3.8 x 2.3 cm left anterior frontal convexity mass with surrounding edema extending into the frontal, temporal, and anterior parietal subcortical and periventricular white matter. Her chest x-ray showed a left hilar mass. Her initial staging CT scans showed an irregularly marginated soft tissue density mass in the left suprahilar region measuring 4.5 cm. There was encasement and obstruction of a segmental branch of the left upper lobe bronchus. There was no evidence of mediastinal mass/adenopathy. A subtle opacity in the upper lobe of the right lung was felt to represent minimal infiltrate versus ill-defined small nodule. There were no other findings of metastatic disease. On 04/28/2019 she underwent left frontal craniotomy with resection of the mass. Pathology showed metastatic adenocarcinoma consistent with lung primary. The tumor was found to be negative for the ALK and ROS1 gene rearrangements. EGFR and BRAF mutations were not detected. PD-L1 expression was positive at 10% (membranous positivity). Her staging PET/CT on 05/23/2019 showed an FDG avid left hilar mass measuring 4.9 x 4.2 cm, SUV 13.84. A 1.3 cm nodular density in the upper lobe of the right lung showed no significant FDG uptake, SUV 0.68, consistent with benign disease. There was mild focal increased metabolic activity in the distal esophagus, maximum SUV 4.76, felt to be consistent with inflammatory changes. There was no evidence of mediastinal or distant metastatic disease. Follow recovery from the surgery she underwent CyberKnife radiosurgery, completed on 06/04/2019. She then underwent radiation concurrently with weekly carboplatin/paclitaxel chemotherapy to the primary lesion in the left lung. She completed her radiation on 08/01/2019. She received her sixth weekly infusion of carboplatin/paclitaxel on 07/30/2018. Overall, she tolerated the treatment well. I had seen her initially on 08/05/2019. At that point she was still having some difficulty with swallowing and eating following the chemoradiation. She was having daily epistaxis, and she also was having significant diarrhea. She was treated empirically with Levaquin and acyclovir. Her stool was tested and was negative for C. difficile. Restaging CT of the chest on 08/12/2019 showed persistent left hilar region mass or lymphadenopathy measuring 4.8 right 3.6 x 2.6 cm. It appeared to have decreased slightly compared to the pretreatment PET/CT. There was persistent groundglass density in the posterior segment right upper lobe and there are small bilateral pleural effusions. There was no evidence of metastatic disease. With those findings, she was eligible for maintenance therapy with durvalumab. She began cycle 1 on 09/15/2019. She tolerated it well, and she the continued treatment at 2-week intervals. As of 12/08/2019 she received cycle 7 of durvalumab. During that time, she had been mildly anemic. Her serum iron studies showed low transferrin saturation 19.8%, suggestive of possible iron deficiency. She began on oral iron supplementation. In the meantime, a repeat brain MRI on 10/29/2019 showed a new metastatic lesion in the right occipital lobe measuring 11 mm. There was surrounding vasogenic edema. There was no evidence of recurrent tumor at the left frontal lobe resection site. She was seen by the radiation oncologist at [facility], and she underwent CyberKnife radiosurgery. Treatment included a single fraction of 2400 cGy delivered on 11/20/2019. She tolerated it well. In the meantime, she continued her durvalumab infusions every 2 weeks. Her other medical illnesses include hypertension, hyperlipidemia, coronary artery disease, congestive heart failure, carotid stenosis, peripheral arterial disease, and renal artery stenosis. She has a history of C. difficile colitis. Her surgical procedures have included coronary angioplasty/stent placement, triple coronary artery bypass, femoropopliteal bypass bilaterally, aortofemoral bypass, and renal artery stent placement. She has a history of smoking since age 17, but less than 1/2 pack of cigarettes daily. She quit smoking in May 2019. She had heavy alcohol use in the past, but she quit drinking in 2003. INTERIM HSTORY: Restaging chest CT on 02/12/2020 showed improvement in the left hilar mass compared to the previous study from August, measuring 2.5 x 2.0 x 2.6 cm. The mass was noted to be inseparable from the left main pulmonary artery. There was less narrowing of upper and lower lobe bronchi. Groundglass attenuation in the right upper lobe measuring 1.5 cm appeared unchanged. An additional area of groundglass attenuation in the left upper lobe also appeared unchanged. Left heart chambers were noted to be markedly enlarged. Also noted was severe atrophy of the left kidney. Repeat brain MRI on 03/12/2020 showed decrease in the size of the right occipital enhancing lesion measuring 6 mm compared to 10 mm on the previous study. There was stable enhancement along the margins of the resection cavity in the left frontal area. There were no new lesions identified. She continued her maintenance immunotherapy with durvalumab. Her repeat head MRI on 08/02/2020 showed a 7 x 3 mm enhancing nodule adjacent to the left frontal surgical site which appeared to be new from previous studies. A right occipital metastatic lesion had significantly decreased in size measuring 3.4 mm. A repeat MRI on 09/01/2020 reported mild progression of the solid component and intense enhancement involving the ovoid 8 x 5 mm nodule adjacent to the post surgical resection site in the left frontal lobe. This was felt to be very suspicious for recurrent tumor. There was no increase in the right occipital lobe nodule. With those findings, she was seen for follow-up by the radiation oncologist in [place]. It was felt that she was not having significant progression, and continued observation was recommended for the brain. In the meantime, she received cycle 25 of durvalumab on 08/16/2020, completing a year of treatment. Her restaging CT scans of the chest, abdomen, and pelvis on 11/02/2020 showed slight decrease in the left hilar neoplasm measuring 2.5 x 1.2 cm. There was a very slight increase in the subsolid nodule in the right upper lobe measuring 1.7 x 1.0 cm. Low-grade neoplasm was not excluded. There was evidence of chronic emphysema. There was no evidence of metastatic disease. She is seen for a follow-up visit. She has been feeling good generally. She has good energy. She has been doing a lot of walking. She has normal activity. ECOG score is 0. Appetite is okay, though she eats only twice a day. She does not have fever or night sweats. She has some sinus drainage but she has only a little bit of cough. She has some shortness of breath, but her breathing is pretty good. She does not complain of chest pain. She has just occasional heartburn. She has no other GI or complaints. She has no significant joint or bone pain. She does not complain of headache or dizziness, and she has no focal neurologic symptoms. Medications: Atorvastatin Calcium 1 Tablet (of 80 mg) Oral daily, Bystolic 1 Tablet (of 5 mg) Oral daily, Captopril 1 Tablet (of 25 mg) Oral b.i.d., Ondansetron HCl 1 Tablet (of 4 mg) Oral b.i.d., Prochlorperazine Maleate 1 Tablet (of 10 mg) Oral b.i.d., Protonix 1 Tablet (of 40 mg) Tablet, enteric coated Oral daily Allergies: No Known Allergies. Vital Signs: Performed on Nov 09, 2020 08:13 Height - 60.00 in Weight - 130.8 lbs (HIGH) BSA - 1.56 sq.m BMI - 25.55 Temperature - 97.4 F (LOW) Pulse - 61 /min Respiration - 18 /min BP - 153/66 mm(hg) (HIGH) O2 Sat - 98 % Pain - 0 Physical Examination: Constitutional - She looks pretty good generally, Eyes - Sclerae nonicteric. Conjunctivae clear, ENMT - No lesions noted in the oral cavity, Hematologic/Lymphatic - No cervical, clavicular, or axillary adenopathy, Respiratory - Lungs are clear with some decrease in air movement bilaterally, Cardiovascular - Heart rhythm is regular. There is a II/ systolic murmur. There is no gallop or rub noted, Abdomen - Soft. Liver and spleen are not enlarged. There is no abdominal mass or ascites noted and there is no inguinal adenopathy, Extremities - No edema, Neurologic - No focal neurologic deficits noted. Lab/Imaging: Test performed on Oct 13, 2020 08:44 Sodium 135 mmol/L Potassium 4.4 mmol/L Chloride 101 mmol/L CO2 27 mmol/L Anion Gap 11.4 BUN 16 mg/dL Creatinine 1.0 mg/dL Cr Clearance (Est) 42.0300 mL/min Glucose 89 mg/dL Osmolality - Calculated 281 mOsm/kg Calcium 9.0 mg/dL Protein, Total 6.6 g/dL Albumin 3.6 g/dL Globulin 3.0 g/dL Bilirubin, Total 0.3 mg/dL ALT (SGPT) 8 U/L AST (SGOT) 18 U/L Alkaline Phosphatase 72 IU/L WBC 8.3 10 3/uL RBC 3.80 10 6/uL HGB 12.0 g/dL HCT 37.3 % MCV 98.2 fL MCH 31.6 pg MCHC 32.2 g/dL RDW 12.7 % Platelet Count 196 10 3/cmm MPV 9.3 fL Neutrophils 4.96 10 3/uL Lymphocytes 2.0 10 3/uL Monocytes 1.0 10 3/uL Eosinophils 0.3 10 3/uL Basophils 0.1 10 3/uL Neutrophil % 59.9 % Lymphocyte % 24.2 % Monocyte % 11.8 % Eosinophil % 3.0 % Basophils % 0.7 % NRBC % 0 % Problem List: 1. Adenocarcinoma involving the hilar region of the left lung, stage SUMIT (T2b, N0, M1b), presenting in April 2019 with a single site of metastatic involvement in the left frontal lobe of the brain. She underwent resection of the left frontal lobe metastasis on 04/28/2019 followed by CyberKnife radiosurgery, completed on 06/04/2019. Pathology showed metastatic adenocarcinoma consistent with lung primary. The tumor was negative for ALK and ROS1 rearrangements, and EGFR and BRAF mutations were not detected. The tumor showed positive PD-L1 expression at 10% (membranous positivity). 3. She underwent CyberKnife radiosurgery to the site of brain involvement, completed on 06/04/2019. 4. She then underwent treatment to the primary lesion in the left lung with radiation concurrently with weekly carboplatin/paclitaxel chemotherapy. Radiation was completed on 08/01/2019. She received a total of 6 weekly infusions of chemotherapy. 5. Hypertension. 6. Hyperlipidemia. 7. Coronary artery disease with previous myocardial infarction and with triple coronary bypass in 2003. 8. Congestive heart failure. 9. Carotid stenosis with previous right carotid endarterectomy. 10. Peripheral arterial disease with previous aortofemoral bypass and femoropopliteal bypass bilaterally. 11. Renal artery stenosis with previous renal artery stent placement. 12. Chronic kidney disease. 13. Her records indicate a history of clostridium difficile colitis. Problems Addressed with this Encounter and Plan: 1. Adenocarcinoma involving the hilar region of the left lung, stage SUMIT (T2b, N0, M1b), presenting in April 2019 with a single site of metastatic involvement in the left frontal lobe of the brain. She underwent resection of the left frontal lobe metastasis on 04/28/2019. Pathology showed metastatic adenocarcinoma consistent with lung primary. The tumor was negative for ALK and ROS1 rearrangements, and EGFR and BRAF mutations were not detected. The tumor showed positive PD-L1 expression at 10% (membranous positivity). She then underwent CyberKnife radiosurgery to the site of brain involvement, completed on 06/04/2019. She underwent treatment to the primary lesion in the left lung with radiation concurrently with weekly carboplatin/paclitaxel chemotherapy. Radiation was completed on 08/01/2019. She received a total of 6 weekly infusions of chemotherapy. She did show some response by follow-up chest CT. She began maintenance immunotherapy with nivolumab on 09/15/2019. She completed a year of maintenance immunotherapy. Her restaging CT scans showed continued slight decrease in the left hilar neoplasm. There was a slight increase in the right upper lobe pulmonary nodule, and low-grade neoplasm was not excluded. There was no evidence of metastatic disease. Given the findings, she will continue follow-up on observation/expectant management. I will see her again with restaging CT scans in 3 months. 2. Her repeat brain MRI on 10/29/2019 showed a new metastatic lesion in the right occipital lobe measuring 11 mm. There was surrounding vasogenic edema. There was no evidence of recurrent tumor at the left frontal lobe resection site. She was seen by the radiation oncologist at [facility], and she underwent CyberKnife radiosurgery. Treatment included a single fraction of 2400 cGy delivered on 11/20/2019. She had a good response. Follow-up head MRI studies in July and in August 2020 showed findings suspicious for progression at the site of the left frontal lobe resection. However, she was then seen in follow-up by the radiation oncologist at [facility], and it was recommended that she continue observation for the brain. She will have a repeat MRI with her next followup visit. Signed By: Ray Wade M.D. <<Signature on File>>
== END 2020-11-09 08:05 | disposition home or self-care (01) ==
PROVIDERS: Visit Provider Internal Medicine Medical Oncology
DX: C34.02 Malignant neoplasm of left main bronchus (principal); C79.31 Secondary malignant neoplasm of brain; Z92.3 Personal history of irradiation; Z92.21 Personal history of antineoplastic chemotherapy; Z92.22 Personal history of monoclonal drug therapy
CPT/HCPCS: 99214

== ENCOUNTER 2021-01-03 10:42 | Outpatient (CLI) | payer MEDICARE, OTHER, SELFPAY ==
--- NOTE | 2021-01-03 10:53 | CT_ITS ---
WS: [id number] Exam: CT chest w con* [id number] Date/Time of Exam: 01/03/2021 10:58 AM Reason For Exam: LUNG CANCER DLP: 577.[address] scans at [facility] use at least one of these dose optimization techniques: automat ed exposure control; mA and/or kV adjustment per patient size (includes targeted exams where dose is matched to clinical indication); or iterative reconstruction. 100 mL of nonionic radiographic contras t administered intravenously for the exam. Compared to the latest exam performed 11/02/2020. 2.5 x 1.2 cm lobulated left hilar mass again noted unchanged in appearance. The mass abuts the distal left main pulmonary artery. Bilateral groundglass focal infiltrates are seen in both upper lobes and are unchanged in appearance. The airway is patent. Small infiltrate also noted in the left lower lob e unchanged in appearance and probably chronic. The lungs are fully expanded. The thoracic aorta is n ormal in caliber. No mediastinal lymphadenopathy. Coronary artery calcifications. No pleural or peric ardial effusion. Atrophic left kidney. Cholelithiasis. Normal adrenal glands. Signs of previous media n sternotomy. No destructive bone lesions. CT/CT chest w con* [id number] IMPRESSION: 1. Stable-appearing 2.5 x 1.2 cm lobulated left hilar mass. No new pulmonary le sions or significant lymphadenopathy in the chest. 2. Small focal groundglass densities seen in both upper lobes and also the left lower lobe stable in appearance since prior study. Other chronic findings as a anu.
[2021-01-03 11:49] LABS: Blood Urea Nitrogen 10 mg/dL (8-23)
[2021-01-03] MEDS: iodixanol 320 mg/mL 100mL Btl IV (11:52)
== END 2021-01-03 10:43 | disposition home or self-care (01) ==
PROVIDERS: Nurse Practitioner; PCP Internal Medicine Medical Oncology; Visit Provider Internal Medicine Medical Oncology
DX: C34.02 Malignant neoplasm of left main bronchus (principal)
CPT/HCPCS: 71260; 82565; 84520; Q9967

== ENCOUNTER 2021-01-04 08:42 | Outpatient (CLI) | payer MEDICARE, OTHER, SELFPAY ==
--- NOTE | 2021-01-04 08:44 | MR_ITS ---
WS: [id number] MRI BRAIN WITH AND WITHOUT CONTRAST HISTORY: LUNG CANCER;BRAIN METS COMPARISON: 09/01/2020 and 08/02/2020 TECHNIQUE: Multiplanar imaging performed through the brain with MultiHance 13 ml's IV. No acute infarct or acute hemorrhage. Subdural collection over the LEFT frontal lobe measures 4.7 x 0 .7 cm and has not significantly changed. This is a subdural postoperative collection from prior biops y procedure. There is no significant change in the ovoid 5 mm enhancing nodule in the LEFT frontal lobe at the sit e of the prior biopsy. This is along the edge of the postoperative cavity. There may be some very min imal decrease in size but the measurement is still 5 mm. Mild enhancement at the postoperative cavity could be postsurgical. There is no significant nodularity to the enhancement. Again noted is a 4 mm area of enhancement in the RIGHT occipital lobe consistent with a treated metastatic site. There is s till enhancement but no increase in size. No additional areas suspicious for metastatic disease. Paranasal sinuses: Well aerated with no significant disease. Mastoid air cells: Normal. Calvarium and scalp: Postoperative changes LEFT frontal bone. MR/MR head wo/w con [id number] IMPRESSION: 1. No significant progression of the enhancing lesion in the LEFT frontal lobe at the postsurgical biopsy site. This lesion still measures 5 mm and there is no progression or improvement. 2. 4 mm RIGHT occipital lobe metastatic site is also unchanged with no progres chelsey. 3. Postoperative RIGHT frontal subdural collection is stable.
[2021-01-04] MEDS: gadobenate dimeglumine 20 mL vial IV (10:35)
== END 2021-01-04 08:43 | disposition home or self-care (01) ==
LOC: ONCMED 08:43
PROVIDERS: Visit Provider Internal Medicine Medical Oncology
DX: C34.02 Malignant neoplasm of left main bronchus (principal); C79.31 Secondary malignant neoplasm of brain
CPT/HCPCS: 70553; A9577

== ENCOUNTER 2021-01-27 13:00 | Outpatient (CLI) | payer MEDICARE, OTHER, SELFPAY ==
[2021-01-27 14:16] LABS: Basophils # 0.1 10^3/uL (0.0-0.1); Basophils % 0.8 %; Eosinophils # 0.2 10^3/uL (0.0-0.8); Eosinophils % 2.9 %; Hemoglobin 12.3 g/dL (11.5-15.3); Lymphocytes # 1.9 10^3/uL (0.8-4.8); Lymphocytes % 24.7 %; Mean Corpuscular HGB Conc 32.4 g/dL (30.0-36.0); Mean Corpuscular Hemoglobin 31.1 pg (28.0-34.0); Monocytes # 0.8 10^3/uL (0.2-0.9); Monocytes % 10.8 %; Neutrophils # 4.61 10^3/uL (1.8-7.7); Neutrophils % 60.5 %; Nucleated Red Blood Cells % 0 %; Platelet Count 194 10^3/cmm (130-400); Red Blood Count 3.96 10^6/uL (4.1-5.3); Red Cell Distribution Width 13.5 % (12.1-15.1); White Blood Count 7.6 10^3/uL (4.0-10.0)
[2021-01-27 14:21] LABS: Alanine Aminotransferase 10 U/L (0-33); Albumin Level 3.7 g/dL (3.5-5.2); Alkaline Phosphatase 62 IU/L (35-105); Anion Gap 13.5 (5-19); Aspartate Amino Transferase 26 U/L (0-32); Blood Urea Nitrogen 10 mg/dL (8-23); Calcium 8.4 mg/dL (8.5-10.5); Carbon Dioxide 25 mmol/L (22-29); Chloride 104 mmol/L (98-107); Globulin 3.1 g/dL (1.3-4.6); Glucose 87 mg/dL (65-115); Osmolality Calculated 284 mOsm/kg (285-295); Potassium 4.5 mmol/L (3.5-5.1); Sodium 138 mmol/L (136-145); Total Bilirubin 0.5 mg/dL (0.15-1.2); Total Protein 6.8 g/dL (6.6-8.7)
--- NOTE | 2021-01-28 06:30 | ONC FU_ITS ---
Dr. Wade Patient Follow-Up Note Patient: Lola Lozano Unit #: [id number]: 1940 Dicatated By: Ray Wade M.D.Date of Visit:January 27, 2021 Onc Med Follow-up/Prog Note Chief Complaint: Lung cancer. 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 In April 2019 she was admitted to [facility] in [place] after presenting with confusion and frequent falls. Her brain MRI showed a 2.5 x 3.8 x 2.3 cm left anterior frontal convexity mass with surrounding edema extending into the frontal, temporal, and anterior parietal subcortical and periventricular white matter. Her chest x-ray showed a left hilar mass. Her initial staging CT scans showed an irregularly marginated soft tissue density mass in the left suprahilar region measuring 4.5 cm. There was encasement and obstruction of a segmental branch of the left upper lobe bronchus. There was no evidence of mediastinal mass/adenopathy. A subtle opacity in the upper lobe of the right lung was felt to represent minimal infiltrate versus ill-defined small nodule. There were no other findings of metastatic disease. On 04/28/2019 she underwent left frontal craniotomy with resection of the mass. Pathology showed metastatic adenocarcinoma consistent with lung primary. The tumor was found to be negative for the ALK and ROS1 gene rearrangements. EGFR and BRAF mutations were not detected. PD-L1 expression was positive at 10% (membranous positivity). Her staging PET/CT on 05/23/2019 showed an FDG avid left hilar mass measuring 4.9 x 4.2 cm, SUV 13.84. A 1.3 cm nodular density in the upper lobe of the right lung showed no significant FDG uptake, SUV 0.68, consistent with benign disease. There was mild focal increased metabolic activity in the distal esophagus, maximum SUV 4.76, felt to be consistent with inflammatory changes. There was no evidence of mediastinal or distant metastatic disease. Follow recovery from the surgery she underwent CyberKnife radiosurgery, completed on 06/04/2019. She then underwent radiation concurrently with weekly carboplatin/paclitaxel chemotherapy to the primary lesion in the left lung. She completed her radiation on 08/01/2019. She received her sixth weekly infusion of carboplatin/paclitaxel on 07/30/2018. Overall, she tolerated the treatment well. I had seen her initially on 08/05/2019. At that point she was still having some difficulty with swallowing and eating following the chemoradiation. She was having daily epistaxis, and she also was having significant diarrhea. She was treated empirically with Levaquin and acyclovir. Her stool was tested and was negative for C. difficile. Restaging CT of the chest on 08/12/2019 showed persistent left hilar region mass or lymphadenopathy measuring 4.8 right 3.6 x 2.6 cm. It appeared to have decreased slightly compared to the pretreatment PET/CT. There was persistent groundglass density in the posterior segment right upper lobe and there are small bilateral pleural effusions. There was no evidence of metastatic disease. With those findings, she was eligible for maintenance therapy with durvalumab. She began cycle 1 on 09/15/2019. She tolerated it well, and she the continued treatment at 2-week intervals. As of 12/08/2019 she received cycle 7 of durvalumab. During that time, she had been mildly anemic. Her serum iron studies showed low transferrin saturation 19.8%, suggestive of possible iron deficiency. She began on oral iron supplementation. In the meantime, a repeat brain MRI on 10/29/2019 showed a new metastatic lesion in the right occipital lobe measuring 11 mm. There was surrounding vasogenic edema. There was no evidence of recurrent tumor at the left frontal lobe resection site. She was seen by the radiation oncologist at [facility], and she underwent CyberKnife radiosurgery. Treatment included a single fraction of 2400 cGy delivered on 11/20/2019. She tolerated it well. In the meantime, she continued her durvalumab infusions every 2 weeks. Her other medical illnesses include hypertension, hyperlipidemia, coronary artery disease, congestive heart failure, carotid stenosis, peripheral arterial disease, and renal artery stenosis. She has a history of C. difficile colitis. Her surgical procedures have included coronary angioplasty/stent placement, triple coronary artery bypass, femoropopliteal bypass bilaterally, aortofemoral bypass, and renal artery stent placement. She has a history of smoking since age 17, but less than 1/2 pack of cigarettes daily. She quit smoking in May 2019. She had heavy alcohol use in the past, but she quit drinking in 2003. INTERIM HSTORY: Restaging chest CT on 02/12/2020 showed improvement in the left hilar mass compared to the previous study from August, measuring 2.5 x 2.0 x 2.6 cm. The mass was noted to be inseparable from the left main pulmonary artery. There was less narrowing of upper and lower lobe bronchi. Groundglass attenuation in the right upper lobe measuring 1.5 cm appeared unchanged. An additional area of groundglass attenuation in the left upper lobe also appeared unchanged. Left heart chambers were noted to be markedly enlarged. Also noted was severe atrophy of the left kidney. Repeat brain MRI on 03/12/2020 showed decrease in the size of the right occipital enhancing lesion measuring 6 mm compared to 10 mm on the previous study. There was stable enhancement along the margins of the resection cavity in the left frontal area. There were no new lesions identified. She continued her maintenance immunotherapy with durvalumab. Her repeat head MRI on 08/02/2020 showed a 7 x 3 mm enhancing nodule adjacent to the left frontal surgical site which appeared to be new from previous studies. A right occipital metastatic lesion had significantly decreased in size measuring 3.4 mm. A repeat MRI on 09/01/2020 reported mild progression of the solid component and intense enhancement involving the ovoid 8 x 5 mm nodule adjacent to the post surgical resection site in the left frontal lobe. This was felt to be very suspicious for recurrent tumor. There was no increase in the right occipital lobe nodule. With those findings, she was seen for follow-up by the radiation oncologist in [place]. It was felt that she was not having significant progression, and continued observation was recommended for the brain. In the meantime, she received cycle 25 of durvalumab on 08/16/2020, completing a year of treatment. Her restaging CT scans of the chest, abdomen, and pelvis on 11/02/2020 showed slight decrease in the left hilar neoplasm measuring 2.5 x 1.2 cm. There was a very slight increase in the subsolid nodule in the right upper lobe measuring 1.7 x 1.0 cm. Low-grade neoplasm was not excluded. There was evidence of chronic emphysema. There was no evidence of metastatic disease. With those findings she continued expectant management. Her chest CT on 01/03/2021 showed no change in the appearance of the lobulated left hilar mass measuring 2.5 x 1.2 cm. Bilateral groundglass focal infiltrates in both upper lobes also appeared unchanged. There was no mediastinal or hilar adenopathy noted. A repeat brain MRI on 01/04/2021 showed no change in the subdural collection over the left frontal lobe measuring 4.7 x 0.7 cm. An ovoid 5 mm enhancing nodule in the left frontal lobe also. Stable. A 4 mm area of enhancement in the right occipital lobe appeared consistent with a treated metastatic site. It still showed enhancement but no increase in size. Overall, the findings were stable. She is seen for a follow-up visit. She has been feeling fine. She has pretty good energy and activity tolerance. She is walking and doing all of her normal chores. Her ECOG score is 0. She has good appetite. She has no fever or night sweats. She has some chronic sinus symptoms, but those have improved with medication. She has only a little bit of cough. She is sometimes short of breath, but she says her breathing is pretty good. She does not complain of chest pain. She has no GI/ complaints other than a little bit of heartburn. She has no significant joint or bone pain. She has occasional orthostatic dizziness. She does not complain of headache and she has no focal neurologic symptoms. Medications: Atorvastatin Calcium 1 Tablet (of 80 mg) Oral daily, Bystolic 1 Tablet (of 5 mg) Oral daily, Captopril 1 Tablet (of 25 mg) Oral b.i.d., Ondansetron HCl 1 Tablet (of 4 mg) Oral b.i.d., Prochlorperazine Maleate 1 Tablet (of 10 mg) Oral b.i.d., Protonix 1 Tablet (of 40 mg) Tablet, enteric coated Oral daily Allergies: No Known Allergies. Vital Signs: Performed on January 27, 2021 14:55 Height - 60.00 in Weight - 129.8 lbs (LOW) BSA - 1.55 sq.m BMI - 25.35 Temperature - 97.6 F (LOW) Pulse - 67 /min Respiration - 18 /min BP - 126/69 mm(hg) O2 Sat - 98 % Pain - 0 Fatigue - 0 Physical Examination: Constitutional - She looks pretty good generally, Eyes - Sclerae nonicteric. Conjunctivae clear, ENMT - No lesions noted in the oral cavity, Hematologic/Lymphatic - No cervical, clavicular, or axillary adenopathy, Respiratory - Lungs are clear with some decrease in air movement bilaterally, Cardiovascular - Heart rhythm is regular. There is no murmur, gallop, or rub noted, Abdomen - Soft. Liver and spleen are not enlarged. There is no abdominal mass or ascites noted and there is no inguinal adenopathy, Extremities - There is slight edema. There are a few scattered ecchymoses, Neurologic - No focal neurologic deficits noted. Lab/Imaging: Test performed on January 27, 2021 13:39 Sodium 138 mmol/L Potassium 4.5 mmol/L Chloride 104 mmol/L CO2 25 mmol/L Anion Gap 13.5 BUN 10 mg/dL Creatinine 1.0 mg/dL Cr Clearance (Est) 41.3500 mL/min Glucose 87 mg/dL Osmolality - Calculated 284 mOsm/kg Calcium 8.4 mg/dL Protein, Total 6.8 g/dL Albumin 3.7 g/dL Globulin 3.1 g/dL Bilirubin, Total 0.5 mg/dL ALT (SGPT) 10 U/L AST (SGOT) 26 U/L Alkaline Phosphatase 62 IU/L WBC 7.6 10 3/uL RBC 3.96 10 6/uL HGB 12.3 g/dL HCT 38.0 % MCV 96.0 fL MCH 31.1 pg MCHC 32.4 g/dL RDW 13.5 % Platelet Count 194 10 3/cmm MPV 10.0 fL Neutrophils 4.61 10 3/uL Lymphocytes 1.9 10 3/uL Monocytes 0.8 10 3/uL Eosinophils 0.2 10 3/uL Basophils 0.1 10 3/uL Neutrophil % 60.5 % Lymphocyte % 24.7 % Monocyte % 10.8 % Eosinophil % 2.9 % Basophils % 0.8 % NRBC % 0 % Problem List: 1. Adenocarcinoma involving the hilar region of the left lung, stage SUMIT (T2b, N0, M1b), presenting in April 2019 with a single site of metastatic involvement in the left frontal lobe of the brain. She underwent resection of the left frontal lobe metastasis on 04/28/2019 followed by CyberKnife radiosurgery, completed on 06/04/2019. Pathology showed metastatic adenocarcinoma consistent with lung primary. The tumor was negative for ALK and ROS1 rearrangements, and EGFR and BRAF mutations were not detected. The tumor showed positive PD-L1 expression at 10% (membranous positivity). 3. She underwent CyberKnife radiosurgery to the site of brain involvement, completed on 06/04/2019. 4. She then underwent treatment to the primary lesion in the left lung with radiation concurrently with weekly carboplatin/paclitaxel chemotherapy. Radiation was completed on 08/01/2019. She received a total of 6 weekly infusions of chemotherapy. 5. Hypertension. 6. Hyperlipidemia. 7. Coronary artery disease with previous myocardial infarction and with triple coronary bypass in 2003. 8. Congestive heart failure. 9. Carotid stenosis with previous right carotid endarterectomy. 10. Peripheral arterial disease with previous aortofemoral bypass and femoropopliteal bypass bilaterally. 11. Renal artery stenosis with previous renal artery stent placement. 12. Chronic kidney disease. 13. Her records indicate a history of clostridium difficile colitis. Problems Addressed with this Encounter and Plan: 1. 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 She underwent resection of the left frontal lobe metastasis on 04/28/2019. Pathology showed metastatic adenocarcinoma consistent with lung primary. The tumor was negative for ALK and ROS1 rearrangements, and EGFR and BRAF mutations were not detected. The tumor showed positive PD-L1 expression at 10% (membranous positivity). She then underwent CyberKnife radiosurgery to the site of brain involvement, completed on 06/04/2019. She underwent treatment to the primary lesion in the left lung with radiation concurrently with weekly carboplatin/paclitaxel chemotherapy. Radiation was completed on 08/01/2019. She received a total of 6 weekly infusions of chemotherapy. She did show some response by follow-up chest CT. She began maintenance immunotherapy with nivolumab on 09/15/2019. She completed a year of maintenance immunotherapy. Her restaging CT scans showed continued slight decrease in the left hilar neoplasm. There was a slight increase in the right upper lobe pulmonary nodule, and low-grade neoplasm was not excluded. There was no evidence of metastatic disease. Given the findings, she continued expectant management. During follow-up she has continued to do well clinically. Her current chest CT shows stable mass in the left hilar area with no other findings to suggest disease progression. As such, she will continue on observation/expectant management. She will be scheduled for a follow-up visit with repeat chest CT in 3 months. She is aware that she does need to call us if there is any significant change in her symptoms. In the meantime, she also will need to be scheduled for monthly port flushes, I will try to get that arranged at [facility] in [place]. 2. Her repeat brain MRI on 10/29/2019 showed a new metastatic lesion in the right occipital lobe measuring 11 mm. There was surrounding vasogenic edema. There was no evidence of recurrent tumor at the left frontal lobe resection site. She was seen by the radiation oncologist at [facility], and she underwent CyberKnife radiosurgery. Treatment included a single fraction of 2400 cGy delivered on 11/20/2019. She had a good response. Follow-up head MRI studies in July and in August 2020 showed findings suspicious for progression at the site of the left frontal lobe resection. However, she was then seen in follow-up by the radiation oncologist at [facility], and it was recommended that she continue observation for the brain. Her repeat brain MRI on 01/04/2021 showed stable findings compared to prior studies in August and July 2020. As such, she continues expectant management. She will have a repeat head MRI prior to her next visit in 3 months. Signed By: Ray Wade M.D. <<Signature on File>>
== END 2021-01-27 13:01 | disposition home or self-care (01) ==
PROVIDERS: Visit Provider Internal Medicine Medical Oncology
DX: Z08 Encounter for follow-up examination after completed treatment for malignant neoplasm (principal); Z85.118 Personal history of other malignant neoplasm of bronchus and lung; Z85.841 Personal history of malignant neoplasm of brain; Q04.3 Other reduction deformities of brain; Z92.3 Personal history of irradiation; Z92.21 Personal history of antineoplastic chemotherapy; I10 Essential (primary) hypertension; E78.5 Hyperlipidemia, unspecified; I25.10 Atherosclerotic heart disease of native coronary artery without angina pectoris; Z95.1 Presence of aortocoronary bypass graft; I50.9 Heart failure, unspecified; N18.9 Chronic kidney disease, unspecified; I25.2 Old myocardial infarction; Z79.899 Other long term (current) drug therapy
CPT/HCPCS: 36415; 80053; 85025; 96523; 99214

== ENCOUNTER 2021-04-08 10:45 | Outpatient (CLI) | payer MEDICARE, OTHER, SELFPAY | END 2021-04-08 10:46 | disposition home or self-care (01) | LOC: ONCMED 10:49 | PROVIDERS: Visit Provider Internal Medicine Medical Oncology | DX: Z45.2 Encounter for adjustment and management of vascular access device (principal) | CPT/HCPCS: 96523 ==

== ENCOUNTER 2021-04-25 10:31 | Outpatient (CLI) | payer MEDICARE, OTHER, SELFPAY ==
--- NOTE | 2021-04-25 10:39 | MR_ITS ---
WS: [id number] MRI HEAD WITH CONTRAST TECHNIQUE: Sagittal T1, T2 axial, T2 axial FLAIR, axial susceptibility weighted imaging, axial diffus ion weighted images, and coronal T2 images were obtained. Pre and post-T1 axial and post T1 coronal i mages. ADC and FSPGR images. CLINICAL INFORMATION: LUNG CANCER COMPARISON: MRI January 04, 2021 and 09/01/2020 FINDINGS: No evidence of restricted diffusion to suggest acute ischemia. 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 Associated encephalomalacia and gliosis about the resection cavity. Ex vacuo dilatation of the left frontal horn. Postoperative enhancement and he mosiderin about the resection cavity.Stable incidental subdural hygroma overlying the left frontal lo be deep to the craniotomy. Tiny enhancing right occipital focus is unchanged. Trace T2 signal normality in this area. No evidenc e of increasing edema or mass effect to indicate progressed disease. No new enhancing lesions. Moderate periventricular white matter changes. Moderate parenchymal volume loss. Mild small vessel ch anges in the casper. Normal posterior fossa. Normal vascular flow voids at the skull base. No extra-axi al fluid collections. Paranasal sinuses and mastoid air cells are well aerated. MR/MR head wo/w con [id number] IMPRESSION: 1. No evidence of new or progressed disease compared to previous. 2. Stable left frontal craniotomy with stable resection cavity in the left fro ntal lobe. Associated encephalomalacia and gliosis with normal postoperative en hancement about the resection cavity. 3. Tiny punctate focus of enhancement in the right occipital lobe is unchanged . 4. Stable moderate white matter changes with moderate parenchymal volume loss. 5. No other significant findings.
[2021-04-25] MEDS: gadobenate dimeglumine 20 mL vial IV (11:18)
== END 2021-04-25 10:32 | disposition home or self-care (01) ==
PROVIDERS: Visit Provider Internal Medicine Medical Oncology
DX: C34.02 Malignant neoplasm of left main bronchus (principal)
CPT/HCPCS: 70553; A9577

== ENCOUNTER 2021-04-26 08:47 | Outpatient (CLI) | payer MEDICARE, OTHER, SELFPAY ==
--- NOTE | 2021-04-26 09:21 | CT_ITS ---
WS: [id number] CT CHEST TECHNIQUE: Contrast enhanced CT of the chest with coronal and sagittal reformatted images. CLINICAL INFORMATION: LUNG CANCER COMPARISON: CT chest 01/03/2021 and 11/02/2020 DLP: 584.[address] scans at [facility] use at least one of these dose optimization techniques: automat ed exposure control; mA and/or kV adjustment per patient size (includes targeted exams where dose is matched to clinical indication); or iterative reconstruction. FINDINGS: Moderate chronic emphysematous changes. Sternotomy. Prior CABG. Cholelithiasis. Dense vascular calcif ication. Left renal agenesis. Spiculated left hilar mass is again seen and today measures 2.3 x 1.2 c m unchanged since the prior 2 examinations. No evidence of disease progression. Hazy groundglass opac ity right upper lobe measuring 10 x 17 mm is also stable. A few hazy opacities in the left perihilar region similar to previous may be infectious/inflammatory versus treatment-related changes. No new lopez spicious pulmonary parenchymal opacities. No mediastinal adenopathy. Cholelithiasis. Diffuse fatty infiltration liver. Left renal agenesis. Adr enal glands are normal. No axillary lymphadenopathy. Mild thoracic kyphosis. CT/CT chest w con* [id number] IMPRESSION: 1. No change in the left hilar soft tissue mass measuring 1.2 x 2.3 CM. 2. Stable hazy right upper lobe groundglass opacity measuring 10 x 17 mm. 3. Patchy hazy left perihilar infiltrates are stable in appearance and may be infectious/inflammatory versus treatment related change 4. Moderate chronic emphysematous changes. 5. Cholelithiasis.
[2021-04-26 10:01] LABS: Blood Urea Nitrogen 15 mg/dL (8-23)
[2021-04-26] MEDS: iodixanol 320 mg/mL 100mL Btl IV (10:10)
== END 2021-04-26 08:48 | disposition home or self-care (01) ==
PROVIDERS: Visit Provider Internal Medicine Medical Oncology
DX: C34.02 Malignant neoplasm of left main bronchus (principal); K80.20 Calculus of gallbladder without cholecystitis without obstruction
CPT/HCPCS: 71260; 82565; 84520; Q9967

== ENCOUNTER 2021-05-03 10:29 | Outpatient (CLI) | payer MEDICARE, OTHER, SELFPAY ==
[2021-05-03 11:15] LABS: Basophils # 0.1 10^3/uL (0.0-0.1); Basophils % 0.5 %; Eosinophils # 0.2 10^3/uL (0.0-0.8); Eosinophils % 1.8 %; Hematocrit 39.4 % (37.0-47.0); Hemoglobin 12.6 g/dL (11.5-15.3); Lymphocytes % 20.2 %; Mean Platelet Volume 9.5 fL (7.4-10.4); Monocytes # 0.7 10^3/uL (0.2-0.9); Monocytes % 7.4 %; Neutrophils # 6.73 10^3/uL (1.8-7.7); Neutrophils % 69.7 %; Nucleated Red Blood Cells % 0 %; Platelet Count 197 10^3/cmm (130-400); Red Blood Count 4.06 10^6/uL (4.1-5.3); Red Cell Distribution Width 13.2 % (12.1-15.1); White Blood Count 9.7 10^3/uL (4.0-10.0)
[2021-05-03] MEDS: alteplase 1 mg/mL SDV 2 mL 2 MG IV (11:18)
[2021-05-03 11:37] LABS: Alanine Aminotransferase 9 U/L (0-33); Albumin Level 3.6 g/dL (3.5-5.2); Alkaline Phosphatase 68 IU/L (35-105); Anion Gap 13.2 (5-19); Aspartate Amino Transferase 24 U/L (0-32); Blood Urea Nitrogen 13 mg/dL (8-23); Calcium 8.7 mg/dL (8.5-10.5); Carbon Dioxide 25 mmol/L (22-29); Chloride 101 mmol/L (98-107); Globulin 2.9 g/dL (1.3-4.6); Glucose 100 mg/dL (65-115); Osmolality Calculated 280 mOsm/kg (285-295); Potassium 4.2 mmol/L (3.5-5.1); Sodium 135 mmol/L (136-145); Total Bilirubin 0.3 mg/dL (0.15-1.2); Total Protein 6.5 g/dL (6.6-8.7)
--- NOTE | 2021-05-03 19:30 | ONC FU_ITS ---
Dr. Wade Patient Follow-Up Note Patient: Lola Lozano Unit #: [id number]: 1940 Dicatated By: Ray Wade M.D.Date of Visit:May 03, 2021 Onc Med Follow-up/Prog Note Chief Complaint: Lung cancer. 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 In April 2019 she was admitted to [facility] in [place] after presenting with confusion and frequent falls. Her brain MRI showed a 2.5 x 3.8 x 2.3 cm left anterior frontal convexity mass with surrounding edema extending into the frontal, temporal, and anterior parietal subcortical and periventricular white matter. Her chest x-ray showed a left hilar mass. Her initial staging CT scans showed an irregularly marginated soft tissue density mass in the left suprahilar region measuring 4.5 cm. There was encasement and obstruction of a segmental branch of the left upper lobe bronchus. There was no evidence of mediastinal mass/adenopathy. A subtle opacity in the upper lobe of the right lung was felt to represent minimal infiltrate versus ill-defined small nodule. There were no other findings of metastatic disease. On 04/28/2019 she underwent left frontal craniotomy with resection of the mass. Pathology showed metastatic adenocarcinoma consistent with lung primary. The tumor was found to be negative for the ALK and ROS1 gene rearrangements. EGFR and BRAF mutations were not detected. PD-L1 expression was positive at 10% (membranous positivity). Her staging PET/CT on 05/23/2019 showed an FDG avid left hilar mass measuring 4.9 x 4.2 cm, SUV 13.84. A 1.3 cm nodular density in the upper lobe of the right lung showed no significant FDG uptake, SUV 0.68, consistent with benign disease. There was mild focal increased metabolic activity in the distal esophagus, maximum SUV 4.76, felt to be consistent with inflammatory changes. There was no evidence of mediastinal or distant metastatic disease. Follow recovery from the surgery she underwent CyberKnife radiosurgery, completed on 06/04/2019. She then underwent radiation concurrently with weekly carboplatin/paclitaxel chemotherapy to the primary lesion in the left lung. She completed her radiation on 08/01/2019. She received her sixth weekly infusion of carboplatin/paclitaxel on 07/30/2018. Overall, she tolerated the treatment well. I had seen her initially on 08/05/2019. At that point she was still having some difficulty with swallowing and eating following the chemoradiation. She was having daily epistaxis, and she also was having significant diarrhea. She was treated empirically with Levaquin and acyclovir. Her stool was tested and was negative for C. difficile. Restaging CT of the chest on 08/12/2019 showed persistent left hilar region mass or lymphadenopathy measuring 4.8 right 3.6 x 2.6 cm. It appeared to have decreased slightly compared to the pretreatment PET/CT. There was persistent groundglass density in the posterior segment right upper lobe and there are small bilateral pleural effusions. There was no evidence of metastatic disease. With those findings, she was eligible for maintenance therapy with durvalumab. She began cycle 1 on 09/15/2019. She tolerated it well, and she the continued treatment at 2-week intervals. As of 12/08/2019 she received cycle 7 of durvalumab. During that time, she had been mildly anemic. Her serum iron studies showed low transferrin saturation 19.8%, suggestive of possible iron deficiency. She began on oral iron supplementation. In the meantime, a repeat brain MRI on 10/29/2019 showed a new metastatic lesion in the right occipital lobe measuring 11 mm. There was surrounding vasogenic edema. There was no evidence of recurrent tumor at the left frontal lobe resection site. She was seen by the radiation oncologist at [facility], and she underwent CyberKnife radiosurgery. Treatment included a single fraction of 2400 cGy delivered on 11/20/2019. She tolerated it well. In the meantime, she continued her durvalumab infusions every 2 weeks. Her other medical illnesses include hypertension, hyperlipidemia, coronary artery disease, congestive heart failure, carotid stenosis, peripheral arterial disease, and renal artery stenosis. She has a history of C. difficile colitis. Her surgical procedures have included coronary angioplasty/stent placement, triple coronary artery bypass, femoropopliteal bypass bilaterally, aortofemoral bypass, and renal artery stent placement. She has a history of smoking since age 17, but less than 1/2 pack of cigarettes daily. She quit smoking in May 2019. She had heavy alcohol use in the past, but she quit drinking in 2003. INTERIM HSTORY: Restaging chest CT on 02/12/2020 showed improvement in the left hilar mass compared to the previous study from August, measuring 2.5 x 2.0 x 2.6 cm. The mass was noted to be inseparable from the left main pulmonary artery. There was less narrowing of upper and lower lobe bronchi. Groundglass attenuation in the right upper lobe measuring 1.5 cm appeared unchanged. An additional area of groundglass attenuation in the left upper lobe also appeared unchanged. Left heart chambers were noted to be markedly enlarged. Also noted was severe atrophy of the left kidney. Repeat brain MRI on 03/12/2020 showed decrease in the size of the right occipital enhancing lesion measuring 6 mm compared to 10 mm on the previous study. There was stable enhancement along the margins of the resection cavity in the left frontal area. There were no new lesions identified. She continued her maintenance immunotherapy with durvalumab. Her repeat head MRI on 08/02/2020 showed a 7 x 3 mm enhancing nodule adjacent to the left frontal surgical site which appeared to be new from previous studies. A right occipital metastatic lesion had significantly decreased in size measuring 3.4 mm. A repeat MRI on 09/01/2020 reported mild progression of the solid component and intense enhancement involving the ovoid 8 x 5 mm nodule adjacent to the post surgical resection site in the left frontal lobe. This was felt to be very suspicious for recurrent tumor. There was no increase in the right occipital lobe nodule. With those findings, she was seen for follow-up by the radiation oncologist in [place]. It was felt that she was not having significant progression, and continued observation was recommended for the brain. In the meantime, she received cycle 25 of durvalumab on 08/16/2020, completing a year of treatment. Her restaging CT scans of the chest, abdomen, and pelvis on 11/02/2020 showed slight decrease in the left hilar neoplasm measuring 2.5 x 1.2 cm. There was a very slight increase in the subsolid nodule in the right upper lobe measuring 1.7 x 1.0 cm. Low-grade neoplasm was not excluded. There was evidence of chronic emphysema. There was no evidence of metastatic disease. Her chest CT on 01/03/2021 showed no change in the appearance of the lobulated left hilar mass measuring 2.5 x 1.2 cm. Bilateral groundglass focal infiltrates in both upper lobes also appeared unchanged. There was no mediastinal or hilar adenopathy noted. A repeat brain MRI on 01/04/2021 showed no change in the subdural collection over the left frontal lobe measuring 4.7 x 0.7 cm. An ovoid 5 mm enhancing nodule in the left frontal lobe also. Stable. A 4 mm area of enhancement in the right occipital lobe appeared consistent with a treated metastatic site. It still showed enhancement but no increase in size. Overall, the findings were stable. She continued expectant management. Repeat head MRI on 04/25/2021 showed postoperative changes of left frontal craniotomy with resection cavity in the left frontal lobe and associated encephalomalacia and gliosis about the resection cavity. A tiny enhancing right occipital focus was unchanged. There was no evidence for new or progressed disease compared to previous studies. Her restaging chest CT on 04/26/2021 showed no change in the left hilar soft tissue mass measuring 1.2 x 2.3 cm. A hazy right upper lobe groundglass opacity measuring 10 x 17 mm also appeared stable as did patchy hazy left perihilar infiltrates. Overall, there was no evidence of disease progression. She is seen for a follow-up visit. She has been feeling very good. She says she gets slower if she tries to do too much, but she has pretty good energy and she has normal activity. ECOG score is 0. Her appetite is okay, though she is eating only two meals a day. She has no fever or night sweats. She has a little bit of sinus drainage. She has just a little cough. She does have some shortness of breath with activity. She does not complain of chest pain. Her acid reflux is adequately managed with medication. She has no other GI or complaints. She sometimes has joint pain, but not very often. She does not complain of headache. She does get dizzy if she bends over too much. She has no numbness/paresthesia or other focal neurologic symptoms. Medications: Atorvastatin Calcium 1 Tablet (of 80 mg) Oral daily, Bystolic 1 Tablet (of 5 mg) Oral daily, Captopril 1 Tablet (of 25 mg) Oral b.i.d., Ondansetron HCl 1 Tablet (of 4 mg) Oral b.i.d., Prochlorperazine Maleate 1 Tablet (of 10 mg) Oral b.i.d., Protonix 1 Tablet (of 40 mg) Tablet, enteric coated Oral daily Allergies: No Known Allergies. Vital Signs: Performed on May 03, 2021 12:42 Height - 60.00 in Weight - 129.4 lbs (LOW) BSA - 1.55 sq.m BMI - 25.27 Temperature - 97.8 F (LOW) Pulse - 61 /min Respiration - 16 /min BP - 151/84 mm(hg) (HIGH) O2 Sat - 96 % Pain - 0 Physical Examination: Constitutional - She looks pretty good generally, Eyes - Sclerae nonicteric. Conjunctivae clear, ENMT - No lesions noted in the oral cavity, Hematologic/Lymphatic - No cervical, clavicular, or axillary adenopathy, Respiratory - Lungs are clear with some decrease in air movement bilaterally, Cardiovascular - Heart rhythm is regular. There is no murmur, gallop, or rub noted, Abdomen - Soft. Liver and spleen are not enlarged. There is no abdominal mass or ascites noted and there is no inguinal adenopathy, Extremities - No edema, Neurologic - No focal neurologic deficits noted. Lab/Imaging: Test performed on May 03, 2021 11:00 Sodium 135 mmol/L Potassium 4.2 mmol/L Chloride 101 mmol/L CO2 25 mmol/L Anion Gap 13.2 BUN 13 mg/dL Creatinine 1.0 mg/dL Cr Clearance (Est) 41.3500 mL/min Glucose 100 mg/dL Osmolality - Calculated 280 mOsm/kg Calcium 8.7 mg/dL Protein, Total 6.5 g/dL Albumin 3.6 g/dL Globulin 2.9 g/dL Bilirubin, Total 0.3 mg/dL ALT (SGPT) 9 U/L AST (SGOT) 24 U/L Alkaline Phosphatase 68 IU/L WBC 9.7 10 3/uL RBC 4.06 10 6/uL HGB 12.6 g/dL HCT 39.4 % MCV 97.0 fl MCH 31.0 pg MCHC 32.0 g/dL RDW 13.2 % Platelet Count 197 10 3/cmm MPV 9.5 fL Neutrophils 6.73 10 3/uL Lymphocytes 2.0 10 3/uL Monocytes 0.7 10 3/uL Eosinophils 0.2 10 3/uL Basophils 0.1 10 3/uL Neutrophil % 69.7 % Lymphocyte % 20.2 % Monocyte % 7.4 % Eosinophil % 1.8 % Basophils % 0.5 % NRBC % 0 % Problem List: 1. Adenocarcinoma involving the hilar region of the left lung, stage SUMIT (T2b, N0, M1b), presenting in April 2019 with a single site of metastatic involvement in the left frontal lobe of the brain. She underwent resection of the left frontal lobe metastasis on 04/28/2019 followed by CyberKnife radiosurgery, completed on 06/04/2019. Pathology showed metastatic adenocarcinoma consistent with lung primary. The tumor was negative for ALK and ROS1 rearrangements, and EGFR and BRAF mutations were not detected. The tumor showed positive PD-L1 expression at 10% (membranous positivity). 3. She underwent CyberKnife radiosurgery to the site of brain involvement, completed on 06/04/2019. 4. She then underwent treatment to the primary lesion in the left lung with radiation concurrently with weekly carboplatin/paclitaxel chemotherapy. Radiation was completed on 08/01/2019. She received a total of 6 weekly infusions of chemotherapy. 5. Hypertension. 6. Hyperlipidemia. 7. Coronary artery disease with previous myocardial infarction and with triple coronary bypass in 2003. 8. Congestive heart failure. 9. Carotid stenosis with previous right carotid endarterectomy. 10. Peripheral arterial disease with previous aortofemoral bypass and femoropopliteal bypass bilaterally. 11. Renal artery stenosis with previous renal artery stent placement. 12. Chronic kidney disease. 13. Her records indicate a history of clostridium difficile colitis. Problems Addressed with this Encounter and Plan: 1. 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 She underwent resection of the left frontal lobe metastasis on 04/28/2019. Pathology showed metastatic adenocarcinoma consistent with lung primary. The tumor was negative for ALK and ROS1 rearrangements, and EGFR and BRAF mutations were not detected. The tumor showed positive PD-L1 expression at 10% (membranous positivity). She then underwent CyberKnife radiosurgery to the site of brain involvement, completed on 06/04/2019. She underwent treatment to the primary lesion in the left lung with radiation concurrently with weekly carboplatin/paclitaxel chemotherapy. Radiation was completed on 08/01/2019. She received a total of 6 weekly infusions of chemotherapy. She did show some response by follow-up chest CT. She began maintenance immunotherapy with nivolumab on 09/15/2019. She completed a year of maintenance immunotherapy. Her restaging CT scans showed continued slight decrease in the left hilar neoplasm. There was a slight increase in the right upper lobe pulmonary nodule, and low-grade neoplasm was not excluded. There was no evidence of metastatic disease. Given the findings, she was then followed expectantly. During follow-up her clinical status has remained stable. Thus far there has been no evidence of progression of the lung cancer. She continues on expectant management. She will be scheduled for follow-up visit with repeat chest CT scan in 3 months. 2. Her repeat brain MRI on 10/29/2019 showed a new metastatic lesion in the right occipital lobe measuring 11 mm. There was surrounding vasogenic edema. There was no evidence of recurrent tumor at the left frontal lobe resection site. She was seen by the radiation oncologist at [facility], and she underwent CyberKnife radiosurgery. Treatment included a single fraction of 2400 cGy delivered on 11/20/2019. She had a good response. Follow-up head MRI studies in July and in August 2020 showed findings suspicious for progression at the site of the left frontal lobe resection. However, she was then seen in follow-up by the radiation oncologist at [facility], and it was recommended that she continue observation for the brain. Her further surveillance MRI studies have remained stable with no definite evidence of disease progression. As such, she continues expectant management. She will have repeat brain MRI with her follow-up visit in 3 months. Her repeat brain MRI on 01/04/2021 showed stable findings compared to prior studies in August and July 2020. As such, she continues expectant management. She will have a repeat head MRI prior to her next visit in 3 months. Signed By: Ray Wade M.D. <<Signature on File>>
== END 2021-05-03 10:30 | disposition home or self-care (01) ==
LOC: ONCMED 10:32
PROVIDERS: Visit Provider Internal Medicine Medical Oncology
DX: Z08 Encounter for follow-up examination after completed treatment for malignant neoplasm (principal); Z85.118 Personal history of other malignant neoplasm of bronchus and lung; Z85.89 Personal history of malignant neoplasm of other organs and systems; Z79.899 Other long term (current) drug therapy; Z92.21 Personal history of antineoplastic chemotherapy; Z92.3 Personal history of irradiation
CPT/HCPCS: 36415; 36593; 80053; 85025; 96374; 99214; J2997

== ENCOUNTER 2021-06-03 09:26 | Outpatient (CLI) | payer MEDICARE, OTHER, SELFPAY | END 2021-06-03 09:27 | disposition home or self-care (01) | PROVIDERS: Visit Provider Internal Medicine Medical Oncology | DX: Z45.2 Encounter for adjustment and management of vascular access device (principal) | CPT/HCPCS: 96523 ==

== ENCOUNTER 2021-07-01 10:30 | Outpatient (CLI) | payer MEDICARE, OTHER, SELFPAY | END 2021-07-01 10:31 | disposition home or self-care (01) | LOC: ONCMED 10:31 | PROVIDERS: Visit Provider Internal Medicine Medical Oncology | DX: Z45.2 Encounter for adjustment and management of vascular access device (principal) | CPT/HCPCS: 96523 ==

== ENCOUNTER 2021-07-25 11:51 | Outpatient (CLI) | payer MEDICARE, OTHER, SELFPAY ==
--- NOTE | 2021-07-25 12:36 | MR_ITS ---
WS: [id number] MRI HEAD WITH CONTRAST TECHNIQUE: Sagittal T1, T2 axial, T2 axial FLAIR, axial susceptibility weighted imaging, axial diffus ion weighted images, and coronal T2 images were obtained. Pre and post-T1 axial and post T1 coronal i mages. ADC and FSPGR images. CLINICAL INFORMATION: SECONDARY MALIGNANT NEOPLASM OF BRAIN COMPARISON: MRI April 25, 2021 multiple prior MRIs dating back to October 29, 2019 FINDINGS: Prior postoperative changes left frontal craniotomy with resection cavity in the left frontal lobe. A ssociated encephalomalacia and gliosis about the resection cavity is unchanged from previous. Ex vacu o dilatation left frontal horn lateral ventricle. Stable postoperative enhancement and hemosiderin ab out the resection cavity. Stable subdural hygroma overlying the left frontal lobe is unchanged. Tiny amount of gliosis and tiny focus of enhancement in the right occipital lobe is less prominent to day. Tiny minuscule focus of enhancement. No evidence of restricted diffusion to suggest acute ischemia. Ventricular system and basal cisterns are patent. Moderate small vessel changes with moderate parenchymal volume loss. Normal posterior fos sa. Normal vascular flow voids at the skull base. Mucosal thickening in the mastoid air cells. Parana ilir sinuses are well aerated. Normal optic chiasm and pituitary infundibulum. Moderate symmetric atro phy temporal lobes and hippocampal formations. MR/MR head wo/w con [id number] IMPRESSION: 1. No evidence of new or progressed disease compared to previous. Stable left frontal craniotomy with stable resection cavity in the left frontal lobe. 2. Associated encephalomalacia and gliosis with normal postoperative enhanceme nt about the resection cavity is unchanged. 3. Tiny punctate focus of enhancement in the right occipital lobe is barely vi sualized today. 4. No other significant changes from previous.
[2021-07-25 13:03] LABS: Blood Urea Nitrogen 9 mg/dL (8-23)
[2021-07-25] MEDS: gadobenate dimeglumine 20 mL vial IV (13:42)
== END 2021-07-25 11:52 | disposition home or self-care (01) ==
PROVIDERS: Visit Provider Internal Medicine Medical Oncology
DX: C34.02 Malignant neoplasm of left main bronchus (principal); C79.31 Secondary malignant neoplasm of brain; G93.89 Other specified disorders of brain; Z79.899 Other long term (current) drug therapy
CPT/HCPCS: 36415; 70553; 82565; 84520; A9577

== ENCOUNTER 2021-07-29 09:57 | Outpatient (CLI) | payer MEDICARE, OTHER, SELFPAY ==
--- NOTE | 2021-07-29 | CT_ITS ---
WS: [id number] Exam: CT chest w con* [id number] Date/Time of Exam: 07/29/2021 10:52 AM Reason For Exam: LUNG CANCER DLP: 577.[address] scans at [facility] use at least one of these dose optimization techniques: automated e xposure control; mA and/or kV adjustment per patient size (includes targeted exams where dose is matc hed to clinical indication); or iterative reconstruction. Comparison 04/26/2021. Left hilar mass is unchanged in appearance and still measures approximately 1.2 x 2.3 cm. Associated mild chronic infiltrate seen just lateral to the left hilum. This is unchanged. Groundglass densities seen in the lateral right upper lobe is also unchanged. No other discrete nodules or masses identifi ed in either lung. The airway is patent. The thoracic aorta is normal in caliber. The central pulmona ry arteries are clear. No significant mediastinal lymphadenopathy. Coronary artery calcifications. No pericardial or pleural effusion. Normal thyroid tissue. Status post CABG surgery. No destructive bon e lesions are seen. CT/CT chest w con* [id number] IMPRESSION: 1. Left hilar soft tissue mass measuring approximately 1.2 x 2.3 cm stable in a ppearance. Stable appearing left perihilar infiltrates likely chronic. 2. Stable groundglass opacity in the right upper lobe. Mild emphysematous gonzáles e. 3. No new mass or lymphadenopathy in the chest.
[2021-07-29] MEDS: iodixanol 320 mg/mL 100mL Btl IV (11:21)
== END 2021-07-29 09:58 | disposition home or self-care (01) ==
PROVIDERS: Visit Provider Internal Medicine Medical Oncology
DX: C34.90 Malignant neoplasm of unspecified part of unspecified bronchus or lung (principal)
CPT/HCPCS: 71260; Q9967

== ENCOUNTER 2021-08-09 11:17 | Outpatient (CLI) | payer MEDICARE, OTHER, SELFPAY ==
[2021-08-09 12:15] LABS: Basophils # 0.1 10^3/uL (0.0-0.1); Basophils % 0.6 %; Eosinophils # 0.2 10^3/uL (0.0-0.8); Eosinophils % 1.9 %; Hematocrit 36.9 % (37.0-47.0); Hemoglobin 12.3 g/dL (11.5-15.3); Lymphocytes # 1.9 10^3/uL (0.8-4.8); Lymphocytes % 23.8 %; Mean Corpuscular HGB Conc 33.3 g/dL (30.0-36.0); Mean Corpuscular Hemoglobin 31.1 pg (28.0-34.0); Mean Corpuscular Volume 93.2 fl (81-99); Mean Platelet Volume 9.7 fL (7.4-10.4); Monocytes # 0.7 10^3/uL (0.2-0.9); Monocytes % 9.1 %; Neutrophils # 5.11 10^3/uL (1.8-7.7); Neutrophils % 64.2 %; Nucleated Red Blood Cells % 0 %; Platelet Count 233 10^3/cmm (130-400); Red Blood Count 3.96 10^6/uL (4.1-5.3); Red Cell Distribution Width 13.2 % (12.1-15.1)
[2021-08-09 12:22] LABS: Alanine Aminotransferase 6 U/L (0-33); Albumin Level 3.7 g/dL (3.5-5.2); Alkaline Phosphatase 55 IU/L (35-105); Anion Gap 16.3 (5-19); Aspartate Amino Transferase 19 U/L (0-32); Blood Urea Nitrogen 13 mg/dL (8-23); Calcium 8.6 mg/dL (8.5-10.5); Carbon Dioxide 23 mmol/L (22-29); Chloride 105 mmol/L (98-107); Globulin 2.3 g/dL (1.3-4.6); Glucose 86 mg/dL (65-115); Osmolality Calculated 289 mOsm/kg (285-295); Potassium 4.3 mmol/L (3.5-5.1); Sodium 140 mmol/L (136-145); Total Bilirubin 0.4 mg/dL (0.15-1.2)
--- NOTE | 2021-08-13 10:46 | ONC FU_ITS ---
Dr. Wade Patient Follow-Up Note Patient: Lola Lozano Unit #: [id number]: 1940 Dicatated By: Ray Wade M.D.Date of Visit:Aug 09, 2021 Onc Med Follow-up/Prog Note Chief Complaint: Lung cancer. 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 In April 2019 she was admitted to [facility] in [place] after presenting with confusion and frequent falls. Her brain MRI showed a 2.5 x 3.8 x 2.3 cm left anterior frontal convexity mass with surrounding edema extending into the frontal, temporal, and anterior parietal subcortical and periventricular white matter. Her chest x-ray showed a left hilar mass. Her initial staging CT scans showed an irregularly marginated soft tissue density mass in the left suprahilar region measuring 4.5 cm. There was encasement and obstruction of a segmental branch of the left upper lobe bronchus. There was no evidence of mediastinal mass/adenopathy. A subtle opacity in the upper lobe of the right lung was felt to represent minimal infiltrate versus ill-defined small nodule. There were no other findings of metastatic disease. On 04/28/2019 she underwent left frontal craniotomy with resection of the mass. Pathology showed metastatic adenocarcinoma consistent with lung primary. The tumor was found to be negative for the ALK and ROS1 gene rearrangements. EGFR and BRAF mutations were not detected. PD-L1 expression was positive at 10% (membranous positivity). Her staging PET/CT on 05/23/2019 showed an FDG avid left hilar mass measuring 4.9 x 4.2 cm, SUV 13.84. A 1.3 cm nodular density in the upper lobe of the right lung showed no significant FDG uptake, SUV 0.68, consistent with benign disease. There was mild focal increased metabolic activity in the distal esophagus, maximum SUV 4.76, felt to be consistent with inflammatory changes. There was no evidence of mediastinal or distant metastatic disease. Follow recovery from the surgery she underwent CyberKnife radiosurgery, completed on 06/04/2019. She then underwent radiation concurrently with weekly carboplatin/paclitaxel chemotherapy to the primary lesion in the left lung. She completed her radiation on 08/01/2019. She received her sixth weekly infusion of carboplatin/paclitaxel on 07/30/2018. Overall, she tolerated the treatment well. I had seen her initially on 08/05/2019. At that point she was still having some difficulty with swallowing and eating following the chemoradiation. She was having daily epistaxis, and she also was having significant diarrhea. She was treated empirically with Levaquin and acyclovir. Her stool was tested and was negative for C. difficile. Restaging CT of the chest on 08/12/2019 showed persistent left hilar region mass or lymphadenopathy measuring 4.8 right 3.6 x 2.6 cm. It appeared to have decreased slightly compared to the pretreatment PET/CT. There was persistent groundglass density in the posterior segment right upper lobe and there are small bilateral pleural effusions. There was no evidence of metastatic disease. With those findings, she was eligible for maintenance therapy with durvalumab. She began cycle 1 on 09/15/2019. She tolerated it well, and she the continued treatment at 2-week intervals. As of 12/08/2019 she received cycle 7 of durvalumab. During that time, she had been mildly anemic. Her serum iron studies showed low transferrin saturation 19.8%, suggestive of possible iron deficiency. She began on oral iron supplementation. In the meantime, a repeat brain MRI on 10/29/2019 showed a new metastatic lesion in the right occipital lobe measuring 11 mm. There was surrounding vasogenic edema. There was no evidence of recurrent tumor at the left frontal lobe resection site. She was seen by the radiation oncologist at [facility], and she underwent CyberKnife radiosurgery. Treatment included a single fraction of 2400 cGy delivered on 11/20/2019. She tolerated it well. In the meantime, she continued her durvalumab infusions every [address] on 02/12/2020 showed improvement in the left hilar mass compared to the previous study from August, measuring 2.5 x 2.0 x 2.6 cm. The mass was noted to be inseparable from the left main pulmonary artery. There was less narrowing of upper and lower lobe bronchi. Groundglass attenuation in the right upper lobe measuring 1.5 cm appeared unchanged. An additional area of groundglass attenuation in the left upper lobe also appeared unchanged. Left heart chambers were noted to be markedly enlarged. Also noted was severe atrophy of the left kidney. Repeat brain MRI on 03/12/2020 showed decrease in the size of the right occipital enhancing lesion measuring 6 mm compared to 10 mm on the previous study. There was stable enhancement along the margins of the resection cavity in the left frontal area. There were no new lesions identified. She continued her maintenance immunotherapy with durvalumab. Her repeat head MRI on 08/02/2020 showed a 7 x 3 mm enhancing nodule adjacent to the left frontal surgical site which appeared to be new from previous studies. A right occipital metastatic lesion had significantly decreased in size measuring 3.4 mm. A repeat MRI on 09/01/2020 reported mild progression of the solid component and intense enhancement involving the ovoid 8 x 5 mm nodule adjacent to the post surgical resection site in the left frontal lobe. This was felt to be very suspicious for recurrent tumor. There was no increase in the right occipital lobe nodule. With those findings, she was seen for follow-up by the radiation oncologist in [place]. It was felt that she was not having significant progression, and continued observation was recommended for the brain. In the meantime, she received cycle 25 of durvalumab on 08/16/2020, completing a year of treatment. Her other medical illnesses include hypertension, hyperlipidemia, coronary artery disease, congestive heart failure, carotid stenosis, peripheral arterial disease, and renal artery stenosis. She has a history of C. difficile colitis. Her surgical procedures have included coronary angioplasty/stent placement, triple coronary artery bypass, femoropopliteal bypass bilaterally, aortofemoral bypass, and renal artery stent placement. She has a history of smoking since age 17, but less than 1/2 pack of cigarettes daily. She quit smoking in May 2019. She had heavy alcohol use in the past, but she quit drinking in 2003. INTERIM HSTORY: Her restaging CT scans of the chest, abdomen, and pelvis on 11/02/2020 showed slight decrease in the left hilar neoplasm measuring 2.5 x 1.2 cm. There was a very slight increase in the subsolid nodule in the right upper lobe measuring 1.7 x 1.0 cm. Low-grade neoplasm was not excluded. There was evidence of chronic emphysema. There was no evidence of metastatic disease. Her chest CT on 01/03/2021 showed no change in the appearance of the lobulated left hilar mass measuring 2.5 x 1.2 cm. Bilateral groundglass focal infiltrates in both upper lobes also appeared unchanged. There was no mediastinal or hilar adenopathy noted. A repeat brain MRI on 01/04/2021 showed no change in the subdural collection over the left frontal lobe measuring 4.7 x 0.7 cm. An ovoid 5 mm enhancing nodule in the left frontal lobe also. Stable. A 4 mm area of enhancement in the right occipital lobe appeared consistent with a treated metastatic site. It still showed enhancement but no increase in size. Overall, the findings were stable. Repeat head MRI on 04/25/2021 showed postoperative changes of left frontal craniotomy with resection cavity in the left frontal lobe and associated encephalomalacia and gliosis about the resection cavity. A tiny enhancing right occipital focus was unchanged. There was no evidence for new or progressed disease compared to previous studies. Her restaging chest CT on 04/26/2021 showed no change in the left hilar soft tissue mass measuring 1.2 x 2.3 cm. A hazy right upper lobe groundglass opacity measuring 10 x 17 mm also appeared stable as did patchy hazy left perihilar infiltrates. Overall, there was no evidence of disease progression. She continued expectant management. Repeat head MRI on 07/25/2021 showed postoperative changes of left frontal craniotomy with resection cavity in the left frontal lobe. Associated encephalomalacia and gliosis about the resection cavity appeared unchanged. There was stable subdural hygroma overlying the left frontal lobe. A tiny amount of gliosis and a tiny focus of enhancement in the right occipital lobe appeared less prominent. There is no evidence of new or progressed disease. Restaging chest CT on 07/29/2021 showed stable left hilar soft tissue mass measuring 1.2 x 2.3 cm. The left perihilar infiltrate also appeared stable as did groundglass opacity in the right upper lobe. There is no new mass or adenopathy noted. She is seen for a follow-up visit. She has been feeling pretty good generally, though she says she does get tired out. Her ECOG score is 1. She has good appetite, though she generally eats just 2 meals a day. Her weight is down a few pounds. She does not have fever or night sweats. She always has sinus drainage and she has a little bit of cough. She is sometimes short of breath with activity. She does not complain of chest pain. She has no GI or complaints. She has some arthritis pain, mainly in her hands. She occasionally has headache and she occasionally has dizziness. She has no numbness/paresthesia or other focal neurologic symptoms. Medications: Atorvastatin Calcium 1 Tablet (of 80 mg) Oral daily, Bystolic 1 Tablet (of 5 mg) Oral daily, Captopril 1 Tablet (of 25 mg) Oral b.i.d., Ondansetron HCl 1 Tablet (of 4 mg) Oral b.i.d., Prochlorperazine Maleate 1 Tablet (of 10 mg) Oral b.i.d., Protonix 1 Tablet (of 40 mg) Tablet, enteric coated Oral daily Allergies: No Known Allergies. Vital Signs: Performed on Aug 09, 2021 14:43 Height - 60.00 in Weight - 125.8 lbs (LOW) BSA - 1.53 sq.m BMI - 24.57 Temperature - 97.7 F (LOW) Pulse - 73 /min Respiration - 18 /min BP - 148/76 mm(hg) (HIGH) O2 Sat - 96 % Pain - 0 Fatigue - 4 Physical Examination: Constitutional - She looks pretty good generally, Eyes - Sclerae nonicteric. Conjunctivae clear, ENMT - No lesions noted in the oral cavity, Hematologic/Lymphatic - No cervical, clavicular, or axillary adenopathy, Respiratory - Lungs are clear with some decrease in air movement bilaterally, Cardiovascular - Heart rhythm is regular. There is no murmur, gallop, or rub noted, Abdomen - Soft. Liver and spleen are not enlarged. There is no abdominal mass or ascites noted and there is no inguinal adenopathy, Extremities - Slight edema, Neurologic - No focal neurologic deficits noted. Lab/Imaging: Test performed on Aug 09, 2021 11:55 Sodium 140 mmol/L Potassium 4.3 mmol/L Chloride 105 mmol/L CO2 23 mmol/L Anion Gap 16.3 BUN 13 mg/dL Creatinine 0.9 mg/dL Cr Clearance (Est) 45.9500 mL/min Glucose 86 mg/dL Osmolality - Calculated 289 mOsm/kg Calcium 8.6 mg/dL Protein, Total 6.0 g/dL Albumin 3.7 g/dL Globulin 2.3 g/dL Bilirubin, Total 0.4 mg/dL ALT (SGPT) 6 U/L AST (SGOT) 19 U/L Alkaline Phosphatase 55 IU/L WBC 8.0 10 3/uL RBC 3.96 10 6/uL HGB 12.3 g/dL HCT 36.9 % MCV 93.2 fl MCH 31.1 pg MCHC 33.3 g/dL RDW 13.2 % Platelet Count 233 10 3/cmm MPV 9.7 fL Neutrophils 5.11 10 3/uL Lymphocytes 1.9 10 3/uL Monocytes 0.7 10 3/uL Eosinophils 0.2 10 3/uL Basophils 0.1 10 3/uL Neutrophil % 64.2 % Lymphocyte % 23.8 % Monocyte % 9.1 % Eosinophil % 1.9 % Basophils % 0.6 % NRBC % 0 % Problem List: 1. Adenocarcinoma involving the hilar region of the left lung, stage SUMIT (T2b, N0, M1b), presenting in April 2019 with a single site of metastatic involvement in the left frontal lobe of the brain. She underwent resection of the left frontal lobe metastasis on 04/28/2019 followed by CyberKnife radiosurgery, completed on 06/04/2019. Pathology showed metastatic adenocarcinoma consistent with lung primary. The tumor was negative for ALK and ROS1 rearrangements, and EGFR and BRAF mutations were not detected. The tumor showed positive PD-L1 expression at 10% (membranous positivity). 3. She underwent CyberKnife radiosurgery to the site of brain involvement, completed on 06/04/2019. 4. She then underwent treatment to the primary lesion in the left lung with radiation concurrently with weekly carboplatin/paclitaxel chemotherapy. Radiation was completed on 08/01/2019. She received a total of 6 weekly infusions of chemotherapy. 5. Hypertension. 6. Hyperlipidemia. 7. Coronary artery disease with previous myocardial infarction and with triple coronary bypass in 2003. 8. Congestive heart failure. 9. Carotid stenosis with previous right carotid endarterectomy. 10. Peripheral arterial disease with previous aortofemoral bypass and femoropopliteal bypass bilaterally. 11. Renal artery stenosis with previous renal artery stent placement. 12. Chronic kidney disease. 13. Her records indicate a history of clostridium difficile colitis. Problems Addressed with this Encounter and Plan: 1. 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 She underwent resection of the left frontal lobe metastasis on 04/28/2019. Pathology showed metastatic adenocarcinoma consistent with lung primary. The tumor was negative for ALK and ROS1 rearrangements, and EGFR and BRAF mutations were not detected. The tumor showed positive PD-L1 expression at 10% (membranous positivity). She then underwent CyberKnife radiosurgery to the site of brain involvement, completed on 06/04/2019. She underwent treatment to the primary lesion in the left lung with radiation concurrently with weekly carboplatin/paclitaxel chemotherapy. Radiation was completed on 08/01/2019. She received a total of 6 weekly infusions of chemotherapy. She did show some response by follow-up chest CT. She began maintenance immunotherapy with durvalumab on 09/15/2019. She then completed a year of maintenance immunotherapy. Her restaging CT scans showed continued slight decrease in the left hilar neoplasm. There was a slight increase in the right upper lobe pulmonary nodule, and low-grade neoplasm was not excluded. There was no evidence of metastatic disease. Given the findings, she was then followed expectantly. During follow-up her clinical status has remained stable. Thus far there has been no evidence of progression of the lung cancer on her surveillance CT scans. She continues on expectant management. She indicates that she will be moving to [place], [place] by the end of the next month so that she can be closer to family. Her records and imaging discs will be forwarded once she has identified a primary care provider in that area. 2. Her repeat brain MRI on 10/29/2019 showed a new metastatic lesion in the right occipital lobe measuring 11 mm. There was surrounding vasogenic edema. There was no evidence of recurrent tumor at the left frontal lobe resection site. She was seen by the radiation oncologist at [facility], and she underwent CyberKnife radiosurgery. Treatment included a single fraction of 2400 cGy delivered on 11/20/2019. She had a good response. Follow-up head MRI studies in July and in August 2020 showed findings suspicious for progression at the site of the left frontal lobe resection. However, she was then seen in follow-up by the radiation oncologist at [facility], and it was recommended that she continue observation for the brain. Her further surveillance MRI studies remained stable with no definite evidence of disease progression, and she continued expectant management. Her repeat brain MRI on 07/25/2021 showed no evidence of new or progressed disease. As such, she continues expectant management. Signed By: Ray Wade M.D. <<Signature on File>>
== END 2021-08-09 11:18 | disposition home or self-care (01) ==
LOC: ONCMED 11:22
PROVIDERS: Visit Provider Internal Medicine Medical Oncology
DX: Z08 Encounter for follow-up examination after completed treatment for malignant neoplasm (principal); Z85.118 Personal history of other malignant neoplasm of bronchus and lung; Z85.841 Personal history of malignant neoplasm of brain; I10 Essential (primary) hypertension; E78.5 Hyperlipidemia, unspecified; I25.10 Atherosclerotic heart disease of native coronary artery without angina pectoris; I25.2 Old myocardial infarction; Z95.5 Presence of coronary angioplasty implant and graft; I50.9 Heart failure, unspecified; I65.21 Occlusion and stenosis of right carotid artery; I73.9 Peripheral vascular disease, unspecified; I70.1 Atherosclerosis of renal artery; N18.9 Chronic kidney disease, unspecified; Z86.19 Personal history of other infectious and parasitic diseases; Z79.899 Other long term (current) drug therapy; Z92.21 Personal history of antineoplastic chemotherapy
CPT/HCPCS: 36591; 80053; 85025; 99214

== ENCOUNTER 2023-02-18 15:05 | Emergency (ER) | payer MEDICARE, OTHER, SELFPAY ==
[2023-02-18] VITALS (25 sets, daily range): BP systolic 127–156; BP diastolic 23–114; PULSE 65–73; RESP 14–34; BMI 26.7
--- NOTE | 2023-02-18 15:15 | ECG_ITS ---
[facility] Test Date: 2023-02-18 Pat Name: Lola Lozano Department: Room: Gender: Female [employer]: : 1940 Requested By: Armen Calix Order Number: [id number] Marc MD: Tori Clifton M.D. Measurements Intervals Winnie Rate: 69 P: 87 SD: 192 QRS: -34 QRSD: 160 T: 126 QT: 491 QTc: 528 Interpretive Statements SINUS RHYTHM LEFT AXIS DEVIATION [QRS AXIS < -30] LEFT BUNDLE BRANCH BLOCK [120+ ms QRS DURATION, 80+ ms Q/S IN V1/V2, 85+ ms R IN I/aVL/V5/V6] Compared to ECG 09/01/2019 12:28:25 Left-axis deviation now present Left bundle-branch block now present Sinus arrhythmia no longer present Left ventricular hypertrophy no longer present ST (T wave) deviation no longer present Electronically Signed On 02-19-2023 11:08:57 CDT by Tori Clifton M.D. [id number]
--- NOTE | 2023-02-18 15:20 | XRR_ITS ---
PROCEDURE INFORMATION: Exam: XR Chest Exam date and time: 02/18/2023 3:34 PM Age: 82 years old Clinical indication: Other: AMS TECHNIQUE: Imaging protocol: Radiologic exam of the chest. Views: 1 view. COMPARISON: CT chest w con* [id number] 07/29/2021 11:04 AM FINDINGS: Tubes, catheters and devices: Central venous catheter tip projects over the superior vena cava. There are post-sternotomy changes and postoperative changes overlying the mediastinum. Multiple surgical clips overlie the left perihilar region. Lungs: There are streaky opacities at the left perihilar region. Pleural spaces: Left costophrenic angle is not well seen precluding optimal evaluation for pleural effusion. Heart/Mediastinum: Cardiomegaly. Bones/joints: Unremarkable. XR/XR chest 1V portable [id number] IMPRESSION: 1. Cardiomegaly. 2. There are streaky opacities at the left perihilar region. Differential includes scarring and or atelectasis.
[2023-02-18 15:28] LABS: Glucose Point of Care 35 mg/dL (70-110)
[2023-02-18 15:33] LABS: ABG PH Result 7.22 (7.35-7.45); Alveolar-Arterial Oxygen Gradi 3.6 mmHg (5-10); Arterial Blood Gas Hematocrit 28.6 % (37-47); Base Excess ABG -18.9 mmol/L (-2.0-2.0); Blood Gas Allen Test Pos; Blood Gas Operator Identificat glc; Blood Gas Sample Site Radial, left; Blood Gas Sample Type Arterial; Carboxyhemoglobin 0.7 %THgb (0.4-20.1); HCO3 ABG 6.8 mmol/L (22-26); HGB O2 Sat 98.4 % (95-100); Methemoglobin 0.4 % (0.4-1.5); Oxygen Device NC; Oxygen Saturation ABG 99.6; Potassium Level - ABG 5.7 mmol/L (3.5-5.0); Total Hemoglobin 9.3 g/dL (12-16)
[2023-02-18 15:34] LABS: ABG PCO2 16.8 mmHg (35-45)
--- NOTE | 2023-02-18 15:35 | ED_ITS ---
HPI - Altered Mental Status General: Chief Complaint: Altered Mental Status Stated Complaint: AMS Time Seen by Provider: 02/18/23 15:19 Limitations: altered mental status History of Present Illness: Patient presents to the ER by EMS with altered mental status. Unknown last well time. EMS said when they got there patient was was almost unresponsive they checked her blood sugar and it read low. Patient was given 2 doses of D5 and her blood sugar went up to 119 and patient become somewhat more responsive. Patient's blood pressure per EMS this was in the 50s when she arrived here it was in the 80s. Patient is lethargic but will answer questions and follow commands. There are no localizing focal neurologic signs noted. We rechecked her blood sugar and it was 35 again MD complaint: altered mental status Onset (ago): unknown Severity: moderate Consistency of symptoms: Constant Review of Systems General: Reports: ROS unobtainable due to medical condition and ROS unobtainable due to mental status PFS ED PFSH: Medical History Port-A-Cath in place Family History Mother Cancer bone cancer Brother Cancer Social History Smoking and tobacco status: former smoker Quit status (tobacco): has quit using tobacco Second hand smoke exposure: No Alcohol intake: never Substance/Drug Use: never Adopted: No Caregiver/support person: Yes Lives independently: Yes Household members: spouse Housing: House Marital status: Number of children: 2 Number of grandchildren: 5 Highest education level completed: High School Graduate service: No Current occupational status: retired Current occupational exposures/hazards: No Pets and animals: Yes Pets & animals: dog(s) Sexually active: No Do you think of yourself as: Straight/Heterosexual Current gender identity: Female Regla/Restorationism: None Special regla needs: No Agree to transfusion: No Financial difficulty paying for basics: Not Very Hard Female Reproductive History: Para: 2 Spontaneous abortions: No Physical Exam Const: EXAM LIMITATIONS: altered mental status HENMT: COMMON NORMALS: normocephalic, atraumatic, hearing grossly normal bilaterally, external ears normal, Normal external nose present and moist oral mucous membranes HEAD & SCALP: normocephalic and atraumatic NOSE: Normal external nose present EXTERNAL EAR: Yes external ears normal Eye: COMMON NORMALS: Equal, round and reactive pupils present, EOMs intact bilaterally, conjunctivae normal and no scleral icterus CONJUNCTIVA: Yes conjunctivae normal PUPIL: Yes Equal, round and reactive pupils present Neck/C-Spine: COMMON NORMALS: full ROM, no lymphadenopathy, supple, no meningeal signs, no JVD and Thyroid normal THYROID: Thyroid normal Chest: COMMONS NORMALS: normal inspection of the chest and normal palpation of entire chest wall Resp: COMMON NORMALS: normal respiratory effort, No retractions, No use of accessory muscles and clear to auscultation bilaterally AUSCULTATION: clear to auscultation bilaterally Cardio: COMMON NORMALS: no JVD, regular rate, regular rhythm, S1 normal heart sound present, S2 normal heart sound present, No gallops present (Cardio), No clicks present (Cardio), No murmurs present (Cardio) and No rub (Cardio) RATE: regular rate RHYTHM: regular rhythm HEART SOUNDS: S1 normal heart sound present and S2 normal heart sound present GI: COMMON NORMALS: Normal to inspection, nondistended, normoactive bowel sounds present, Soft to palpation, non-tender, No hepatosplenomegaly present and no masses PALPATION: Yes Soft to palpation and Yes No hepatosplenomegaly present Neuro: MENINGEAL SIGNS: Yes no meningeal signs Course Vital Signs: Vital signs: Vital Signs Pulse Rate 66 02/18/23 17:50 Respiratory Rate 22 H 02/18/23 17:50 Blood Pressure 137/114 02/18/23 17:20 Oxygen Delivery Me thod Nasal Cannula 02/18/23 17:10 Oxygen Flow Rate 2 02/18/23 17:10 MDM - Altered Mental Status Medical Decision Making Patient presented by EMS for altered mental status and hypoglycemia. EMS had an IV started gave her several doses of the 5 which brought her blood sugar very minimally up. Patient was given amp of D50 here followed up by D10 had 100 mL an hour. Patient was minimally alert would follow simple very simple commands. Lab work was obtained which showed white count of 10.6 hemoglobin hematocrit of 7.6 25.9 and platelets of 25, ABG was obtained which showed a pH of 7.2 PCO2 of 16.8 and PO2 of 172 and bicarb of 6.8. Metabolic panel showed potassium of 5.8 BUN/creatinine 29 and 1.9 lactic acid of 18.3 magnesium 2.7 total bilirubin 2.6 AST greater than 10,000 and ALT 4542, urinalysis showed 1+ protein 1+ ketones 3+ blood 1+ bilirubin 1+ urobilinogen, chest x-ray showed cardiomegaly with streaky opacities in the left perihilar region differential includes scarring and ate lectasis, head CT shows stable postop changes no acute intracranial injury. During the time the patient was here while waiting for lab work and her CT scans all to come back patient went apneic and shortly after that bradycardia down to asystole. Patient is a DNR we have in her chart. Time of was called at 1808. Differential Diagnosis Likely altered mental status and hypoglycemia; Unlikely alcoholic intoxication, delirium, dementia, hyponatremia, subarachnoid hemorrhage or sepsis Medical Records I reviewed the patient's medical records. Lab Data 02/18/23 15:40 02/18/23 15:40 Radiology Impressions Chest X-Ray 02/18/23 15:20 IMPRESSION: 1. Cardiomegaly. 2. There are streaky opacities at the left perihilar region. Differential includes scarring and or atelectasis. Head CT 02/18/23 16:30 IMPRESSION: 1. Stable postoperative changes with associated encephalomalacia and gliosis in the left frontal lobe. 2. There are senescent changes of the brain as described above. No evidence for large acute ischemic infarction or acute intracranial injury. Laboratory Results WBC 10.6 10^3/uL (4.0-10.0) H 02/18/23 15:40 RBC 2.46 10^6/uL (4.1-5.3) L 02/18/23 15:40 Hgb 7.6 g/dL (11.5-15.3) L 02/18/23 15:40 Hct 25.9 % (37.0-47.0) L 02/18/23 15:40 MCV 105.3 fl (81-99) H 02/18/23 15:40 MCH 30.9 pg (28.0-34.0) 02/18/23 15:40 MCHC 29.3 g/dL (30.0-36.0) L 02/18/23 15:40 RDW 15.1 % (12.1-15.1) 02/18/23 15:40 Plt Count 25 10^3/cmm (130-400) L* 02/18/23 15:40 MPV 8.1 fL (7.4-10.4) 02/18/23 15:40 Neut % (Auto) 81.7 % 02/18/23 15:40 Lymph % (Auto) 5.6 % 02/18/23 15:40 [place] % (Auto) 9.6 % 02/18/23 15:40 Eos % (Auto) 0.0 % 02/18/23 15:40 Baso % (Auto) 0.2 % 02/18/23 15:40 Neut # (Auto) 8.66 10^3/uL (1.8-7.7) H 02/18/23 15:40 Lymph # (Auto) 0.6 10^3/uL (0.8-4.8) L 02/18/23 15:40 [place] # (Auto) 1.0 10^3/uL (0.2-0.9) H 02/18/23 15:40 Eos # (Auto) 0.0 10^3/uL (0.0-0.8) 02/18/23 15:40 Baso # (Auto) 0.0 10^3/uL (0.0-0.1) 02/18/23 15:40 Nucleated RBC % (auto) 0.7 % 02/18/23 15:40 Nucleated RBCs # 0.1 /100WBC 02/18/23 15:40 Specimen Type Arterial 02/18/23 15:23 Sample Site Radial, left 02/18/23 15:23 ABG pH 7.22 (7.35-7.45) L 02/18/23 15:23 ABG pCO2 16.8 mmHg (35-45) L* 02/18/23 15: ABG pO2 172.0 mmHg (80.0-100.0) H 02/18/23 15: ABG HCO3 6.8 mmol/L (22-26) L 02/18/23 15: ABG O2 Saturation 99.6 02/18/23 15:23 ABG Base Excess -18.9 mmol/L (-2.0-2.0) L 02/18/23 15:23 Link Test Pos 02/18/23 15:23 A-a O2 Gradient 3.6 mmHg (5-10) L 02/18/23 15:23 Hematocrit 28.6 % (37-47) L 02/18/23 15:23 Hgb O2 Saturation 98.4 % (95-100) 02/18/23 15:23 Carboxyhemoglobin 0.7 %THgb (0.4-20.1) 02/18/23 15:23 Methemoglobin 0.4 % (0.4-1.5) 02/18/23 15:23 Total Hemoglobin 9.3 g/dL (12-16) L 02/18/23 15:23 Sodium 140.0 mmol/L (131-143) 02/18/23 15:23 Potassium 5.7 mmol/L (3.5-5.0) H 02/18/23 15:23 Glucose 35.0 mg/dL (70-115) L 02/18/23 15:23 Ionized Calcium 1.0 mmol/L (1.1-1.4) L 02/18/23 15:23 O2 Delivery Device Nc 02/18/23 15:23 O2 Liters/Min 3.0 % 02/18/23 15:23 FiO2 32.0 % 02/18/23 15:23 Er Registrar ID glc 02/18/23 15:23 Sodium 137 mmol/L (136-145) 02/18/23 15:40 Potassium 5.8 mmol/L (3.5-5.1) H 02/18/23 15:40 Chloride 97 mmol/L (98-107) L 02/18/23 15:40 Carbon Dioxide 9 mmol/L (22-29) L 02/18/23 15:40 Anion Gap 36.8 (5-19) H 02/18/23 15:40 BUN 29 mg/dL (8-23) H 02/18/23 15:40 Creatinine 1.9 mg/dL (0.5-0.9) H 02/18/23 15:40 GFR Calculation Not Reportable 02/18/23 15:40 Glucose 242 mg/dL (65-115) H 02/18/23 15:40 POC Glucose 239 mg/dL (70-110) H 02/18/23 17:51 Calculated Osmolality 298 mOsm/kg (285-295) H 02/18/23 15:40 Lactic Acid 18.3 mmol/L (0.5-2.2) H* 02/18/23 15:40 Calcium 7.8 mg/dL (8.5-10.5) L 02/18/23 15:40 Magnesium 2.7 mg/dL (1.7-2.3) H 02/18/23 15:40 Total Bilirubin 2.6 mg/dL (0.15-1.2) H 02/18/23 15:40 AST > 11658 U/L (0-32) H 02/18/23 15:40 ALT 4542 U/L (0-33) H 02/18/23 15:40 Alkaline Phosphatase 52 U/L (35-105) 02/18/23 15:40 Total Protein 3.9 g/dL (6.6-8.7) L 02/18/23 15:40 Albumin 2.5 g/dL (3.5-5.2) L 02/18/23 15:40 Globulin 1.4 g/dL (1.3-4.6) 02/18/23 15:40 Procalcitonin 0.30 ng/mL (0-0.5) 02/18/23 15:40 Urine Color Yellow (Yellow) 02/18/23 16:07 Urine Appearance Hazy (CLEAR) A 02/18/23 16:07 Urine pH 5 (5-7) 02/18/23 16:07 Ur Specific Caroleen 1.025 (1.005-1.030) 02/18/23 16:07 Urine Protein 1+ (Negative) H 02/18/23 16:07 Urine Glucose (UA) Norm (Normal) 02/18/23 16:07 Urine Ketones 1+ (Negative) H 02/18/23 16:07 Urine Blood 3+ (Negative) H 02/18/23 16:07 Urine Nitrate Negative (Negative) 02/18/23 16:07 Urine Bilirubin 1+ (Negative) H 02/18/23 16:07 Urine Urobilinogen 1 mg/dL (Negative) H 02/18/23 16:07 Ur Leukocyte Esterase Negative (Negative) 02/18/23 16:07 Urine RBC Rare /hpf (0-2) 02/18/23 16:07 Urine WBC None /hpf (0-5) 02/18/23 16:07 Ur Squamous Epith Cells 0-4 /hpf (0-5) H 02/18/23 16:07 Amorphous Sediment 2+ /hpf 02/18/23 16:07 Urine Bacteria 1+ /hpf (NONE) H 02/18/23 16:07 Hyaline Casts 0-4 /lpf H 02/18/23 16:07 Coarse Granular Casts 5-10 /lpf H 02/18/23 16:07 EKG Data EKG 1: I personally reviewed and interpreted this EKG as follows: EKG interpretation date: 02/18/23 EKG interpretation time: 15:15 Prior EKG tracings: not available for review Interpretation: EKG showed ventricular rate 69 beats minute, PA interval 192, QRS duration 160, QTc 510, normal sinus rhythm, left axis deviation, left bundle branch block Discharge Plan Discharge Patient Disposition: Clinical Impression: Acute alteration in mental status, Cardiopulmonary arrest Condition: Stable Prescriptions: No Action Unable to Assess Coding Level of Care Code ED Tank Assembler for Errol Gregg
[2023-02-18] MEDS: dextrose 10% 250 ML 100 ML IV (15:45)
[2023-02-18 16:03] LABS: Basophils % 0.2 %; Hematocrit 25.9 % (37.0-47.0); Hemoglobin 7.6 g/dL (11.5-15.3); Lymphocytes # 0.6 10^3/uL (0.8-4.8); Lymphocytes % 5.6 %; Mean Corpuscular HGB Conc 29.3 g/dL (30.0-36.0); Mean Corpuscular Hemoglobin 30.9 pg (28.0-34.0); Mean Corpuscular Volume 105.3 fl (81-99); Mean Platelet Volume 8.1 fL (7.4-10.4); Monocytes % 9.6 %; Neutrophils # 8.66 10^3/uL (1.8-7.7); Neutrophils % 81.7 %; Nucleated Red Blood Cells # 0.1 /100WBC; Nucleated Red Blood Cells % 0.7 %; Red Blood Count 2.46 10^6/uL (4.1-5.3); Red Cell Distribution Width 15.1 % (12.1-15.1); White Blood Count 10.6 10^3/uL (4.0-10.0)
[2023-02-18 16:18] LABS: Platelet Count 25 10^3/cmm (130-400)
[2023-02-18 16:19] LABS: Slide Review Slide Review Perform
--- NOTE | 2023-02-18 16:30 | CTR_ITS ---
PROCEDURE INFORMATION: Exam: CT Head Without Contrast Exam date and time: 02/18/2023 4:43 PM Age: 82 years old Clinical indication: Altered mental status/memory loss; Prior surgery; Surgery date: 6+ months; Surgery type: Brain; Additional info: AMS TECHNIQUE: Imaging protocol: Computed tomography of the head without contrast. Radiation optimization: All CT scans at this facility use at least one of these dose optimization techniques: automated exposure control; mA and/or kV adjustment per patient size (includes targeted exams where dose is matched to clinical indication); or iterative reconstruction. REPORTING DATA: Count of CT and Cardiac NM exams in prior 12 months: This patient has received 0 known CTs and 0 known cardiac nuclear medicine studies in the 12 months prior to the current study. COMPARISON: MR head wo/w con [id number] 07/25/2021 12:53 PM RADIATION DOSE METRICS: Total DLP (mGy-cm): 858.18 FINDINGS: Brain: There is diffuse cerebral atrophy present, consistent with this patient's age. Periventricular and subcortical white matter low densities are present which at this age likely represent microvascular ischemic change. No evidence for large acute ischemic infarction. Please note acute ischemia can be occult by head CT. No evidence for acute intracranial hemorrhage. Calcified plaque is present within the intracranial vasculature. Cerebral ventricles: Mild dilatation ex vacuo of the left lateral ventricle stable from the prior MRI. Paranasal sinuses: Visualized sinuses are unremarkable. No fluid levels. Mastoid air cells: Visualized mastoid air cells are well aerated. Bones/joints: Left frontal craniotomy changes with left frontal lobe resection cavity. There is adjacent associated encephalomalacia and gliosis. Soft tissues: Unremarkable. CT/CT head wo con* [id number] IMPRESSION: 1. Stable postoperative changes with associated encephalomalacia and gliosis in the left frontal lobe. 2. There are senescent changes of the brain as described above. No evidence for large acute ischemic infarction or acute intracranial injury.
[2023-02-18 16:37] LABS: Add Urine Microscopic? YES; Bilirubin Urine 1+ (Negative); Blood Urine 3+ (Negative); Glucose Urine UA Norm (Normal); Ketones Urine 1+ (Negative); Leukocyte Esterase Urine Negative (Negative); Nitrate Urine Negative (Negative); Protein Urine 1+ (Negative); Specific Gravity, Urine 1.025 (1.005-1.030); Urine Appearance Hazy (CLEAR); Urine Color Yellow (Yellow); Urobilinogen Urine 1 mg/dL (Negative); pH Urine 5 (5-7)
[2023-02-18 16:38] LABS: Add Urine Culture? No; Amorphous Sediment Urine 2+ /hpf; Bacteria Urine 1+ /hpf; Hyaline Casts Urine 0-4 /lpf; RBC Urine RARE /hpf (0-2); Squamous Epithelial Cell Urine 0-4 /hpf (0-5)
[2023-02-18 16:54] LABS: Albumin Level 2.5 g/dL (3.5-5.2); Alkaline Phosphatase 52 U/L (35-105); Anion Gap 36.8 (5-19); Blood Urea Nitrogen 29 mg/dL (8-23); Calcium 7.8 mg/dL (8.5-10.5); Chloride 97 mmol/L (98-107); Globulin 1.4 g/dL (1.3-4.6); Glucose 242 mg/dL (65-115); Magnesium 2.7 mg/dL (1.7-2.3); Osmolality Calculated 298 mOsm/kg (285-295); Potassium 5.8 mmol/L (3.5-5.1); Sodium 137 mmol/L (136-145); Total Bilirubin 2.6 mg/dL (0.15-1.2); Total Protein 3.9 g/dL (6.6-8.7)
--- NOTE | 2023-02-18 16:56 | PC.PHAR ---
pt unable to verify medications-pts boyfriend/ alex [phone] states he doesnt know anything about if the pt takes medications or not states the pt is a loner -[facility] states not filled medications since 2019-medications that were last updated in system was on 09/11/2019 of lipitor 10mg-bystolic 5mg-captopril 25mg -felodipine er 5mg-zofran 4mg and compazine 10mg-no meds pull up on ext med history
[2023-02-18 17:01] LABS: Lactic Sepsis W/Reflex 18.3 mmol/L (0.5-2.2)
[2023-02-18 17:05] LABS: Alanine Aminotransferase 4542 U/L (0-33)
[2023-02-18 17:13] LABS: Carbon Dioxide 9 mmol/L (22-29)
[2023-02-18 17:16] LABS: Reflex Lactate Order REFLEX LACTIC ORDERD
[2023-02-18] MEDS: sodium chloride 0.9% 1,000 ML 999 ML IV (17:54)
[2023-02-18 17:55] LABS: Glucose Point of Care 239 mg/dL (70-110)
--- NOTE | 2023-02-18 18:11 | PC.NURSE ---
CAME INTO PT ROOM TO START MEDICATION. PT NOTED TO BE COOL TO THE TOUCH, PALE, AND AGONAL BREATHING. DR BROOKS NOTIFIED. PT COPY OF DNR AT BEDSIDE AND CONFIRMED BY DANIEL CASTRO, DR BROOKS, JAVY GHOTRA, AND ELIS Mccord RN TO WITHHOLD ALL LIFE SAVING MEASURES WITNESSED AND SIGNED COPY BY PT. PT WAS BRADYCARDIC WITH HR IN THE 20'S. TIME OF CONFIRMED BY DR BROOKS AT 1808 AFTER NO PULSE AND ASYSTOLE ON MONITOR NOTED.
== END 2023-02-18 20:10 | disposition expired ==
PROVIDERS: Emergency Provider Emergency Medicine
DX: R41.82 Altered mental status, unspecified (principal); I44.7 Left bundle-branch block, unspecified; E16.2 Hypoglycemia, unspecified; I46.9 Cardiac arrest, cause unspecified; Z66 Do not resuscitate
CPT/HCPCS: 36415; 36416; 36600; 51702; 70450; 71045; 80051; 80053; 81001; 82330; 82805; 82962; 83605; 83735; 84145; 85025; 87040; 93005; 96360; 96361; 99285; 99291; J7030; J7799